=== PATIENT | female | born 1970 | race Caucasian/White ===

== ENCOUNTER 2018-08-04 10:23 | Emergency (ER) | payer SELFPAY ==
[2018-08-04 10:24] VITALS: BP 205/113; PULSE 84; RESP 16; TEMP 36.6; O2SAT 98; BMI 39.1
[2018-08-04 10:48] VITALS: BP 174/100; PULSE 76; RESP 16; O2SAT 98
--- NOTE | 2018-08-04 10:56 | EKG12_ITS ---
Test Reason : HTN Blood Pressure : / mmHG Vent. Rate : 065 BPM Atrial Rate : 065 BPM P-R Int : 204 ms QRS Dur : 164 ms QT Int : 446 ms P-R-T Axes : 066 -03 026 degrees QTc Int : 463 ms Normal sinus rhythm with sinus arrhythmia Right bundle branch block Abnormal ECG Confirmed by JUSTYN RONDON, GERONIMO ([id number]), city editor RHYS ALEJO ([id number]) on 08/06/2018 1:23:47 PM Referred By: OSIEL Confirmed By:GERONIMO ALEJANDRA MD
--- NOTE | 2018-08-04 10:59 | ED.DCSUM_ITS ---
- ER Visit Summary Date of Service: 08/04/18 Chief Complaint: High blood pressure History of Present Illness: The patient is a [address] Chin. She is unsure what her blood pressure typically is. She reports that she reports that she was told her blood pressure was slightly elevated at her last visit with Dr. Chin. She is not on any medications for this. She reports that she went to the dentist to have teeth pulled today and that her blood pressure was elevated so they were sent her here for evaluation. Patient reports that she feels great. She denies any chest pain, shortness of breath, headache, numbness, weakness, blurred or double vision. Review of systems: General: No fever, chills, cold sweats. Cardiovascular: No chest pain, palpitations. Respiratory: No cough, shortness of breath, dyspnea on exertion. Gastrointestinal: No abdominal pain, nausea, vomiting, diarrhea, melena, or hematochezia. Genitourinary: No dysuria, frequency, hematuria. Skin: No rash. Neuro: No headache, numbness, weakness. Physical Examination: Vitals: Stable. Afebrile. General: Well-nourished and well-developed. Head: Normocephalic atraumatic. Neck: Supple, no lymphadenopathy. No JVD. Nontender. Cardiovascular: Regular rate and rhythm. No murmurs. Respiratory: No respiratory distress. Clear to auscultation bilaterally. Abdominal: Soft, nontender, nondistended, normal bowel sounds. No guarding, rebound, or peritoneal signs. Back: Nontender. Extremities: Nontender, no edema. Skin: Normal color, no rash. Neurologic: Alert and oriented ?3. Cranial nerves II through XII are intact. Normal strength and sensation. Psych: Normal affect. Test Results: EKG is sinus at 65 with right bundle branch block. There is no old EKG for comparison. CBC is normal. Chem-7 is remarkable for potassium 3.4 and calcium of 11.0. Albumin is 3.7. Parathyroid hormone is 270.1. TSH is 16.3. Emergency Department Course and Treatment: Patient's blood pressure came down to 155/105 without treatment. Treatment Plan: Patient was discussed with Dr. Chin. She will be placed on atenolol 25 mg p.o. daily. She will have 50 mcg of levothyroxine added. Instructed to follow-up Dr. Chin within 1-2 weeks for further evaluation of her blood pressure and hyperparathyroidism. Return to the emergency department for any worsening symptoms. Disposition: To home in improved and stable condition. Impression: 1. Hypertension. 2. Hyperparathyroidism. 3. Elevated TSH on levothyroxine. This note was generated with [employer] dictation software. It may contain incorrect words, spelling, and punctuation that were not noted in review of the chart prior to signing ED Disposition - Plan for ED Patient: Chief Complaint: Hypertension Instructions: ED Hypertension New Begin Tx, Understanding Hyperparathyroidism Prescriptions: Atenolol [Tenormin] 25 mg PO DAILY #30 tablet Levothyroxine [Synthroid] 50 mcg PO DAILY #30 tablet Referrals: Rosa Elena Chin MD [Primary Care Provider] - 1-2 Weeks
[2018-08-04 11:19] LABS: Absolute Lymphocyte Count 1.08 X10^3/ul (0.83-4.51); Absolute Neutrophil Count 3.4 X10^3/uL (2.0-7.7); Basophil# 0.02 X10^3/uL; Basophil% 0.4 % (0-1); Eosinophil# 0.09 X10^3/uL; Eosinophils% 1.8 % (0-5); Lymphocyte # 1.08 X10^3/ul (4.0); Mean Corp Hgb Conc 34.2 g/gl (32-36); Mean Corpuscular Volume 84.6 fL (81-99); Mean Platelet Vol. 9.4 fl (6.2-12.0); Monocyte% 6.1 % (0-10); Neutrophil # 3.41 X10^3/uL (2.7-7.7); Neutrophil % 69.7 % (47-70); Platelet Count 285 K/mm3 (150-450); RBC Distribution Width CV 15.3 % (11.6-14.6); RBC Distribution Width SD 47.2 fl (35.1-43.9); Red Blood Count 4.49 M/mm3 (4.2-5.4); White Blood Count 4.9 K/mm3 (4.4-11.0)
[2018-08-04 11:20] LABS: POSITIVE COUNT NO; POSITIVE DIFFERENTIAL NO; POSITIVE MORPHOLOGY NO
[2018-08-04 11:41] LABS: Anion Gap 9 (5-15); BUN 16 mg/dL (7-18); BUN/Creat Ratio 25.9 RATIO (10-20); Chloride 106 mmol/L (98-107); Creatinine, Serum 0.62 mg/dL (0.55-1.02); EST Glomerular Filtration Rate 109 mL/min (>60); Est Glom Filt Rate - Afr Amer 132 mL/min (>60); Estimated Creatinine Clearance 107.91 ml/min; Glucose 104 mg/dL (74-106); Potassium 3.4 mmol/L (3.5-5.1); Sodium Level 140 mmol/L (136-145)
[2018-08-04 12:19] LABS: Albumin, Serum 3.7 g/dL (3.2-5.0)
[2018-08-04 12:24] VITALS: BP 161/117; PULSE 65; RESP 16; O2SAT 97
[2018-08-04 12:35] LABS: PTHIN 270.1 pg/mL (18.4-80.1)
[2018-08-04 13:19] VITALS: BP 181/106; PULSE 68; RESP 18; O2SAT 99
--- NOTE | 2018-08-04 13:19 | ED.RN ---
pt needed to leave d/t daughter waiting for her in car. informed pt she didn't have to wait for med from pharm if she didn't want to, that she could go get her script filled and take it today. pt verbalized liking that idea better and left.
== END 2018-08-04 13:21 | disposition home or self-care (01) ==
PROVIDERS: Emergency Provider Emergency Medicine; Family Provider Internal Medicine; PCP Internal Medicine
DX: I10 Essential (primary) hypertension (principal); E21.3 Hyperparathyroidism, unspecified; R79.89 Other specified abnormal findings of blood chemistry; I45.10 Unspecified right bundle-branch block; E03.9 Hypothyroidism, unspecified; Z79.899 Other long term (current) drug therapy
CPT/HCPCS: 80048; 82040; 82310; 83970; 84443; 84484; 85025; 93005; 99284; A4216

== ENCOUNTER → 2019-03-11 | Outpatient (CLI) | payer MEDICAID, SELFPAY ==
--- NOTE | 2019-03-11 | IMM_PTH ---
PATIENT: VANESSA DE LA PAZ LOC: [facility] U#:[id number] AGE/SX: 48/F ROOM: RE03/11/[address]: Dr. Yanely Cedeno MD : 1970 BED: DIS: 03/11/2019 SPEC #: [id number] RECD: 03/15/19 12:19 STATUS: [place] REQ #: [id number] KATHERINE: 03/11/19 00:[address]: Yanely Cedeno DEPT: IMMUNOHISTOCHEMISTRY RECD BY: Courtney Barber ENTERED: 03/15/19 12:21 SP TYPE: IMMUNO OTHR DR: Dr. Rosa Elena Chin MD Tissues: C - Thyroid gland, NOS Procedures: Thyroglobulin (add) BCL-2 (add) BCL-6 (add) CD10 (add) CD138 (add) CD20 (add) CD23 (add) CD3 (add) CD43 (add) CD45 (add) CD5 (add) CD79A (add) CYCLIN (add) MUM1 (add) Pankeratin (initial) PHYSICIAN & [address] [address] SPECIMEN INFORMATION: Tissue Source: C - Right thyroid FNA Clinical Info: Thyroid nodules Specimen Number: [id number] CPT code: 75867, 52180 x14 METHODOLOGY: Deparaffinized sections of prefer/formalin-fixed tissue or PAP/DQ stained slides are incubated with monoclonal/polyclonal antibodies/oligonucleotide probes. Localization is made via biotin free immunoperoxidase method. Appropriate controls are performed and reacted as expected. Results on target cell population are indicated in the following table: RESULTS: ANTIBODY / CLONE RESULT AE1-3 (AE1/AE3/PCK26) negative CD3 (PS1) positive CD5 (SP10) positive CD10 (56C6) positive CD20 (L26) positive CD23 (1B12) positive CD43 (L60) positive CD45 (RP2/18) positive CD79a (11E3) positive CD138 (B-A38) negative BCL-2 (bcl-2/100/D5) positive BCL-6 (YL676C/A8) positive Cyclin D1/BCL-1 (SP4) negative MUM1 (MRQ-43) negative Thyro (2H11+6E1) negative These tests were developed and their performance characteristics determined by [facility]. They may not have been cleared or approved by the U.S. Food and Drug Administration. The FDA has determined that such clearance or approval is not necessary. INTERPRETATION: Right thyroid, fine needle aspiration: Polytypic lymphoid cells present. AM:jovanny 03/16/19 Comment: Clinical correlation is necessary.
--- NOTE | 2019-03-11 14:00 | FLU_PTH ---
PATIENT: VANESSA DE LA PAZ LOC: [facility] U#:[id number] AGE/SX: 48/F ROOM: RE03/11/[address]: Dr. Yanely Cedeno MD : 1970 BED: DIS: 03/11/2019 SPEC #: [id number] RECD: 03/11/19 16:51 STATUS: [place] REKenny #: [id number] KATHERINE: 03/11/19 14:[address]: Yanely Cedeno DEPT: CYTOLOGY RECD BY: Gerardo Sofia ENTERED: 03/14/19 10:16 SP TYPE: Fluid OTHR DR: Dr. Rosa Elena Chin MD Tissues: A - Thyroid gland, NOS B - Thyroid gland, NOS C - Thyroid gland, NOS D - Thyroid gland, NOS Procedures: Special Stain Group II Surgery Specimen Level IV Cytospin Fluid HEADER OPERATION: Ultrasound-guided bilateral thyroid fine needle aspiration PRE-OP DIAGNOSIS: Thyroid nodules TISSUE SUBMITTED: A - Left thyroid FNA for cytology, B - Left thyroid FNA slides x6, C - Right thyroid FNA for cytology, D - Right thyroid FNA slides x6 DIAGNOSIS CYTOLOGY A. Fine needle aspiration, left thyroid nodule (cytospin and cell block): Negative for malignant cells. B. Fine needle aspiration, left thyroid nodule (smears): Chronic inflammation and rare follicular cells. Inadequate for further evaluation. C. Fine needle aspiration, right thyroid nodule (cytospin and cell block): Blood and polymorphous lymphocytes. Negative for malignancy. See comment. D. Fine needle aspiration, right thyroid nodule (smears): Consistent with chronic lymphocytic thyroiditis. AM:jovanny 03/15/19 COMMENT C. Immunohistochemistry ([id number]) supports the above diagnosis and reveals the lymphocytes to be polytypic. Clinical correlation is suggested. Case has been reviewed in consultation with Dr. Mckenna who concurs with the above diagnosis. IDC:SJ CYTOLOGY STUDY Slides are reviewed. CYTOLOGY GROSS A - Received is 27 ml of clear colorless fluid labeled with the patient's name and and designated per the requisition as left thyroid. Submitted for cytology preparation including cell block. B - Received are six smears labeled with the patient's name and designated per the requisition as left thyroid. Submitted for staining. C - Received is 27 ml of cloudy red fluid labeled with the patient's name and and designated per the requisition as right thyroid. Submitted for cytology preparation including cell block. D - Received are six smears labeled with the patient's name and designated per the requisition as right thyroid. Submitted for staining. 03/14/19 TC:3 CPT: 23237 x2, 54476 x2, 19528 x2
== END | disposition home or self-care (01) ==
LOC: LABSPEC 16:53
PROVIDERS: Family Provider Internal Medicine; PCP Internal Medicine; Referring Provider Surgery; Visit Provider Surgery
DX: E04.2 Nontoxic multinodular goiter (principal)
CPT/HCPCS: 88108; 88305; 88313; 88341; 88342

== ENCOUNTER 2019-06-06 02:21 | Inpatient (IN) | payer MEDICAID, SELFPAY ==
[2019-06-06] VITALS (21 sets, daily range): BP systolic 104–161; BP diastolic 60–128; PULSE 60–117; RESP 18–28; TEMP 36.4–36.8; O2SAT 73–98; BMI 41.3; BMI 41.1
--- NOTE | 2019-06-06 02:28 | ED.RN ---
CALLED FOR EKG PER RN REQUEST, PULLED OLD EKGS FOR
--- NOTE | 2019-06-06 02:30 | EKG12_ITS ---
Test Reason : SOB Blood Pressure : / mmHG Vent. Rate : 105 BPM Atrial Rate : 105 BPM P-R Int : 192 ms QRS Dur : 156 ms QT Int : 362 ms P-R-T Axes : 047 034 041 degrees QTc Int : 478 ms Sinus tachycardia Right bundle branch block Septal infarct , age undetermined Abnormal ECG Confirmed by JUSTYN RONDON, GERONIMO ([id number]), image editor CATHLEEN HENRIQUEZ ([id number]) on 06/07/2019 1:54:25 PM Referred By: ERIS Confirmed By:GERONIMO ALEJANDRA MD
--- NOTE | 2019-06-06 02:31 | CT_ITS ---
STUDY: CTA CHEST REASON FOR EXAM: Female, 48 years old. Dyspnea and tachycardia. RADIATION DOSAGE (If Supplied By Facility): CTDIvol = ( 15.04 ) mGy, DLP = ( 527.48 ) mGycm TECHNIQUE: The examination was performed with the intravenous administration of 100 ml of Isovue 370. Post-processing of the angiographic images was performed, with multiplanar reformation and 3D reconstruction. Individualized dose optimization techniques were used for this CT. COMPARISON: Prior comparison studies are not available for review at this time. FINDINGS: Normal enhancement of the main pulmonary artery and right and left pulmonary arteries. Normal enhancement of the bilateral peripheral pulmonary arteries. There is no demonstrated pulmonary embolism. There is atherosclerotic tortuosity of the aortic arch and descending thoracic aorta. Maximum transverse dimension of the ascending thoracic aorta measures approximately 3.5 cm. There is no demonstrated aortic dissection. Normal heart and pericardium. There are prominent subcarinal lymph nodes. There may also be hyperplastic prevascular and precarinal nodes. Normal hilar regions. Normal visualized trachea and bronchi. The lungs are well expanded. There is heterogeneous airspace consolidation within the right lung. There is also heterogeneous airspace consolidation within the lingula. Normal pleura. Normal chest wall structures. There are degenerative changes of thoracic spine. The sternum has a normal appearance. There is a severe enlargement of the right lobe of thyroid which is incompletely imaged on the current study. Estimated size of the thyroid measures approximately 8.9 cm in transverse dimension by 6.9 cm in AP dimension. Normal visualized upper abdomen. CT/CTA Chest W/WO Contrast IMPRESSION: 1. No CTA demonstrated pulmonary embolism or arterial dissection. 2. Extensive right-sided airspace consolidation as well as left upper lobe airspace disease suggesting pneumonia, sequela of aspiration pneumonitis or pulmonary hemorrhage. Electronically Signed: Alayna Mathew MD at 3:53 EDT , Service support ,
--- NOTE | 2019-06-06 02:32 | ED.DCSUM_ITS ---
- ER Visit Summary Date of Service: 06/06/19 Chief Complaint: Shortness of breath History of Present Illness: The patient is a 48 F who presents with shortness of breath that has been getting worse over the past week. Patient states she felt like she had pneumonia. Patient states she had an x-ray which did not show any acute infiltrate. Patient states her breathing became worse today. Patient states nothing seems to make her breathing better or worse. Patient admits to a cough. Patient denies any fevers or chills. Patient admits to some pain in her chest with coughing and deep breathing. Patient denies any leg swelling. Patient denies any recent travel or recent surgery. Physical Examination: Vital signs showed blood pressure 161/128, pulse of 114, respiratory rate of 26, pulse oximeter 73% on room air. Patient is afebrile. Heart was regular and tachycardic. Lungs were diminished bilaterally. There is adequate respiratory effort. There are no retractions noted. Abdomen is soft and nontender. Cranial nerves II through XII are intact. There are no focal m otor or sensory deficits noted. Extremities are intact. There is no pitting edema. There is no calf tenderness noted. Test Results: EKG showed sinus tachycardia with a rate of 105. There is a right bundle branch block pattern noted. There are no acute ST or T wave changes noted. This was unchanged compared to previous EKG dated 08/10/2018. CBC was within normal limits. Comprehensive metabolic profile shows slightly elevated glucose of 208. BUN was slightly elevated at 22. Troponin was normal. BNP was normal. Arterial blood gas showed a pH of 7.31 with a PCO2 of 37.8, PO2 of 96, bicarb of 19.0, and oxygen saturation of 97% on nonrebreather mask. CT scan of the chest was obtained. There is no evidence of pulmonary embolism. There is extensive right-sided airspace disease and left upper lobe airspace disease. Lactate was elevated at 3.3. Blood cultures were obtained. Emergency Department Course and Treatment: Patient was given a DuoNeb aerosol here. Patient was started on Levaquin. Patient was feeling better on reevaluation. Patient was able to tolerate nasal cannula oxygen. Case was discussed with the hospitalist. Disposition: Admit to hospital Impression: 1. Community-acquired pneumonia 2. Hypoxia 3. Severe sepsis This note was generated with Dragon dictation software. It may contain incorrect words, spelling, and punctuation that were not noted in review of the chart prior to signing ED Disposition - Plan for ED Patient: Disposition: Acute Care Hospital [facility] [place] Diagnosis: Community acquired pneumonia, Hypoxia, Severe sepsis Referrals: Rosa Elena Chin MD [Primary Care Provider] -
[2019-06-06 02:42] LABS: Absolute Lymphocyte Count 2.37 X10^3/ul (0.83-4.51); Absolute Neutrophil Count 2.5 X10^3/uL (2.0-7.7); Basophil# 0.06 X10^3/uL; Basophil% 1.1 % (0-1); Eosinophils% 3.7 % (0-5); Hematocrit 42.5 % (37-47); Hemoglobin 14.4 g/dl (12.0-15.0); Lymphocyte # 2.37 X10^3/ul (4.0); Lymphocyte % 43.4 % (19-41); Mean Corp Hgb Conc 33.9 g/gl (32-36); Mean Corpuscular Hgb 29.6 pg (27.0-32.0); Mean Corpuscular Volume 87.3 fL (81-99); Mean Platelet Vol. 9.6 fl (6.2-12.0); Monocyte# 0.33 X10^3/uL; Neutrophil # 2.49 X10^3/uL (2.7-7.7); Neutrophil % 45.6 % (47-70); Platelet Count 298 K/mm3 (150-450); RBC Distribution Width CV 14.9 % (11.6-14.6); RBC Distribution Width SD 47.8 fl (35.1-43.9); Red Blood Count 4.87 M/mm3 (4.2-5.4); White Blood Count 5.5 K/mm3 (4.4-11.0)
[2019-06-06 02:45] LABS: POSITIVE COUNT NO; POSITIVE DIFFERENTIAL NO; POSITIVE MORPHOLOGY NO
[2019-06-06 03:01] LABS: Base Excess -7 mmol/L (-2 to +2); Blood Gas Specimen Type ART; O2 Delivery Device NRB Mask; PO2 96 mmHG (75-100); SITE L Radial; SO2 97 % (95-99); Time Given 255; Total Carbon Dioxide 20 mmol/L; pCO2 37.8 mmHg (35-45); pH 7.31 (7.35-7.45)
[2019-06-06 03:01] LABS: ALB/GLOB Ratio 1.1 RATIO (0.9-2.4); AST(SGOT) 43 U/L (15-37); Alanine Aminotransfer ALT/SGPT 32 U/L (13-56); Albumin, Serum 3.5 g/dL (3.2-5.0); Alkaline Phosphatase 94 U/L (45-117); Anion Gap 9 (5-15); BUN 22 mg/dL (7-18); BUN/Creat Ratio 26.6 RATIO (10-20); Calcium,Total 9.7 mg/dL (8.5-10.1); Chloride 111 mmol/L (98-107); Creatinine, Serum 0.83 mg/dL (0.55-1.02); EST Glomerular Filtration Rate 78 mL/min (>60); Est Glom Filt Rate - Afr Amer 94 mL/min (>60); Estimated Creatinine Clearance 76.75 ml/min; Globulin 3.3 g/dL (2.2-4.2); Glucose 208 mg/dL (74-106); Potassium 4.2 mmol/L (3.5-5.1); Protein, Total 6.8 g/dL (6.4-8.2); Sodium Level 141 mmol/L (136-145)
[2019-06-06] MEDS: Ipratropium/Albuterol Sulfate 3 ML AMPUL.NEB INHALATION ×5 (03:10→18:50)
[2019-06-06 03:22] LABS: BNP,B-Type NATRIURETIC PEPTIDE 53.2 pg/mL (0-100)
[2019-06-06 04:30] LABS: Lactic Acid 3.3 mmol/L (0.4-2.0)
[2019-06-06] MEDS: levoFLOXacin IV 750 MG/150 ML BAG 100 MG IV ×2 (04:31→21:28)
[2019-06-06] MEDS: 0.9% Normal Saline 1,000 ML 1000 ML IV (04:31)
--- NOTE | 2019-06-06 04:39 | HP.PCM_ITS ---
Problem List (1) Hypertension Status: Chronic Qualifiers: Hypertension type: essential hypertension Qualified Code(s): I10 - Essential (primary) hypertension (2) Hypothyroidism Status: Chronic Qualifiers: Hypothyroidism type: unspecified Qualified Code(s): E03.9 - Hypothyroidism, unspecified (3) Community acquired pneumonia Status: Acute Qualifiers: Laterality: right Lung location: unspecified part of lung Qualified Code(s): J18.9 - Pneumonia, unspecified organism (4) Severe sepsis Status: Acute (5) Acute respiratory failure with hypoxia Status: Acute (6) Thyroid mass Status: Chronic History of Present Illness Date of Admission: 06/06/19 Chief Complaint: SOB x 2 weeks The patient is a 48 year old F with past medical history of hypothyroidism, (with thyroid mass, due for surgery next month), hypertension, who comes in with progressive shortness of breath that is not relieved with breathing treatments. She went to the urgent care and x-ray did not show pneumonia. She had been coughing up some phlegm but denied any fever or chills. No sick contacts. Her breathing got progressively worse and she called the EMS. She has been coughing up blood, describes a sputum was pink frothy. Patient SPO2 was 85%, and saturating on 6 L via nasal cannula oxygen, later transitioned to nonrebreather at 15 L/min. On arrival to the emergency department her SPO2 was 73% on room air, blood pressure is 161/128, temperature 98.1 F, heart rate 114, respiratory rate was 26, she later improved nasal cannula oxygen. His CBCD was unremarkable, BMP was remarkable for BUN of 22 creatinine 0.83, glucose 208, lactic acid 3.3, BNpep was 53.2. CTA of the chest showed no PE or arterial dissection. Showed extensive right-sided airspace consolidation as well as left upper lobe airspace disease, suggestive also pulmonary hemorrhage. Past Medical History Past Medical History (Chronic Problems): Chronic Problems Hypertension (Chronic) Hypothyroidism (Chronic) Thyroid mass (Chronic) Allergies codeine Allergy (Verified 06/06/19 02:27) Other Home Medications: Ambulatory Orders Medication Instructions Recorded Levothyroxine Sodium 200 mcg PO DAILY 09/29/13 Atenolol [Tenormin] 25 mg PO DAILY #30 tablet 08/04/18 Levothyroxine [Synthroid] 50 mcg PO DAILY #30 tablet 08/04/18 Surgical History: - - status post bilateral tubal ligation Psychiatric History: No pertinent psych hx GRIEVANCE MANAGER History: No pertinent GRIEVANCE MANAGER history Lives: With Family Smoking Status: Never smoker Tobacco Use: Non-smoker Alcohol: None Drugs: None - *Family History Maternal History Items: Heart Disease - [place] at 38yrs Paternal History Items: Diabetes Review of Systems Constitutional: Reports: Weakness, Fatigue. Denies: Anorexia, Chills, Fever, Night Sweats, Malaise, Weight Change Eyes: Denies: Blurred vision, Cataracts, Conjunctivae Inflammation, Pain, Redness, Vision Change HEENT: Denies: Difficulty Hearing, Difficulty Swallowing, Head Aches, Hearing Changes, Sinus Congestion, Sinus Drainage, Sore Throat Cardiovascular: Reports: Chest Pain. Denies: Light Headedness, Orthopnea, Palpitations, Paroxysmal Noc. Dyspnea, Syncope Respiratory: Reports: Cough, Hemoptysis, Pleuritic Pain, Shortness of Breath, Shortness of breath at rest, Shortness of breath upon exertion, Sputum production, Wheezing Gastrointestinal: Denies: Abdominal Pain, Constipation, Hematemesis, Hematochezia, Nausea, Vomiting Genitourinary: Denies: Dysuria, Frequency Gynecological: Denies: Breast symptoms, Excessively long or heavy periods Musculoskeletal: Denies: Joint Pain, Joint stiffness, Joint swelling, Joint Tenderness, Leg Pain, Muscle pain Skin: Denies: Rash, Wounds Neurological: Denies: Difficulty swallowing, Focal weakness, Numbness, Tingling Psychiatric: Denies: Anxiety, Depression, Homicidal Ideations, Suicidal Ideations Hematologic/ Lymphatic: Denies: Easy Bruising, Easy Bleeding VTE Information - Inpt Only VTE Present on Admission: No VTE Pharm Prophylaxis ordered?: Yes Patient Problems: Active and Suspected Problems Community acquired pneumonia (Acute) Hypoxia (Acute) Severe sepsis (Acute) Acute respiratory failure with hypoxia (Acute) - Physical Exam General: Alert, Oriented x3, Cooperative, - - in mild respiratory distress, coughing up pink frothy sputum, obese HEENT: Atraumatic, PERRLA, EOMI, Normocephalic Oral: Moist Mucosa Neck: Supple, - - Thyroid mass/enlargement, bilaterally, more on the right Lungs: Clear to auscultation, Normal air movement Cardiovascular: Regular rate, Regular Rhythm, Normal S1, Normal S2, No murmurs Abdomen: Bowel Sounds Present, Soft, Non Tender, Non-Distended, No Hepato- splenomegaly Extremities: Edema - Trace bilateral pedal edema Skin: No rashes, No breakdown Musculoskeletal: No Tenderness to Palpation of Joints or Extremities Lymphatic: No Cervical, Supraclavicular, or Inguinal Adenopathy Neurological: Cranial nerves II-XII grossly intact, Neuro grossly intact Psych/Mental Status: Normal Affect, Appropriate Vital Signs Temp Pulse Resp BP Pulse Ox 98.1 F 90 19 H 111/75 94 06/06/19 02:23 06/06/19 04:21 06/06/19 04:21 06/06/19 04:21 06/06/19 04:21 Oxygen Delivery Method Nasal Cannula Weight: 116.1 kg Body Mass Index (BMI) 41.3 Laboratory Tests Past 24 Hrs 06/06/19 06/06/19 06/06/19 02:34 02:34 02:34 WBC 5.5 RBC 4.87 Hgb 14.4 Hct 42.5 MCV 87.3 MCH 29.6 MCHC 33.9 RDW 14.9 H RDW Differential 47.8 H Plt Count 298 MPV 9.6 Immature Gran % (Auto) 0.200 Neut % (Auto) 45.6 L Lymph % (Auto) 43.4 H Franklin % (Auto) 6.0 Eos % (Auto) 3.7 Baso % (Auto) 1.1 H Absolute Neuts (auto) 2.5 Absolute Lymphs (auto) 2.37 Total Counted Not Reportable Specimen Type Sample Site pH Bicarbonate Actual POC Total CO2 Base Excess O2 Saturation ABG pCO2 ABG pO2 Deon Test O2 Delivery Device Liter Flow Blood Gas Notified Whom Blood Gas Notified Time Sodium 141 Potassium 4.2 Chloride 111 H Carbon Dioxide 21.0 Anion Gap 9 BUN 22 H Creatinine 0.83 Estim Creat Clear Calc 76.75 Est GFR (MDRD) Af Amer 94 Est GFR (MDRD) Non-Af 78 BUN/Creatinine Ratio 26.6 H Glucose 208 H Lactic Acid Calcium 9.7 Total Bilirubin 0.40 AST 43 H ALT 32 Alkaline Phosphatase 94 Troponin I < 0.015 B-Natriuretic Peptide 53.2 Total Protein 6.8 Albumin 3.5 Globulin 3.3 Albumin/Globulin Ratio 1.1 06/06/19 06/06/19 02:56 03:46 WBC RBC Hgb Hct MCV MCH MCHC RDW RDW Differential Plt Count MPV Immature Gran % (Auto) Neut % (Auto) Lymph % (Auto) Franklin % (Auto) Eos % (Auto) Baso % (Auto) Absolute Neuts (auto) Absolute Lymphs (auto) Total Counted Specimen Type ART Sample Site L Radial pH 7.31 L Bicarbonate Actual 19.0 L POC Total CO2 20 Base Excess -7 L O2 Saturation 97 ABG pCO2 37.8 ABG pO2 96 Deon Test NA O2 Delivery Device NRB Mask Liter Flow 15.0 Blood Gas Notified Whom ED MD Blood Gas Notified Time 255 Sodium Potassium Chloride Carbon Dioxide Anion Gap BUN Creatinine Estim Creat Clear Calc Est GFR (MDRD) Af Amer Est GFR (MDRD) Non-Af BUN/Creatinine Ratio Glucose Lactic Acid 3.3 H Calcium Total Bilirubin AST ALT Alkaline Phosphatase Troponin I B-Natriuretic Peptide Total Protein Albumin Globulin Albumin/Globulin Ratio Assessment/Plan All Active Problems Community acquired pneumonia (Acute) Hypoxia (Acute) Severe sepsis (Acute) Acute respiratory failure with hypoxia (Acute) 48 year old F with past medical history of hypothyroidism, (with thyroid mass, d ue for surgery next month), hypertension, who comes in with progressive shortness of breath that is not relieved with breathing treatments, and pink frothy sputum production. She was found to have elevated lactic acid of 3.[address] of the chest showed extensive pneumonia. 1. Severe sepsis secondary to community-acquired pneumonia, (tachycardia, tachypnea, elevated lactic acid) Plan: Admit to PCU, continue on IV fluids, IV antibiotics -levaquin, follow-up on blood cultures taken in the ED, urine streptococcal and legionella antigen 2. Hemoptysis likely secondary to extensive community-acquired pneumonia, stable hemoglobin, pulmonary consulted 3. Hypertension, controlled, continue home atenolol with holding parameters 4. Thyroid mass, hypothyroidism, patient is due for surgery next month, continue levothyroxine 5. Morbid obesity, BMI 41.3, lifestyle modification advised 6. DVT PPx- SCDs on account of hemoptysis Code Visit Inpatient E&M: 18983 Init Hosp L3
[2019-06-06] MEDS: 0.9% Normal Saline 1,000 ML 150 ML IV ×3 (06:53→20:14)
--- NOTE | 2019-06-06 07:10 | PCM.CONS.PUL ---
Reason for Consult Date of Consultation: 06/06/19 Reason for Consultation: Hemoptysis, community-acquired pneumonia History of Present Illness: The patient is a 48-year-old female, with a history as outlined below, who presented to the emergency department on June 06 with complaints of shortness of breath. The patient reports that approximately 1 week ago she was evaluated in a local urgent care over concerns for pneumonia. Chest x-ray apparently revealed no evidence concerning for a pulmonary infectious process. The patient was provided with bronchodilators. She states that she continued to experience shortness of breath and generalized malaise over the ensuing week. She is a lifelong non-smoker and denies a history of COPD or asthma. She does not routinely utilize bronchodilators at her baseline. She does report the presence of a productive cough. She denies the presence of hemoptysis. However, she did report pink/frothy sputum for a period of time. Nevertheless, her reports of sputum production have decreased since being admitted to the hospital. She does report feeling better overall since her admission. She denies a personal history of any autoimmune disorders or vasculitides. She is not on any systemic anticoagulants as an outpatient. On presentation to the emergency department, the patient was noted to be afebrile, tachycardic, hypertensive and tachypneic. She was initially documented to be saturating 73% on room air. Initial laboratory evaluation revealed no evidence of a leukocytosis. Arterial blood gas obtained on a nonrebreather revealed a pH of 7.3 with a corresponding PCO2 of 37 and PO2 of 96. Chemistry profile was largely unrevealing. Lactate was mildly elevated at 3.3. CTA chest revealed multifocal airspace disease most pronounced at the right hemithorax. The patient was given aerosol treatments and started on antibiotics. She was subsequently admitted to the progressive care unit for further management. Past Medical History Past Medical History (Chronic Problems): Chronic Problems Hypertension (Chronic) Hypothyroidism (Chronic) Thyroid mass (Chronic) Allergies codeine Allergy (Verified 06/06/19 02:27) Other Home Medications: Ambulatory Orders Medication Instructions Recorded Levothyroxine Sodium 200 mcg PO DAILY 09/29/13 Atenolol [Tenormin] 25 mg PO DAILY #30 tablet 08/04/18 Levothyroxine [Synthroid] 25 mcg PO MOTUWETHFRSA 06/06/19 Surgical History: - - status post bilateral tubal ligation Psychiatric History: No pertinent psych hx SHANK ARCHER History: No pertinent SHANK ARCHER history Lives: With Family Smoking Status: Never smoker Tobacco Use: Non-smoker Alcohol: None Drugs: None - *Family History Maternal History Items: Heart Disease - [place] at 38yrs Paternal History Items: Diabetes Review of Systems Constitutional: Reports: Malaise Eyes: Denies: Blurred vision, Double vision HEENT: Denies: Head Aches, Sinus Congestion, Sinus Drainage Cardiovascular: Denies: Chest Pain, Palpitations Respiratory: Reports: Cough, Shortness of Breath, Sputum production Gastrointestinal: Denies: Abdominal Pain, Nausea, Vomiting Genitourinary: Denies: Dysuria Musculoskeletal: Denies: Joint Pain, Joint Tenderness Skin: Denies: Rash, Wounds Neurological: Denies: Numbness, Tingling, Focal weakness Psychiatric: Denies: Anxiety, Depression, Homicidal Ideations, Suicidal Ideations Hematologic/ Lymphatic: Denies: Hx of blood clot Patient Problems: Active and Suspected Problems Community acquired pneumonia (Acute) Hypoxia (Acute) Severe sepsis (Acute) Acute respiratory failure with hypoxia (Acute) Objective: The patient's most recent lab work, culture data and imaging studies have all been personally reviewed. - Physical Exam General: Alert, Cooperative, No apparent distress HEENT: Atraumatic, PERRLA, Normocephalic Oral: No Gingival or Mucosal Lesions/ Ulcerations Neck: Supple, No Nodes, Trachea Midline Lungs: No rhonchi, No wheeze, Rales Cardiovascular: Regular rate, Regular Rhythm, Normal S1, Normal S2, No murmurs Abdomen: Bowel Sounds Present, Soft, Non Tender, Obese Extremities: No clubbing, No cyanosis Skin: No breakdown Musculoskeletal: No Tenderness to Palpation of Joints or Extremities, No Muscle Wasting Lymphatic: No Cervical, Supraclavicular, or Inguinal Adenopathy Neurological: Cranial nerves II-XII grossly intact, Neuro grossly intact Psych/Mental Status: Alert and oriented to time, place, person, mood and affect Vital Signs Temp Pulse Resp BP Pulse Ox 98.3 F 89 20 H 109/72 94 06/06/19 05:55 06/06/19 07:07 06/06/19 07:07 06/06/19 05:55 06/06/19 07:07 Oxygen Flow Rate (L/min) 5 Oxygen Delivery Method Room Air Weight: 254 lb 10.142 oz Body Mass Index (BMI) 41.1 Intake and Output for Last 24 Hours 06/04/19 06/05/19 06/06/19 23:59 23:59 23:59 Intake Total 166 / 166 Balance 166 / 166 Laboratory Tests Past 24 Hrs 06/06/19 06/06/19 06/06/19 02:34 02:34 02:34 WBC 5.5 RBC 4.87 Hgb 14.4 Hct 42.5 MCV 87.3 MCH 29.6 MCHC 33.9 RDW 14.9 H RDW Differential 47.8 H Plt Count 298 MPV 9.6 Immature Gran % (Auto) 0.200 Neut % (Auto) 45.6 L Lymph % (Auto) 43.4 H [place] % (Auto) 6.0 Eos % (Auto) 3.7 Baso % (Auto) 1.1 H Absolute Neuts (auto) 2.5 Absolute Lymphs (auto) 2.37 Total Counted Not Reportable Specimen Type Sample Site pH Bicarbonate Actual POC Total CO2 Base Excess O2 Saturation ABG pCO2 ABG pO2 Deon Test O2 Delivery Device Liter Flow Blood Gas Notified Whom Blood Gas Notified Time Sodium 141 Potassium 4.2 Chloride 111 H Carbon Dioxide 21.0 Anion Gap 9 BUN 22 H Creatinine 0.83 Estim Creat Clear Calc 76.75 Est GFR (MDRD) Af Amer 94 Est GFR (MDRD) Non-Af 78 BUN/Creatinine Ratio 26.6 H Glucose 208 H Lactic Acid Calcium 9.7 Total Bilirubin 0.40 AST 43 H ALT 32 Alkaline Phosphatase 94 Troponin I < 0.015 B-Natriuretic Peptide 53.2 Total Protein 6.8 Albumin 3.5 Globulin 3.3 Albumin/Globulin Ratio 1.1 06/06/19 06/06/19 02:56 03:46 WBC RBC Hgb Hct MCV MCH MCHC RDW RDW Differential Plt Count MPV Immature Gran % (Auto) Neut % (Auto) Lymph % (Auto) [place] % (Auto) Eos % (Auto) Baso % (Auto) Absolute Neuts (auto) Absolute Lymphs (auto) Total Counted Specimen Type ART Sample Site L Radial pH 7.31 L Bicarbonate Actual 19.0 L POC Total CO2 20 Base Excess -7 L O2 Saturation 97 ABG pCO2 37.8 ABG pO2 96 Deon Test NA O2 Delivery Device NRB Mask Liter Flow 15.0 Blood Gas Notified Whom ED Blood Gas Notified Time 255 Sodium Potassium Chloride Carbon Dioxide Anion Gap BUN Creatinine Estim Creat Clear Calc Est GFR (MDRD) Af Amer Est GFR (MDRD) Non-Af BUN/Creatinine Ratio Glucose Lactic Acid 3.3 H Calcium Total Bilirubin AST ALT Alkaline Phosphatase Troponin I B-Natriuretic Peptide Total Protein Albumin Globulin Albumin/Globulin Ratio Clinical Impression(s) from Imaging Studies Chest CTA 06/06/19 02:31 IMPRESSION: 1. No CTA demonstrated pulmonary embolism or arterial dissection. 2. Extensive right-sided airspace consolidation as well as left upper lobe airspace disease suggesting pneumonia, sequela of aspiration pneumonitis or pulmonary hemorrhage. Electronically Signed: Alayna Mathew MD at 3:53 EDT , Service support , Assessment/Plan All Active Problems Community acquired pneumonia (Acute) Hypoxia (Acute) Severe sepsis (Acute) Acute respiratory failure with hypoxia (Acute) RECOMMENDATIONS: 1. Continue empiric antimicrobials. Recommend a total 7-day treatment course. 2. Obtain and send sputum for culture. Check MRSA screen and respiratory viral panel. 3. Encourage incentive spirometer use and mobilize patient as tolerated. 4. Perform walking oximetry study prior to consideration for discharge from the hospital. 5. Discontinue duo nebs. IMPRESSIONS: 1. Severe sepsis The patient does appear to have required nonrebreather supplemental oxygen upon arrival to the emergency department due to profound hypoxemia. Subsequent chest imaging did reveal the presence of multifocal airspace disease, most pronounced throughout the right hemithorax. While there was some initial report of hemoptysis, upon my discussion with the patient, she only reported the presence of pink/frothy sputum. Overall, the patient feels much clinically improved since her admission. I agree with continuing empiric antibiotics over concerns for community-acquired pneumonia. Infectious work-up is currently underway. The patient has no history of obstructive lung disease. Therefore, DuoNeb's can be discontinued from my perspective. 2. Obesity/hypothyroidism/hypertension Complicates care, management, recovery and prognosis. Continue home medications as indicated. This note was generated with [employer] software. It may contain incorrect words, spelling, and punctuation that were not noted in checking the note before signing. Code Visit Inpatient E&M: 21862 Init Hosp L3
[2019-06-06 07:49] LABS: Reflex Lactate? Y
--- NOTE | 2019-06-06 08:13 | PCM.PROGNOTE ---
Patient Problems: Active and Suspected Problems Community acquired pneumonia (Acute) Hypoxia (Acute) Severe sepsis (Acute) Acute respiratory failure with hypoxia (Acute) Subjective: The patient is a 48-year-old female with a past medical history of hypothyroidism (with thyroid mass, scheduled for surgery next month), hypertension and obesity who presented to the emergency room at [facility] on 06/06/2019 complaining of shortness of breath and cough for the preceding 2 weeks. She had been seen at an urgent care 1 week prior to coming to the emergency department and had a chest x-ray that did not show pneumonia. She denied fever or chills. She had been coughing up pink frothy sputum. Pulse ox on room air in the emergency room was 73%. Pulse ox was 85% on a 6 L nasal cannula. She was transitioned to a nonrebreather and the pulse ox was 98%. Lab in the emergency room showed white blood cell count of 5.5 with an unremarkable differential. Hemoglobin and platelets were within normal limits. An ABG done on a nonrebreather revealed a pH of 7.31, PCO2 of 37.8 and PO2 of 96. CMP showed a BUN of 22 with a creatinine of 0.83. Lactic acid was 3.3 and a random blood sugar was 208. LFTs were unremarkable. Streptococcal and Legionella antigens in the urine were negative. CTA of the chest showed no pulmonary embolism or arterial dissection. There was extensive right-sided airspace consolidation as well as left upper lobe airspace disease suggesting pneumonia. She was admitted to a monitored bed on PCU with a diagnosis of community-acquired pneumonia and started on Levaquin 750 mg every 24 hours, [id number] aerosolized bronchodilators and IV fluids. Consultation was ordered with Dr. Alexandro Carrasco. Sputum culture was ordered Afebrile since admission. Vital signs are stable. Pulse ox on room air is 94 to 96% at rest. Repeat lactic acid was decreasing at 2.6. Respiratory panel is negative Legionella and streptococcal antigens in the urine were negative. Sputum Gram stain shows 3+ white blood cells with 3+ gram-positive cocci in chains and clusters and 2+ gram-positive rods. MRSA nasal swab was negative. She tells me she feels better since admission and is wondering when she will be discharged. She is complaining of some chest tightness but no actual pain. The tightness is predominantly with coughing. The cough is less than it has been. She tells me that she was wheezing at home but since she has been taking the aerosol treatments this is much improved. - Physical Exam General: Alert, Oriented x3, Cooperative, - - Sitting in the recliner at the bedside. No acute distress the present time HEENT: Atraumatic, PERRLA, EOMI Oral: Dry Mucosa Neck: Supple, No Nodes, Trachea Midline Lungs: No rhonchi, No wheeze, Rales - There are Rales throughout the right side both anterior and posterior. She also has rales in the left base posteriorly and in the left upper chest anteriorly., - - She has no conversational dyspnea and no accessory muscle use. Cardiovascular: Regular rate, Regular Rhythm, Normal S1, Normal S2, No murmurs, No Gallop Abdomen: Bowel Sounds Present, Soft, Non Tender, Non-Distended, Obese Extremities: No clubbing, No cyanosis, No edema Skin: No rashes Neurological: Cranial nerves II-XII grossly intact, Neuro grossly intact Psych/Mental Status: Normal Affect, Appropriate Vital Signs Temp Pulse Resp BP Pulse Ox 98.3 F 76 20 H 109/72 94 06/06/19 05:55 06/06/19 07:18 06/06/19 07:07 06/06/19 05:55 06/06/19 07:07 Oxygen Flow Rate (L/min) 5 Oxygen Delivery Method Room Air Weight: 254 lb 10.142 oz Body Mass Index (BMI) 41.1 Intake and Output for Last 24 Hours 06/04/19 06/05/19 06/06/19 23:59 23:59 23:59 Intake Total 166 / 166 Balance 166 / 166 Microbiology Past 72 Hours 06/06/19 06:40 Streptococcus pneumoniae Antigen (M - Final Urine, Clean Catch 06/06/19 06:40 Legionella Antigen - Final Urine, Clean Catch Laboratory Tests Past 24 Hrs 06/06/19 06/06/19 06/06/19 02:34 02:34 02:34 WBC 5.5 RBC 4.87 Hgb 14.4 Hct 42.5 MCV 87.3 MCH 29.6 MCHC 33.9 RDW 14.9 H RDW Differential 47.8 H Plt Count 298 MPV 9.6 Immature Gran % (Auto) 0.200 Neut % (Auto) 45.6 L Lymph % (Auto) 43.4 H [place] % (Auto) 6.0 Eos % (Auto) 3.7 Baso % (Auto) 1.1 H Absolute Neuts (auto) 2.5 Absolute Lymphs (auto) 2.37 Total Counted Not Reportable Specimen Type Sample Site pH Bicarbonate Actual POC Total CO2 Base Excess O2 Saturation ABG pCO2 ABG pO2 Deon Test O2 Delivery Device Liter Flow Blood Gas Notified Whom Blood Gas Notified Time Sodium 141 Potassium 4.2 Chloride 111 H Carbon Dioxide 21.0 Anion Gap 9 BUN 22 H Creatinine 0.83 Estim Creat Clear Calc 76.75 Est GFR (MDRD) Af Amer 94 Est GFR (MDRD) Non-Af 78 BUN/Creatinine Ratio 26.6 H Glucose 208 H Lactic Acid Calcium 9.7 Total Bilirubin 0.40 AST 43 H ALT 32 Alkaline Phosphatase 94 Troponin I < 0.015 B-Natriuretic Peptide 53.2 Total Protein 6.8 Albumin 3.5 Globulin 3.3 Albumin/Globulin Ratio 1.1 06/06/19 06/06/19 06/06/19 02:56 03:46 08:06 WBC RBC Hgb Hct MCV MCH MCHC RDW RDW Differential Plt Count MPV Immature Gran % (Auto) Neut % (Auto) Lymph % (Auto) [place] % (Auto) Eos % (Auto) Baso % (Auto) Absolute Neuts (auto) Absolute Lymphs (auto) Total Counted Specimen Type ART Sample Site L Radial pH 7.31 L Bicarbonate Actual 19.0 L POC Total CO2 20 Base Excess -7 L O2 Saturation 97 ABG pCO2 37.8 ABG pO2 96 Deon Test NA O2 Delivery Device NRB Mask Liter Flow 15.0 Blood Gas Notified Whom ED MD Blood Gas Notified Time 255 Sodium Potassium Chloride Carbon Dioxide Anion Gap BUN Creatinine Estim Creat Clear Calc Est GFR (MDRD) Af Amer Est GFR (MDRD) Non-Af BUN/Creatinine Ratio Glucose Lactic Acid 3.3 H Pending Calcium Total Bilirubin AST ALT Alkaline Phosphatase Troponin I B-Natriuretic Peptide Total Protein Albumin Globulin Albumin/Globulin Ratio Medical Necessity - Tobacco Use Smoking Status: Never smoker Tobacco Use: Non-smoker Assessment/Plan All Active Problems Community acquired pneumonia (Acute) Hypoxia (Acute) Severe sepsis (Acute) Acute respiratory failure with hypoxia (Acute) Impressions 1. Severe sepsis secondary to community-acquired pneumonia with acute hypoxic respiratory failure 2. Community-acquired pneumonia 3. Acute hypoxic respiratory failure 4. Morbid obesity 5. Hypertension 6. Hypothyroidism 7. Thyroid mass-scheduled for surgery in June 2019 Continue Levaquin Continue [id number] aerosol treatments Await the results of the sputum culture Ambulatory pulse ox prior to discharge I reviewed Dr. Carrasco's consultation and appreciate his input.
[2019-06-06 08:40] LABS: Lactic Acid 2.6 mmol/L (0.4-2.0)
[2019-06-06] MEDS: Atenolol 25 MG Tablet PO (08:50)
[2019-06-06] MEDS: Levothyroxine 100 MCG Tablet 200 MCG PO (11:21)
[2019-06-06] MEDS: Levothyroxine 25 MCG TABLET PO (11:21)
[2019-06-06 11:30] LABS: Prothrombin Time (Protime)PT. 13.4 SECONDS (11.7-14.9)
--- NOTE | 2019-06-06 12:15 | CASEMGMT ---
RN CM Assessment Introduced role of RN CM to patient.? Patient is alert, oriented and able?to participate in RN CM Assessment. ?Care providers, pharmacy, and demographics verified. Presentation: SOB that has been getting worse over the past week Admit Dx: CAP Re-Admit: No Barriers/Issues: None PCP: Rosa Elena Chin Specialists: Referred to Surgeon in [place] to remove Thyroid Pref[facility] Insurance: [employer] Adv CAROL Rx Benefit:?Yes LNOK: Adis Chris, Adis Escudero- works for [employer] Dept LW/HPOA: None, Denies offered information Living Arrangements:?Lives in a [place] home with adult Dtr and 4 adopted kids. 1 step to enter home. ADL?s: Independent with ambulation and ADLs, patient works FT Transportation: Patient drives, Adis Escudero will transport on DC DME: [facility] HHC: None SNF: None Goal: Home, does not think will have any needs, denies questions/concerns/issues with DC. Aware CM remains available for any emerging needs. DC PLAN: Home with no anticipated needs identified at this time. Eliza Leal RNCM
[2019-06-06 12:47] LABS: M R Staph aureus DNA By PCR Negative (Negative); Probe Check PASS; Specimen Processing Control PASS
[2019-06-06] MEDS: Acetaminophen 325 MG Tablet 650 MG PO (17:34)
[2019-06-07] VITALS (14 sets, daily range): BP systolic 127–144; BP diastolic 74–90; PULSE 66–86; RESP 16–20; TEMP 36.3–36.4; O2SAT 94–98
[2019-06-07] MEDS: Ipratropium/Albuterol Sulfate 3 ML AMPUL.NEB INHALATION ×4 (02:28→15:45)
[2019-06-07] MEDS: 0.9% Normal Saline 1,000 ML 150 ML IV (04:00)
[2019-06-07] MEDS: Levothyroxine 25 MCG TABLET PO (05:57)
[2019-06-07] MEDS: Levothyroxine 100 MCG Tablet 200 MCG PO (05:57)
--- NOTE | 2019-06-07 07:26 | PCM.PN.PUL ---
Patient Problems: Active and Suspected Problems Lactic acidosis (Acute) Subjective: The patient was seen and examined at the bedside this morning. Events from the last 24 hours have been reviewed. The patient is currently afebrile, hemodynamically stable and maintaining appropriate oxygen saturations on room air. The patient does report feeling quite well this morning. She has been ambulatory without any significant shortness of breath. Objective: The patient's most recent lab work, culture data and imaging studies have all been personally reviewed. Strep and urine Legionella antigens were both negative. Respiratory viral panel was negative. Sputum culture appears to be normal respiratory klaus. Blood cultures have been unrevealing to date. - Physical Exam General: Alert, Oriented x3, Cooperative, No apparent distress HEENT: Atraumatic, PERRLA, Normocephalic Oral: No Gingival or Mucosal Lesions/ Ulcerations Neck: Supple, No Nodes, Trachea Midline Lungs: Normal air movement, Rales Cardiovascular: Regular rate, Regular Rhythm, Normal S1, Normal S2, No murmurs Abdomen: Bowel Sounds Present, Soft, Non Tender, Obese Extremities: No clubbing, No cyanosis, No edema Skin: No breakdown Musculoskeletal: No Tenderness to Palpation of Joints or Extremities, No Muscle Wasting Lymphatic: No Cervical, Supraclavicular, or Inguinal Adenopathy Neurological: Cranial nerves II-XII grossly intact, Neuro grossly intact Psych/Mental Status: Alert and oriented to time, place, person, mood and affect Vital Signs Temp Pulse Resp BP Pulse Ox 97.4 F L 86 16 144/78 H 98 06/07/19 02:10 06/07/19 02:50 06/07/19 02:28 06/07/19 02:10 06/07/19 02:15 Oxygen Flow Rate (L/min) 5 Oxygen Delivery Method Room Air Weight: 257 lb 0.944 oz Body Mass Index (BMI) 41.1 Intake and Output for Last 24 Hours 06/05/19 06/06/19 06/07/19 23:59 23:59 23:59 Intake Total 3577 / 3577 1010 / 1010 Balance 3577 / 3577 1010 / 1010 Microbiology Past 72 Hours 06/06/19 08:50 Gram Stain - Final Sputum, Expectorated/Coughed 06/06/19 09:40 Respiratory Panel (PCR) - Final Mucosa - Nasopharyngeal 07/15/19 06:40 Streptococcus pneumoniae Antigen (M - Final Urine, Clean Catch 06/06/19 06:40 Legionella Antigen - Final Urine, Clean Catch Laboratory Tests Past 24 Hrs 06/06/19 06/06/19 06/06/19 02:34 08:06 09:50 PT Cancelled INR Cancelled Lactic Acid 2.6 H MRSA (PCR) Negative 06/06/19 11:10 PT 13.4 INR 1.0 Lactic Acid MRSA (PCR) Clinical Impression(s) from Imaging Studies Chest CTA 06/06/19 02:31 IMPRESSION: 1. No CTA demonstrated pulmonary embolism or arterial dissection. 2. Extensive right-sided airspace consolidation as well as left upper lobe airspace disease suggesting pneumonia, sequela of aspiration pneumonitis or pulmonary hemorrhage. Electronically Signed: Alayna Mathew MD at 3:53 EDT , Service support , Medical Necessity - Tobacco Use Smoking Status: Never smoker Tobacco Use: Non-smoker Assessment/Plan All Active Problems Lactic acidosis (Acute) Community acquired pneumonia (Acute) Severe sepsis (Acute) Acute respiratory failure with hypoxia (Acute) RECOMMENDATIONS: 1. Continue empiric antimicrobials. Recommend a total 7-day treatment course. Transition from IV to p.o. antibiotic. 2. Encourage incentive spirometer use and mobilize patient as tolerated. 3. Perform walking oximetry study prior to consideration for discharge from the hospital. 4. Stop continuous supplemental IV fluids. 5. Recommend follow-up chest imaging in approximately 6 to 8 weeks, along with outpatient pulmonary follow-up. IMPRESSIONS: 1. Severe sepsis The patient does appear to have required nonrebreather supplemental oxygen upon arrival to the emergency department due to profound hypoxemia. Subsequent chest imaging did reveal the presence of multifocal airspace disease, most pronounced throughout the right hemithorax. While there was some initial report of hemoptysis, upon my discussion with the patient, she only reported the presence of pink/frothy sputum. Overall, the patient feels much clinically improved since her admission. I agree with continuing empiric antibiotics over concerns for community-acquired pneumonia. Infectious work-up, however, has been unrevealing to date. The patient has no history of obstructive lung disease. Once the patient has completed her antibiotic treatment course, I would recommend repeat chest imaging in approximately 6 to 8 weeks to document resolution of the infiltrates. 2. Obesity/hypothyroidism/hypertension Complicates care, management, recovery and prognosis. Continue home medications as indicated. This note was generated with [employer] software. It may contain incorrect words, spelling, and punctuation that were not noted in checking the note before signing. Code Visit Inpatient E&M: 86665 Subs Hosp L2
[2019-06-07] MEDS: Atenolol 25 MG Tablet PO (08:11)
--- NOTE | 2019-06-07 15:28 | PCM.DC ---
- Discharge Diagnoses Current Active Problems: Current Active and Chronic Problems Community acquired pneumonia (Acute) Hypoxia (Acute) Severe sepsis (Acute) Hypertension (Chronic) Hypothyroidism (Chronic) Acute respiratory failure with hypoxia (Acute) Thyroid mass (Chronic) You will use the following diet at home:: No restrictions, Other - It is a good idea to take a probiotic or eat a carton of yogurt daily while on antibiotics Your food should be the consistency of: Regular Your liquids should be the consistency of: Regular/Thin Discharge Activity: - - Gradually increase activity as tolerated.....remember that you have been ill for 2 to 3 weeks and you have pneumonia with a markedly decreased oxygen when you came into the hospital. You are going to need plenty of rest. Be careful not to overdo Call your doctor if you observe: Fever of 101 or Higher, Dizziness, Chest pain, - - Call your PCP if severe diarrhea ( > 5 stools a day), painful sores in the mouth, painful swallowing, rash or itching. Taking a probiotic such as Lactobacillus or Kefir can help with loose stools while taking antibiotics. Additional Instructions: You will need a repeat chest x-ray in 6 to 8 weeks to document complete clearing of the pneumonia. Make sure to finish all of the antibiotic even if you feel better prior to 1 week. Allergies/Adverse Reactions: Allergies codeine Allergy (Verified 06/06/19 02:27) Other Medications to take at Discharge Levothyroxine Sodium 200 mcg PO DAILY 09/29/13 Atenolol [Tenormin] 25 mg PO DAILY #30 tablet 08/04/18 Levothyroxine [Synthroid] 25 mcg PO MOTUWETHFRSA 06/06/19 Levofloxacin [Levaquin] 750 mg PO DAILY #6 tab 06/07/19 The following prescriptions were given: Levofloxacin [Levaquin] 750 mg PO DAILY #6 tab Transmission Status: Pending to [facility]/pharmacy #[id number] Primary Care Physician: Rosa Elena Chin MD [Primary Care Provider] - Please follow up with your Primary Care Physician in: 5-7 days Test Results: Test results from this visit will be discussed in further detail at your follow-up appointment, if applicable. Proposed Discharge Date: 06/07/19
--- NOTE | 2019-06-07 15:35 | DS.PCM_ITS ---
Discharge Date and Diagnosis - Problem List Patient Problems: Active and Suspected Problems Lactic acidosis (Acute) Date of Admission: 06/06/19 Date of Discharge: 06/07/19 - Primary Discharge Diagnosis Active and Suspected Problems Severe sepsis (Acute) Acute respiratory failure with hypoxia (Acute) Community acquired pneumonia (Acute) Lactic acidosis (Acute) - Secondary Discharge Diagnosis Chronic Problems Morbid obesity with BMI of 40.0-44.9, adult (Chronic) Hypertension (Chronic) Hypothyroidism (Chronic) Thyroid mass (Chronic) Hospital Course and Treatment Imaging Results: Clinical Impression(s) from Imaging Studies Chest CTA 06/06/19 02:31 IMPRESSION: 1. No CTA demonstrated pulmonary embolism or arterial dissection. 2. Extensive right-sided airspace consolidation as well as left upper lobe airspace disease suggesting pneumonia, sequela of aspiration pneumonitis or pulmonary hemorrhage. Electronically Signed: Alayna Mathew MD at 3:53 EDT , Service support , Microbiology 06/06/19 08:50 Sputum, Expectorated/Coughed Gram Stain - Final 06/06/19 08:50 Sputum, Expectorated/Coughed Respiratory Culture - Preliminary Appears to be normal respiratory klaus. Further studies to follow. 06/06/19 09:40 Mucosa - Nasopharyngeal Respiratory Panel (PCR) - Final 06/06/19 06:40 Urine, Clean Catch Streptococcus pneumoniae Antigen (M - Final 06/06/19 06:40 Urine, Clean Catch Legionella Antigen - Final Dr. Alexandro Carrasco-pulmonary medicine Operations: None Procedures: None Summary of Care Provided: The patient is a 48-year-old female with a past medical history of hypothyroidism (with thyroid mass, scheduled for surgery next month), hypertension and obesity who presented to the emergency room at [facility] on 06/06/2019 complaining of shortness of breath and cough for the preceding 2 weeks. She had been seen at an urgent care 1 week prior to coming to the emergency department and had a chest x-ray that did not show pneumonia. She denied fever or chills. She had been coughing up pink frothy sputum. Pulse ox on room air in the emergency room was 73%. Pulse ox was 85% on a 6 L nasal cannula. She was transitioned to a nonrebreather and the pulse ox was 98%. Lab in the emergency room showed white blood cell count of 5.5 with an unremarkable differential. Hemoglobin and platelets were within normal limits. An ABG done on a nonrebreather revealed a pH of 7.31, PCO2 of 37.8 and PO2 of 96. CMP showed a BUN of 22 with a creatinine of 0.83. Lactic acid was 3.3 and a random blood sugar was 208. LFTs were unremarkable. Streptococcal and Legionella antigens in the urine were negative. CTA of the chest showed no pulmonary embolism or arterial dissection. There was extensive right-sided airspace consolidation as well as left upper lobe airspace disease suggesting pneumonia. She was admitted to a monitored bed on PCU with a diagnosis of community-acquired pneumonia and started on Levaquin 750 mg every 24 hours, [id number] aerosolized bronchodilators and IV fluids. Consultation was ordered with Dr. Alexandro Carrasco. Legionella and streptococcal antigens in the urine were negative. The respiratory panel was negative. The sputum Gram stain showed 3+ white blood cells with 1+ epithelial cells. Preliminary culture report appears to be normal respiratory klaus. On 06/07/2019 she felt much better and her pulse ox on room air was 97% at rest and 94% with ambulation. She was discharged home with a prescription for Levaquin 750 mg and will complete 7 days of treatment. She will need a follow-up chest x-ray in 6-8 weeks to document clearing of the PNA. She will follow-up with Dr. Ruba Chin in 5 to 7 days. Final on the sputum culture is still pending at the time of DC. PHYSICAL EXAM: GENERAL: alert, oriented X 3, Cooperative, NAD ORAL: moist mucosa, no mucosal lesions NECK: No JVD, supple, trachea midline LUNGS: rales, no wheezing, not tachypneic, no conversational dyspnea.....crackles are significantly less than yesterday. HEART: RRR, Normal S1 and S2, no rub, no gallop ABDOMEN: soft, NT, ND, BS present, no guarding with palpation EXTREMITIES: no edema, no cyanosis, no calf tenderness SKIN: No rashes, no breakdown NEUROLOGIC: no focal neurologic deficits PSYCH: appropriate, normal affect, pleasant This note was generated with [employer] software. It may contain incorrect words, spelling, and punctuation that were not noted in checking the note before signing. Patient Problems: Active and Suspected Problems Lactic acidosis (Acute) - Physical Exam Vital Signs Temp Pulse Resp BP Pulse Ox 97.5 F L 75 18 127/74 H 94 06/07/19 14:00 06/07/19 14:00 06/07/19 14:00 06/07/19 14:00 06/07/19 14:39 Oxygen Flow Rate (L/min) 5 Oxygen Delivery Method Room Air Weight: 257 lb 0.944 oz Body Mass Index (BMI) 41.1 Intake and Output for Last 24 Hours 06/05/19 06/06/19 06/07/19 23:59 23:59 23:59 Intake Total 3577 / 3577 1561 / 1561 Balance 3577 / 3577 1561 / 1561 Microbiology Past 72 Hours 06/06/19 08:50 Gram Stain - Final Sputum, Expectorated/Coughed Respiratory Culture - Preliminary Appears to be normal respiratory klaus. Further studies to follow. 06/06/19 09:40 Respiratory Panel (PCR) - Final Mucosa - Nasopharyngeal 06/06/19 06:40 Streptococcus pneumoniae Antigen (M - Final Urine, Clean Catch 06/06/19 06:40 Legionella Antigen - Final Urine, Clean Catch Discharge Activity: - - Gradually increase activity as tolerated.....remember that you have been ill for 2 to 3 weeks and you have pneumonia with a markedly decreased oxygen when you came into the hospital. You are going to need plenty of rest. Be careful not to overdo Call your doctor if you observe: Fever of 101 or Higher, Dizziness, Chest pain, - - Call your PCP if severe diarrhea ( > 5 stools a day), painful sores in the mouth, painful swallowing, rash or itching. Taking a probiotic such as Lactobacillus or Kefir can help with loose stools while taking antibiotics. Home Medications: Medications to take at Discharge Levothyroxine Sodium 200 mcg PO DAILY 09/29/13 Atenolol [Tenormin] 25 mg PO DAILY #30 tablet 08/04/18 Levothyroxine [Synthroid] 25 mcg PO MOTUWETHFRSA 06/06/19 Levofloxacin [Levaquin] 750 mg PO DAILY #6 tab 06/07/19 Following Prescrptions Were Given to Patient: Levofloxacin [Levaquin] 750 mg PO DAILY #6 tab Transmission Status: Received by [facility]/pharmacy #[id number] Primary Care Physician: Rosa Elena Chin MD [Primary Care Provider] - Please follow up with your Primary Care Physician in: 5-7 days Disposition: Home Minutes spent on discharge:: 30 Patient Condition:: Good Medical Necessity - Tobacco Use Smoking Status: Never smoker Tobacco Use: Non-smoker Meaningful Use Info Meaningful Use Diagnoses (Choose all that apply): None applicable Code Visit Inpatient E&M: 60470 Disch Hosp
== END 2019-06-07 16:40 | disposition home or self-care (01) | DRG 720 ==
LOC: ED 04:40 → PCU 04:57
PROVIDERS: Internal Medicine Critical Care Medicine; Admitting Provider Internal Medicine; Emergency Provider Emergency Medicine; Family Provider Internal Medicine; PCP Internal Medicine; Visit Provider Internal Medicine
DX: A41.9 Sepsis, unspecified organism (principal); J96.01 Acute respiratory failure with hypoxia; E87.2 Acidosis; J18.9 Pneumonia, unspecified organism; R04.2 Hemoptysis; E66.01 Morbid (severe) obesity due to excess calories; R65.20 Severe sepsis without septic shock; Z68.41 Body mass index [BMI] 40.0-44.9, adult; I10 Essential (primary) hypertension; E03.9 Hypothyroidism, unspecified; E07.9 Disorder of thyroid, unspecified
CPT/HCPCS: 36415; 36600; 71275; 80053; 82803; 83605; 83880; 84484; 85025; 85610; 87040; 87070; 87205; 87449; 87633; 87641; 93005; 94640; 94762; 97161; 97166; 97802; 99285; J7030; J7040; Q9967; A4216

== ENCOUNTER 2019-06-14 10:40 | Emergency (ER) | payer MEDICAID, SELFPAY ==
[2019-06-06 06:12] VITALS: BMI 41.1
[2019-06-14 10:41] VITALS: BP 187/105; PULSE 77; RESP 20; TEMP 37; O2SAT 98; BMI 39.5
--- NOTE | 2019-06-14 10:55 | CT_ITS ---
STUDY: CT SOFT TISSUE NECK WITHOUT CONTRAST REASON FOR EXAM: Female, 48 years old. Difficulty breathing, thyroid enlargement RADIATION DOSAGE (If Supplied By Facility): CTDIvol = ( 17.08 ) mGy, DLP = ( 477.08 ) mGycm TECHNIQUE: The patient was scanned in a multi-detector CT scanner. High resolution transaxial imaging was performed without the administration of intravenous contrast material. Sagittal and coronal images were reconstructed. Individualized dose optimization techniques were used for this CT. COMPARISON: None. FINDINGS: There is significant thyroidal enlargement. The right lobe of the thyroid measures approximately 6.2 x 5.5 x 9.6 cm. There is deviation of the trachea to the left by the enlarged right lobe of the thyroid and significant narrowing of the trachea best seen on axial images 14 through 20 and coronal recon image 56. The transverse dimension of the airway is only 5 mm at this level. Normal bilateral parotid glands. Normal bilateral tank tester spaces. Normal bilateral parapharyngeal spaces. Normal bilateral carotid spaces. Normal bilateral sublingual and submandibular glands and spaces. Normal visualized nasopharynx. Normal retropharyngeal space. Normal perivertebral space. Normal visualized bilateral faucial tonsils. The visualized tongue, tongue base and oropharynx are normal. The visualized cervical lymph nodes (levels I-) are within normal size limits, and maintain normal morphology. There is no demonstrated solid or cystic mass lesion. Normal epiglottis, bilateral vallecula and hypopharynx. The pre-epiglottic and paraglottic adipose spaces are normal. Normal visualized bilateral piriform sinuses, aryepiglottic folds, vocal cords, and arytenoid-cricoid articulations. Normal subglottic trachea. Normal visualized pulmonary apices. Normal visualized paranasal sinuses. Normal visualized cervical spine. CT/Soft Tissue Neck without Contr IMPRESSION: Significant abnormal enlargement of the right lobe of the thyroid measuring approximately 6.2 x 5.5 x 9.6 in meters. The thyroid is displacing the airway to the left and narrowing the trachea to approximately 5 mm in transverse dimension. No CT evidence of tracheomalacia No suspicious adenopathy or low-density fluid collection. Electronically Signed: Alexis Houston MD at 12:03 EDT , Service support ,
--- NOTE | 2019-06-14 10:57 | ED.VIS.GEN ---
History of Present Illness Chief Complaint: Shortness of Breath Informant: Patient Onset: Days Context: Sudden Onset Timing: Continuous Quality: Shortness of breath Location: Respiratory Current Severity: Mild Maximum Severity: Moderate Worsened by: Strenuous activity Relieved by: Nothing Associated Symptoms: Recent admission for pneumonia Narrative: Patient is a middle-age woman who was recently admitted for pneumonia with sepsis. She completed her course of antibiotics. She has been using her inhaler. She reports her shortness of breath has not improved. Patient denies fever, chills night sweats. Patient denies leg pain, discoloration and states swelling is improved since discharge to home last Thursday. She denies rhinorrhea, congestion postnasal drainage. She denies sore throat. Patient had difficulty lying flat because of difficulty breathing. She has had difficulty swallowing solids for 6 to 8 weeks. Her voice is a little more harsh over the past 1 to 2 months. Patient has not been tested for obstructive sleep apnea. Prior similar symptoms: Yes Recent Illness/Hospitalization: Yes - Past Medical History (1) Community acquired pneumonia Status: Acute (2) Hypertension Status: Chronic (3) Hypothyroidism Status: Chronic (4) Morbid obesity with BMI of 40.0-44.9, adult Status: Chronic (5) Thyroid mass Status: Chronic Past Medical History - Allergies and Home Meds Allergies/Adverse Reactions: Allergies codeine Allergy (Verified 06/06/19 02:27) Other Primary Care Physician: Rosa Elena Chin MD [Primary Care Provider] - Prior records reviewed: Yes Surgical History: - - status post bilateral tubal ligation Lives: Alone Smoking Status: Never smoker Alcohol: None Drugs: None - Family History Maternal Family History: Reports: Heart Disease - ID at 38yrs Paternal Family History: Reports: Diabetes Review of Systems General: Denies: Chills, Fever, Sweats Eyes: Denies: Visual changes - bilaterally, Blurred Vision - bilaterally, Diplopia ENT: Reports: - - Please read narrative. Denies: Bilateral ear pain, Rhinorrhea, Sore throat Cardiovascular: Denies: Chest pain, Palpitations Respiratory: Reports: Dyspnea, Dyspnea on exertion - With significant exertion, Orthopnea. Denies: Sputum, Paroxysmal nocturnal dyspnea Gastrointestinal: Denies: Abdominal pain, Nausea, Vomiting, Diarrhea, Melena, Hematochezia Genitourinary: Denies: Dysuria, Hematuria, Frequency Musculoskeletal: Denies: Myalgias, Arthralgias, Neck pain, Back pain, Swelling, Extremity Pain, -, - Skin: Denies: Rash Neurological: Denies: Headache, Weakness, Parasthesia, Numbness Allergy: Denies: Uticaria, Swelling of the mouth, Swelling of the tongue Physical Exam Vital Signs/Narrative: Vital Signs Temp Pulse Resp BP Pulse Ox 06/14/19 10:41 98.6 F 77 20 H 187/105 H 98 Inital Vital Signs reviewed: Yes General: Well nourished, Well developed, No Acute Distress Head: Normocephalic, Atraumatic Eyes: Perrl, EOMI ENT: Moist mucous membranes, No rhinorrhea Neck: Supple, Nontender, No lymphadenopathy, No JVD, - - Thyroid is very large and palpable. Uncertain if the trachea is deviated. Patient has inspiratory stridor question of mild expiratory stridor. There is audible stridor noted. Cardiovascular: Regular rate, Regular rhythm, No murmurs, Normal S1, Normal S2 Respiratory: No distress, CTA bilaterally, Chest nontender. Negative for: Rales, Rhonchi, Wheezing Abdomen: Soft, Nontender, Nondistended, Normal bowel sounds Back: Nontender, Normal Inspection Extremities: Nontender, No edema Skin: Normal color, No rash Neurological: Alert, Oriented x3, Cranial nerves II-XII grossly intact, Normal Strength, Normal Sensation Psychological: Normal affect, Normal Mood Diagnostic/Tx/Re-eval Chest X-Ray - ED: - - Of the neck was reviewed by me. The trachea is compressed down to 4.3 mm. This would explain patient's inspiratory stridor. In light of this finding IV was established. Baseline blood work was obtained. Impressions Soft Tissue Neck CT 06/14/19 10:55 IMPRESSION: Significant abnormal enlargement of the right lobe of the thyroid measuring approximately 6.2 x 5.5 x 9.6 in meters. The thyroid is displacing the airway to the left and narrowing the trachea to approximately 5 mm in transverse dimension. No CT evidence of tracheomalacia No suspicious adenopathy or low-density fluid collection. Electronically Signed: Alexis Houston MD at 12:03 EDT , Service support , 06/14/19 10:55 CT Neck [Soft Tissue Neck without Contr] [CT] Stat Laboratory Results 06/14/19 06/14/19 11:59 11:59 WBC 4.0 L RBC 4.06 L Hgb 12.3 Hct 35.2 L MCV 86.7 MCH 30.3 MCHC 34.9 RDW Std Deviation 46.8 H RDW Coeff of Kvng 14.6 Plt Count 274 MPV 9.2 Immature Gran % (Auto) 0.300 Neut % (Auto) 70.6 H Lymph % (Auto) 19.4 Robertson % (Auto) 7.6 Eos % (Auto) 1.3 Baso % (Auto) 0.8 Absolute Neuts (auto) 2.8 Absolute Lymphs (auto) 0.77 L Absolute Nucleated RBC 0.00 Nucleated RBC % 0 Sodium 143 Potassium 2.8 L Chloride 110 H Carbon Dioxide 29.0 Anion Gap 4 L BUN 13 Creatinine 0.60 Estim Creat Clear Calc 106.18 Est GFR (MDRD) Af Amer 138 Est GFR (MDRD) Non-Af 114 BUN/Creatinine Ratio 21.8 H Glucose 88 Calcium 9.9 - Medical Decision Making Confirmed with radiologist that CT of the neck without contrast would delineate anatomy and determine if the thyroid is compromising her airway. With history of difficulty swallowing, difficulty lying flat and change in voice over the past 1 to 2 months suspect her dyspnea is secondary to compression of airway and not a respiratory etiology. In light of CT findings IV was established. Patient was made n.p.o. Baseline blood work was obtained. Contacted [facility] transfer line since she is scheduled to see a surgeon July 12 at [facility]. Spoke with the transfer nurse. She states she will call back after speaking with ICU, general surgery and ENT. I was informed at 1330 by Norah of the transfer nurse for [facility] that they would not be able to accommodate her. I spoke with Salima the transfer for coordinator at [facility] that she will contact the SICU attending and call me back regarding transfer for Mrs. Chris. Critical transport to [facility]. Spoke with Dr. Christianson who accepted patient. Will need to speak with the SICU doctor as well. Plan is to OR for emergent intervention - Critical Care Time Critical care time (excluding procedures): 30-74 minutes, Discussing w/Patient &/or Family/Change Control Analyst, Discussing w/Consultants, Arranging Admission or Transfer - CC time 34 minutes. ED Disposition - Plan for ED Patient: Disposition: [facility] - Main Diagnosis: Biphasic stridor, Compression of trachea, Thyroid mass Referrals: Rosa Elena Chin MD [Primary Care Provider] -
--- NOTE | 2019-06-14 11:49 | NURSING ---
CALLED [facility], TALKED TO BRIONNA. WAIT TIME IS ABOUT [address] CARROLL TALKING TO TRANSFER LINE
[2019-06-14 12:03] LABS: Absolute Lymphocyte Count 0.77 X10^3/uL (0.83-4.51); Absolute Neutrophil Count 2.8 X10^3/uL (2.0-7.7); Basophil# 0.03 X10^3/uL; Basophil% 0.8 % (0-1); Eosinophil# 0.05 X10^3/uL; Eosinophils% 1.3 % (0-5); Hematocrit 35.2 % (37-47); Hemoglobin 12.3 g/dL (12.0-15.0); Lymphocyte # 0.77 X10^3/ul (4.0); Lymphocyte % 19.4 % (19-41); Mean Corp Hgb Conc 34.9 g/dL (32-36); Mean Corpuscular Hgb 30.3 pg (27.0-32.0); Mean Corpuscular Volume 86.7 fL (81-99); Mean Platelet Vol. 9.2 fl (6.2-12.0); Monocyte% 7.6 % (0-10); NRBC Flagged by Analyzer 0 % (0-5); Neutrophil % 70.6 % (47-70); Platelet Count 274 K/mm3 (150-450); RBC Distribution Width CV 14.6 % (11.6-14.6); RBC Distribution Width SD 46.8 fl (35.1-43.9); Red Blood Count 4.06 M/mm3 (4.2-5.4)
[2019-06-14 12:14] LABS: Anion Gap 4 (5-15); BUN 13 mg/dL (7-18); BUN/Creat Ratio 21.8 RATIO (10-20); Calcium,Total 9.9 mg/dL (8.5-10.1); Chloride 110 mmol/L (98-107); EST Glomerular Filtration Rate 114 mL/min (>60); Est Glom Filt Rate - Afr Amer 138 mL/min (>60); Estimated Creatinine Clearance 106.18 ml/min; Glucose 88 mg/dL (74-106); Potassium 2.8 mmol/L (3.5-5.1); Sodium Level 143 mmol/L (136-145)
[2019-06-14 12:41] VITALS: RESP 20
--- NOTE | 2019-06-14 12:55 | NURSING ---
[facility] CALLED. WAITING ON SURGEON TO CALL BACK
--- NOTE | 2019-06-14 13:28 | NURSING ---
[facility] CALLED. PATIENT WILL NEED TRANSFERRED TO [facility] PER HER SURGEON
--- NOTE | 2019-06-14 14:08 | NURSING ---
DR HAINES, [facility], FOR DR CARROLL
[2019-06-14] MEDS: LORazepam 2 MG/ML Syringe 0.5 MG IV (14:31)
--- NOTE | 2019-06-14 14:42 | NURSING ---
1421 [facility] CALLED. PATIENT BEING FLOWN
--- NOTE | 2019-06-14 14:53 | EKG12_ITS ---
Test Reason : PRE OP Blood Pressure : / mmHG Vent. Rate : 071 BPM Atrial Rate : 071 BPM P-R Int : 190 ms QRS Dur : 156 ms QT Int : 462 ms P-R-T Axes : 046 085 023 degrees QTc Int : 502 ms Normal sinus rhythm Right bundle branch block Abnormal ECG Confirmed by NABIL SILVA ([id number]), publication editor RHYS ALEJO ([id number]) on 06/16/2019 10:14:09 AM Referred By: CARLY Confirmed By:NABIL SILVA
--- NOTE | 2019-06-14 14:58 | NURSING ---
G53 BED 10 NURSE TO NURSE [phone] THEY ARE SENDING THEIR CHOPPER. ETA IS 15 MIN FROM 15
[2019-06-14 15:36] VITALS: RESP 18
== END 2019-06-14 15:37 | disposition short-term general hospital (02) ==
PROVIDERS: Emergency Provider Emergency Medicine; Family Provider Internal Medicine; PCP Internal Medicine
DX: R06.1 Stridor (principal); J39.8 Other specified diseases of upper respiratory tract; E07.89 Other specified disorders of thyroid; I45.10 Unspecified right bundle-branch block; I10 Essential (primary) hypertension; E03.9 Hypothyroidism, unspecified; E66.01 Morbid (severe) obesity due to excess calories; Z68.41 Body mass index [BMI] 40.0-44.9, adult; Z87.01 Personal history of pneumonia (recurrent); Z86.19 Personal history of other infectious and parasitic diseases; Z79.899 Other long term (current) drug therapy
CPT/HCPCS: 70490; 80048; 85025; 93005; 96374; 99284; A4216

== ENCOUNTER → 2019-07-12 | Outpatient (CLI) | payer MEDICAID, SELFPAY ==
[2019-07-05 10:36] VITALS: BMI 38.8
[2019-07-07 14:23] VITALS: BMI 38.8
--- NOTE | 2019-07-12 13:50 | ECHODONC_ITS ---
Reason For Study: BASELINE/ PRE-CHEMOTHERAPY Procedure This was a 2D Doppler, Color Flow transthoracic echocardiogram. Myocardial strain analysis was performed in this exam to aid in the assessment of cardiac function. Exam performed in department. Left Ventricle Normal LV size. Left ventricular systolic function is normal. The estimated ejection fraction is 65 %. Stage 1 diastolic dysfunction. No regional wall motion abnormalities noted. Right Ventricle Normal RV size. Normal systolic function. Atria The left atrium is mildly enlarged. Normal right atrium. Mitral Valve Normal mitral valve. Mild (1+) mitral valve insufficiency. Tricuspid Valve Normal tricuspid valve. Mild tricuspid valve insufficiency. Pulmonary artery systolic pressure is 34 mmHg. Aortic Valve Normal aortic valve. Mild (1+) aortic valve insufficiency. Pulmonic Valve Normal pulmonic valve. Great Vessels Normal aortic root. The pulmonary artery is normal size. Normal inferior vena cava. Pericardium/Pleural No pericardial effusion. MMode/2D Measurements & Calculations LVIDd: 5.3 cm IVSd: 0.97 cm Ao root diam: 3.6 cm LVIDs: 3.7 cm LVPWd: 1.0 cm RVDd: 3.2 cm FS: 30.4 % LAV(MOD-bp): 87.9 ml LA A4 area: 23.5 cm2 LA dimension(2D): 4.4 cm LAV(MOD-bp) Indexed: 40.8 ml/m2 LAV(MOD-sp2): 87.6 ml LAV(MOD-sp4): 77.4 ml RA A4 area: 14.7 cm2 Time Measurements MV dec time: 0.29 sec Doppler Measurements & Calculations MV E max jorge: 95.5 cm/sec Lat Peak E' Jorge: 8.9 cm/sec Med Peak E' Jorge: 5.3 cm/sec MV A max jorge: 123.0 cm/sec E/E' lat: 10.7 E/E' med: 18.1 MV E/A: 0.78 Ao V2 max: 178.1 cm/sec AI max jorge: 468.9 cm/sec LV V1 max: 104.9 cm/sec Ao max P.7 mmHg AI max P.0 mmHg LV V1 max P.4 mmHg AI dec slope: 287.0 cm/sec2 AI P1/2t: 478.5 msec TR max jorge: 271.0 cm/sec TR max P.6 mmHg Interpretation Summary Normal LV size. Left ventricular systolic function is normal. The estimated ejection fraction is 65 %. Stage 1 diastolic dysfunction. Mild (1+) aortic valve insufficiency. Mild (1+) mitral valve insufficiency. The global longitudinal strain is normal. The global longitudinal strain = -21.4 % (normal). Ordering Physician: Honorio Waite Referring Physician: ANNIE MARTINEZ Performed By: Regla Sanchez, CODY, RVT
== END | disposition home or self-care (01) ==
LOC: CVS 13:49
PROVIDERS: Family Provider Internal Medicine; PCP Internal Medicine; Referring Provider Internal Medicine Hematology & Oncology; Visit Provider Internal Medicine Hematology & Oncology
DX: C83.30 Diffuse large B-cell lymphoma, unspecified site (principal); Z79.899 Other long term (current) drug therapy
CPT/HCPCS: 0399T; 93306

== ENCOUNTER 2019-07-14 08:27 | Day surgery (SDC) | payer MEDICAID, SELFPAY ==
[2019-07-07 13:44] VITALS: BMI 38.8
[2019-07-07 14:23] VITALS: BMI 38.8
--- NOTE | 2019-07-08 07:45 | HP_ITS ---
Intake Vital Signs 07/07/19 Body Mass Index (BMI) 38.8 07/07/19 Height 5 ft 5.5 in 07/07/19 Weight: 238 lb 07/07/19 Body Mass Index (BMI) 38.9 07/07/19 Blood Pressure 119/77 07/07/19 Blood Pressure Location Rt brachial 07/07/19 Blood Pressure Position Sitting 07/07/19 Respiratory Rate 18 Intake Visit Reasons: Port Placement Chief Complaint: Lymphoma Home Office Claims Examiner Required: No Is patient in pain?: No Allergies codeine Adverse Reaction (Severe, Verified 07/07/19 14:20) Vomiting Medications Levothyroxine Sodium 200 mcg PO DAILY 09/29/13 [History Confirmed 07/07/19] Atenolol [Tenormin] 25 mg PO DAILY #30 tab 08/04/18 [Rx Confirmed 07/07/19] Levothyroxine [Synthroid] 25 mcg PO MOTUWETHFRSA 06/06/19 [History Confirmed 07/07/19] Calcium Carbonate/Vitamin D3 [Os-Horacio 500+D3 Caplet] 1 ea PO TID 07/05/19 [History Confirmed 07/07/19] Ergocalciferol [Vitamin D] 50,000 unit PO Q7D 07/05/19 [History Confirmed 07/07/19] Acyclovir 400 mg PO BID 30 Days #60 tab 07/07/19 [Rx] Allopurinol 300 mg PO DAILY 7 Days #7 tab 07/07/19 [Rx] Lidocaine/Prilocaine [Lidocaine-Prilocaine Cream] 1 applicatio TP DAILY PRN PRN 30 Days #1 tube 07/07/19 [Rx] Ondansetron [Ondansetron Odt] 8 mg PO Q8H PRN PRN 10 Days #30 tab.rapdis 07/07/19 [Rx] Prednisone 100 mg PO DAILY 21 Days #25 tab 07/07/19 [Rx] Prochlorperazine Maleate 10 mg PO Q6H PRN PRN 5 Days #30 tab 07/07/19 [Rx] Smz/Tmp Ds [Bactrim Ds] 1 tab PO DAILY 90 Days #50 tab 07/07/19 [Rx] PFSH Medical History (Updated 07/07/19 @ 16:01 by ANGEL Ramirez) Community acquired pneumonia (Acute) Severe sepsis (Acute) Hypertension (Chronic) Hypothyroidism (Chronic) Acute respiratory failure with hypoxia (Acute) Thyroid mass (Chronic) Morbid obesity with BMI of 40.0-44.9, adult (Chronic) Lactic acidosis (Acute) DLBCL (diffuse large B cell lymphoma) (Acute) Acquired hypothyroidism (Acute) Esophageal reflux (Acute) Hypercalcemia (Acute) Hypokalemia (Acute) Iron deficiency (Acute) Malaise and fatigue (Acute) Thyroid mass (Acute) Vitamin deficiency (Acute) Status post tubal ligation (Acute) Surgical History (Updated 07/07/19 @ 16:01 by Rosalia Torres NP-C) History of parathyroidectomy (Acute) History of thyroidectomy, total (Acute) History of tubal ligation (Acute) History of reversal of tubal ligation (Acute) Family History Grandmother No problems noted. Father Diabetes Mother Heart disease Lupus Social History (Updated 07/08/19 @ 07:45 by Jadiel Mcconnell MD) Smoking Status: Never smoker HPI HPI HPI: VANESSA DE LA PAZ, is a 48 F who presents to the office today for HPI HPI Surgical H&P: Yes HPI: VANESSA DE LA PAZ, is a 48 F who presents to the office today for port consult. Patient had thyroidectomy for enlarged goiter which showed B-cell lymphoma. ROS General General: Yes weight change and fatigue HEENT HEENT: Yes swollen glands Cardio Cardiovascular: No murmur, pacemaker, heart disease, atrial fibrillation, high blood pressure, heart attack, heart stent, palpitations, shortness of breat with exertion or chest pain Psych Psychiatric: No depression or anxiety Resp Respiratory: No shortness of breath, No sleep apnea, No cough, No COPD, No asthma, No emphysema, No wheezing Gastro Gastrointestinal: No abdominal pain, No nausea or vomiting, No diarrhea, No constipation, Yes blood in stool, No acid reflux, Yes hemorrhoids, No ulcers, No gallbladder problem, No black,tarry stools Ismael Hematologic: No blood thinners, Yes anemia Exam Const General: cooperative Orientation: alert, oriented x3 Resp Effort & Inspection: normal respiratory effort Auscultation: clear to auscultation bilaterally Cardio Rate: regular rate Rhythm: regular rhythm Heart Sounds: no murmurs GI Inspection: non-distended Palpation: soft, nontender Assessment & Plan Problems 1. Encounter for insertion of venous access port Z45.2 2. Diffuse large B-cell lymphoma of lymph nodes of neck C83.31 Plan Patient is requiring vascular access for chemotherapy. I discussed port placement with her. I discussed the risks including but not limited to bleeding, infection, pneumothorax, DVT. I will attempt right chest port but if this is unable to be placed due to lymphadenopathy I will place a right arm port. Patient and is in agreement and willing to proceed. Jadiel Mcconnell MD Pager: [facility] [address] [place] [address], [address] [place] [address] Office: Coding Level of Care Code Off vis,new,level 3 Diagnoses Encounter for insertion of venous access port Z45.2 Diffuse large B-cell lymphoma of lymph nodes of neck C83.31 ??Lymphoma site: neck 07/08/19 0746 <Electronically signed by Jadiel olivares MD> Date _ Jadiel Mcconnell MD I have re-examined the patient. There are no clinical changes since date of exam.
[2019-07-14] VITALS (7 sets, daily range): BP systolic 109–125; BP diastolic 73–81; PULSE 49–60; RESP 16–18; TEMP 36.3–36.7; O2SAT 94–100; BMI 38.4
[2019-07-14 09:05] LABS: Internal QC Validated? YES +Cl - CLEAR BKGD; Pregnancy, Urine Negative Negative
[2019-07-14] MEDS: Lactated Ringers 1,000 ML 100 ML IV (09:28)
[2019-07-14] MEDS: Cefazolin 2 GM in 0.9% Normal Saline 100 ML IV (10:48)
[2019-07-14] MEDS: Bupiv/Epi 0.25% 30 ML Vial (11:11)
--- NOTE | 2019-07-14 11:38 | RAD_ITS ---
STUDY: X-RAY CHEST REASON FOR EXAM: Female, 48 years old. Right Mediport placement TECHNIQUE: Single AP portable view of the chest. COMPARISON: None. FINDINGS: Right Mediport in place. Distal tip of the catheter at the level of SVC. No evidence of mediastinal shift or pneumothorax. The lungs are otherwise clear and expanded. There is no demonstrated pleural abnormality. Normal size heart. Normal mediastinum and ezequiel. Normal visualized pulmonary arteries. There is atherosclerotic tortuosity of the aortic arch and descending thoracic aorta. There are diffuse degenerative changes of the visualized thoracic spine. Normal visualized ribs, clavicles, and shoulders. There is no demonstrated abnormality of the visualized soft tissue structures of the upper abdomen. RAD/CXR for Line Placement IMPRESSION: Good position of the right MediPort. No pneumothorax on either side. Electronically Signed: Derrek Gautam MD at 12:55 EDT Tel [phone], Service support ,
--- NOTE | 2019-07-14 11:39 | OP.PCM_ITS ---
Problem List (1) Encounter for adjustment or management of vascular access device Status: Acute (2) DLBCL (diffuse large B cell lymphoma) Status: Acute Qualifiers: Report of Operation Date of Procedure: 07/14/19 Pre-Operative Diagnosis: Lymphoma need for vascular access Post-Operative Diagnosis: Same Surgery/Procedure Performed:: Ultrasound and fluoroscopy guided right chest port placement utilizing right IJ Description of Procedure: After obtaining informed consent patient was brought back to the operating room MAC anesthesia was induced and the right chest and neck were prepped in normal sterile fashion. Ultrasound was used to evaluate both IJs and the right IJ was selected. Next, using a needle, the right IJ was accessed and a guidewire was passed on into the superior vena cava under fluoroscopy guidance. A small incision was made over the puncture site and the dilator introducer was placed over the guidewire. Next this was capped and the pocket was made for the port. 1% lidocaine with epinephrine was injected in the proposed port site. An incision was made with scalpel. Electrocautery was used to make a pocket under the skin and subcutaneous tissue. Hemostasis was obtained. Next, the catheter was tunneled up to the neck incision site and placed through the introducer. The peel-away introducer was removed and the position of the catheter was confirmed on fluoroscopy. Next, the catheter was trimmed and attached to the port with the locking device. Interrupted 2-0 Vicryl sutures were used to anchor the port to the chest wall and then the port was placed inside the pocket. The pocket was then flushed with saline and the port irrigated with saline. There was good blood return and the port flushed easily. Next, heparin was injected into the port. The skin was closed with subcutaneous interrupted 3-0 Vicryl sutures and interrupted skin 3-0 nylon sutures. A single 3-0 Vicryl sutures placed under the skin at the neck incision site. Steri-Strips were placed as well as op sites. Patient tolerated procedure well, was taken to PACU in stable condition. Chest x-ray will be obtained. Grafts/Implants Used: 6 Setswana PowerPort - Admit VTE Documentation VTE Mechan Device Prophylaxis: SCD's
--- NOTE | 2019-07-14 11:40 | DCINST_ITS ---
Discharge Diet: No Restrictions - Pain medication may cause nausea. You should typically eat light foods as you take your pain medication. Discharge Activity: Return to Normal Activity, May Shower - with your bandage in place in 1-2 days after surgery. DO NOT SHOWER WHEN YOUR PORT IS ACCESSED. Call your doctor if your incision/area has: Continuous Slow Oozing, Sudden Increased Bleeding, Increased Pain/ Swelling, Increased Redness Call your doctor if you observe: Fever of 101 or Higher Remove Dressing in (days):: 3 - When you remove the bandage, leave the steri- strips intact until they fall off. Allergies/Adverse Reactions: Allergies codeine Adverse Reaction (Severe, Verified 07/11/19 08:10) Vomiting Medications to take at Discharge Levothyroxine Sodium 200 mcg PO DAILY 09/29/13 Atenolol [Tenormin] 25 mg PO DAILY #30 tab 08/04/18 Levothyroxine [Synthroid] 25 mcg PO MOTUWETHFRSA 06/06/19 Calcium Carbonate/Vitamin D3 [Os-Horacio 500+D3 Caplet] 1 ea PO TID 07/05/19 Ergocalciferol [Vitamin D] 50,000 unit PO HERNANDEZ 07/05/19 Calcium Carbonate [Tums] 500 mg PO DAILY@0800 PRN 07/11/19 Primary Care Physician: Rosa Elena Chin MD [Primary Care Provider] - Test Results: Test results from this visit will be discussed in further detail at your follow- up appointment, if applicable. Please Follow Up With: Jadiel Mcconnell MD When: Please call to schedule 1 week follow up appointment. [phone]
== END 2019-07-14 13:15 | disposition home or self-care (01) ==
LOC: SDC 08:28 → AC 08:29
PROVIDERS: Anesthesiology; Family Provider Internal Medicine; PCP Internal Medicine; Referring Provider Surgery; Visit Provider Surgery
PROC: (CPT 36561; principal; 2019-07-14 10:00)
DX: Z45.2 Encounter for adjustment and management of vascular access device (principal); C83.31 Diffuse large B-cell lymphoma, lymph nodes of head, face, and neck; E03.9 Hypothyroidism, unspecified; E66.01 Morbid (severe) obesity due to excess calories; Z68.38 Body mass index [BMI] 38.0-38.9, adult; K21.9 Gastro-esophageal reflux disease without esophagitis; I10 Essential (primary) hypertension; G25.81 Restless legs syndrome; Z86.2 Personal history of diseases of the blood and blood-forming organs and certain disorders involving the immune mechanism; Z87.01 Personal history of pneumonia (recurrent); Z86.19 Personal history of other infectious and parasitic diseases; Z79.899 Other long term (current) drug therapy
CPT/HCPCS: 36561; 71045; 77001; 81025; J7120

== ENCOUNTER → 2019-11-21 15:00 | Outpatient (CLI) | payer MEDICAID, SELFPAY ==
[2019-10-31 09:18] VITALS: BMI 38.0
[2019-11-10 10:57] VITALS: BMI 38.7
--- NOTE | 2019-11-21 15:01 | BI_ITS ---
MAMMOGRAPHY - BILATERAL SCREENING 3-D TOMOSYNTHESIS REASON FOR EXAM: Female, 49 years old. BASELINE EXAM -- NO FAM HX -- PT HAS LYMPHOMA -JUST FINISHED CHEMO -- PT HAS PORT PERTINENT HISTORY: No significant family history. TECHNIQUE: 2-D mammograms and 3-D Tomosynthesis of the breast (s) were performed. CAD was performed. COMPARISON: This examination is interpreted without benefit of prior mammograms for review and comparison. FINDINGS: The breast composition is composed of scattered fibroglandular density. Scattered benign calcifications are seen. No dense spiculated masses or suspicious microcalcifications are identified. No architectural distortion is identified. There is no skin thickening or retraction. BI/SCREEN MAMM (CAD) W/ABDULLAHI BILAT IMPRESSION: No mammographic signs of malignancy. Routine yearly mammograms recommended. ASSESSMENT CATEGORY: BIRADS Category 1: Negative. A letter regarding these results will be sent to the patient by the facility within 30 days. FOLLOW UP RECOMMENDATION: Yearly follow up mammogram recommended. (A) Approximately 10% of breast cancers are not detected by mammography. A normal mammogram should not delay biopsy of a clinically suspicious abnormality. Electronically Signed: Lane Hassan MD at 6:54 EST , Service support ,
--- NOTE | 2019-11-21 15:35 | CT_ITS ---
STUDY: CT ABDOMEN AND PELVIS WITH CONTRAST REASON FOR EXAM: Female, 49 years old. ASSESS RESPONSE TO CHEMO -- HX-LARGE B-CELL LYMPHOMA -- LAST CHEMO 11/01/19 -- HENRI G-TUBAL and amp; RECONSTRUCTION,THYROIDECTOMY,PORT RADIATION DOSAGE (If Supplied By Facility): CTDIvol = ( 20.64 ) mGy, DLP = ( 2718.15 ) mGycm TECHNIQUE: Transaxial images were obtained from the dome of the diaphragm to the symphysis pubis without oral contrast. IV 100mL Isovue-300 was administered. Sagittal and coronal images were reconstructed. Individualized dose optimization techniques were used for this CT. COMPARISON: None. FINDINGS: The visualized lung bases are unremarkable. The visualized portions of the heart are within normal limits. Normal liver. There are multiple gallstones. Normal spleen. Normal pancreas. Normal bilateral adrenal glands. Normal right kidney. Normal left kidney. Normal visualized stomach. Normal small intestine. Normal colon. The appendix is visualized and appears normal. Appendix best seen on coronal recon images 66 through 68 Normal abdominal aorta. Normal inferior vena cava. Normal retroperitoneum. Normal urinary bladder. Uterus is enlarged and shows heterogeneity and cystic change. Findings suggest underlying fibroids though a neoplastic process cannot be excluded. There is a 3 cm left ovarian cyst. Normal abdominal wall. There are diffuse degenerative changes of the visualized lumbar spine, and pelvis. There is a levoscoliosis CT/Abdomen/Pelvis W IV Cont ONLY IMPRESSION: Enlarged heterogeneous uterus suggests underlying fibroids though a neoplastic process cannot be excluded. A recent PET scan however did not show abnormal activity within the uterus 3 cm left ovarian cyst Cholelithiasis, no CT evidence of acute cholecystitis Electronically Signed: Alexis Houston MD at 17:25 EST , Service support ,
--- NOTE | 2019-11-21 15:35 | CT_ITS ---
STUDY: CT SOFT TISSUE NECK WITH CONTRAST REASON FOR EXAM: Female, 49 years old. ASSESS RESPONSE TO CHEMO -- HX-LARGE B-CELL LYMPHOMA -- LAST CHEMO 11/01/19 -- SURG-TUBAL and amp; RECONSTRUCTION,THYROIDECTOMY,PORT RADIATION DOSAGE (If Supplied By Facility): CTDIvol = ( 20.64 ) mGy, DLP = ( 2718.15 ) mGycm TECHNIQUE: The patient was scanned in a multi-detector CT scanner. High resolution transaxial imaging was performed following intravenous administration of IV 100mL Isovue-300. Sagittal and coronal images were reconstructed. Individualized dose optimization techniques were used for this CT. COMPARISON: 12 September 2019, 14 June 2019 FINDINGS: There is thyroidectomy. Surgical bed is clear. Airway is patent. The vocal cords are normal. There is no cervical lymphadenopathy, mass or inflammatory change. Salivary glands are normal. Carotids and jugulars are patent. Cranial cervical junction and cervical spine are intact and aligned with mild spondylotic thecal sac stenosis at C6-C7. Lung apices are clear. Supraclavicular fossae are clear. There is a right internal jugular central venous catheter. CT/Soft Tissue Neck WITH Contrast IMPRESSION: No cervical lymphadenopathy. Expected appearance after thyroidectomy. Electronically Signed: Pillo Nuno, at 16:35 EST Tel , Service support ,
--- NOTE | 2019-11-21 15:35 | CT_ITS ---
STUDY: CT CHEST WITH CONTRAST REASON FOR EXAM: Female, 49 years old. ASSESS RESPONSE TO CHEMO -- HX-LARGE B-CELL LYMPHOMA -- LAST CHEMO 11/01/19 -- SURG-TUBAL and amp; RECONSTRUCTION,THYROIDECTOMY,PORT RADIATION DOSAGE (If Supplied By Facility): CTDIvol = ( 20.64 ) mGy, DLP = ( 2718.15 ) mGycm TECHNIQUE: Transaxial imaging was performed following intravenous administration of IV 100mL Isovue-300. Multiplanar coronal and sagittal images were reformatted. Individualized dose optimization techniques were used for this CT. COMPARISON: 06/06/2019 chest CTA, 09/12/2019 PET scan FINDINGS: Thyroid gland is surgically absent. Right chest port is stable. No discrete pulmonary nodule or mass identified. There is no demonstrated pleural abnormality. Normal heart and pericardium. Normal mediastinum. Normal hilar regions. Normal enhanced pulmonary arteries. Normal aorta arch and descending thoracic aorta. There are multi-level degenerative changes of the thoracic spine. Upper abdomen described on abdomen/pelvis CT report. CT/Chest WITH Contrast IMPRESSION: 1. No pulmonary nodule or mass. No intrathoracic adenopathy. Electronically Signed: Chet Orta MD ([place]) at 13:36 EST , Service support ,
== END ==
PROVIDERS: Family Provider Internal Medicine; PCP Internal Medicine; Referring Provider Internal Medicine Hematology & Oncology; Visit Provider Internal Medicine Hematology & Oncology
DX: C83.30 Diffuse large B-cell lymphoma, unspecified site (principal); Z12.31 Encounter for screening mammogram for malignant neoplasm of breast
CPT/HCPCS: 70491; 71260; 74177; 77063; 77067; Q9967

== ENCOUNTER → 2019-12-06 13:44 | Outpatient (CLI) | payer MEDICAID, SELFPAY ==
[2019-11-10 10:57] VITALS: BMI 38.7
[2019-12-08 12:08] LABS: Age Gdln ACOG Testing 30-65 (.)
[2019-12-08 14:04] LABS: HPV APTIMA, High Risk Negative (Negative); HPV Reflexed? YES, CHARGE PATIENT
== END ==
PROVIDERS: Visit Provider Advanced Practice Midwife
DX: Z12.4 Encounter for screening for malignant neoplasm of cervix (principal)
CPT/HCPCS: 87624; 88175; G0145

== ENCOUNTER → 2020-01-10 09:06 | Outpatient (CLI) | payer MEDICAID, SELFPAY ==
[2019-12-26 14:41] VITALS: BMI 39.3
[2020-01-10 09:44] LABS: T4 Free Direct 1.21 ng/dL (0.76-1.46); Thyroid Stim Hormone (TSH) 3.45 uIU/mL (0.358-3.74)
== END ==
PROVIDERS: PCP Internal Medicine; Referring Provider Internal Medicine Endocrinology, Diabetes & Metabolism; Visit Provider Internal Medicine Endocrinology, Diabetes & Metabolism
DX: E89.0 Postprocedural hypothyroidism (principal)
CPT/HCPCS: 36415; 84439; 84443

== ENCOUNTER → 2020-06-04 07:56 | Outpatient (CLI) | payer MEDICAID, SELFPAY ==
[2020-03-12 13:19] VITALS: BMI 41.2
[2020-05-08 09:51] VITALS: BMI 41.2
--- NOTE | 2020-06-04 07:57 | CT_ITS ---
STUDY: CT CHEST WITH CONTRAST REASON FOR EXAM: Female, 49 years old. F/U LYMPHOMA, POST CHEMO RADIATION DOSAGE (If Supplied By Facility): CTDIvol = ( 22.34 ) mGy, DLP = ( 693.26 ) mGycm TECHNIQUE: Transaxial imaging was performed following intravenous administration of IV 100mL Isovue-300. Multiplanar coronal and sagittal images were reformatted. Individualized dose optimization techniques were used for this CT. COMPARISON: Comparison is made with prior study dated November 21, 2019. FINDINGS: The lungs are normal. There is no demonstrated pleural abnormality. Normal heart and pericardium. Normal mediastinum. Normal hilar regions. Normal enhanced pulmonary arteries. Normal aorta arch and descending thoracic aorta. There are degenerative changes of the thoracic spine. There is no demonstrated abnormality of the visualized upper abdomen. CT/Chest WITH Contrast IMPRESSION: Stable examination. Electronically Signed: Bryan Kahn, at 12:49 EDT , Service support ,
--- NOTE | 2020-06-04 07:57 | CT_ITS ---
STUDY: CT SOFT TISSUE NECK WITH CONTRAST REASON FOR EXAM: Female, 49 years old. F/U LYMPHOMA, POST CHEMO RADIATION DOSAGE (If Supplied By Facility): CTDIvol = ( 22.34 ) mGy, DLP = ( 266.32 ) mGycm TECHNIQUE: The patient was scanned in a multi-detector CT scanner. High resolution transaxial imaging was performed following intravenous administration of IV 100mL Isovue-300. Sagittal and coronal images were reconstructed. Individualized dose optimization techniques were used for this CT. COMPARISON: Comparison is made with prior examination dated November 21, 2019. FINDINGS: Normal bilateral parotid glands. Normal bilateral balling machine operator spaces. Normal bilateral parapharyngeal spaces. Normal bilateral carotid spaces. Normal bilateral sublingual and submandibular glands and spaces. Normal visualized nasopharynx. Normal retropharyngeal space. Normal perivertebral space. Normal visualized bilateral faucial tonsils. The visualized tongue, tongue base and oropharynx are normal. The visualized cervical lymph nodes (levels I-) are within normal size limits, and maintain normal morphology. There is no demonstrated solid or cystic mass lesion. There is no abnormal contrast enhancement. Normal epiglottis, bilateral vallecula and hypopharynx. The pre-epiglottic and paraglottic adipose spaces are normal. Normal visualized bilateral piriform sinuses, aryepiglottic folds, vocal cords, and arytenoid-cricoid articulations. Normal subglottic trachea. The patient is status post thyroidectomy. Normal visualized pulmonary apices. Normal visualized paranasal sinuses. Straightening of the normal cervical lordosis. CT/Soft Tissue Neck WITH Contrast IMPRESSION: Status post thyroidectomy Electronically Signed: Bryan Kahn, at 12:36 EDT , Service support ,
--- NOTE | 2020-06-04 07:57 | CT_ITS ---
STUDY: CT ABDOMEN AND PELVIS WITH CONTRAST REASON FOR EXAM: Female, 49 years old. F/U LYMPHOMA, POST CHEMO RADIATION DOSAGE (If Supplied By Facility): CTDIvol = ( 22.34 ) mGy, DLP = ( 266.32 ) mGycm TECHNIQUE: Transaxial images were obtained from the dome of the diaphragm to the symphysis pubis without oral contrast. IV 100mL Isovue-300 was administered. Sagittal and coronal images were reconstructed. Individualized dose optimization techniques were used for this CT. COMPARISON: Comparison is made with prior study dated November 21, 2019. FINDINGS: The visualized lung bases are unremarkable. The visualized portions of the heart are within normal limits. Normal liver. There are small gallstones. Normal spleen. Normal pancreas. Normal bilateral adrenal glands. Normal right kidney. Normal left kidney. Normal visualized stomach. Normal small intestine. Normal colon. The appendix is visualized and appears normal. Normal abdominal aorta. Normal inferior vena cava. Normal retroperitoneum. Normal urinary bladder. Stable enlarged heterogeneous appearance of the uterus suggestive of a fibroid uterus. There is a 2.4 cm x 1.6 cm cyst in the left ovary. There is a stable umbilical hernia containing fat. There are mild degenerative changes of the visualized lumbar spine. Stable mild levoscoliosis. CT/Abdomen/Pelvis W IV Cont ONLY IMPRESSION: Enlarged heterogeneous appearance of the uterus suggestive of fibroid uterus. Small left ovarian cyst. Electronically Signed: Bryan Kahn, at 12:54 EDT , Service support ,
== END ==
PROVIDERS: PCP Internal Medicine; Referring Provider Internal Medicine Hematology & Oncology; Visit Provider Internal Medicine Hematology & Oncology
DX: C83.30 Diffuse large B-cell lymphoma, unspecified site (principal); C73 Malignant neoplasm of thyroid gland
CPT/HCPCS: 70491; 71260; 74177; Q9967

== ENCOUNTER → 2020-10-24 12:43 | Outpatient (CLI) | payer MEDICAID, SELFPAY ==
[2020-06-11 13:04] VITALS: BMI 42.9
--- NOTE | 2020-10-24 12:44 | CT_ITS ---
STUDY: CT SOFT TISSUE NECK WITH CONTRAST REASON FOR EXAM: Female, 50 years old. Lymphoma follow up, removed from neck and right armpit 1 year ago, chemotherapy. Hx hypertension, thyroidectomy. RADIATION DOSAGE (If Supplied By Facility): CTDIvol = ( 20.22 ) mGy, DLP = ( 2625.47 ) mGycm TECHNIQUE: The patient was scanned in a multi-detector CT scanner. High resolution transaxial imaging was performed following intravenous administration of IV 100mL Isovue-300. Sagittal and coronal images were reconstructed. Individualized dose optimization techniques were used for this CT. COMPARISON: Comparison is made with prior study dated 06/04/2020. FINDINGS: Normal bilateral parotid glands. Normal bilateral dietary aide spaces. Normal bilateral parapharyngeal spaces. Normal bilateral carotid spaces. Normal bilateral sublingual and submandibular glands and spaces. Normal visualized nasopharynx. Normal retropharyngeal space. Normal perivertebral space. Normal visualized bilateral faucial tonsils. The visualized tongue, tongue base and oropharynx are normal. The visualized cervical lymph nodes (levels I-) are within normal size limits, and maintain normal morphology. There is no demonstrated solid or cystic mass lesion. There is no abnormal contrast enhancement. Normal epiglottis, bilateral vallecula and hypopharynx. The pre-epiglottic and paraglottic adipose spaces are normal. Normal visualized bilateral piriform sinuses, aryepiglottic folds, vocal cords, and arytenoid-cricoid articulations. Normal subglottic trachea. The patient is status post thyroidectomy. Normal visualized pulmonary apices. Normal visualized paranasal sinuses. Normal visualized cervical spine. CT/Soft Tissue Neck WITH Contrast IMPRESSION: Status post thyroidectomy. No acute abnormality is seen. Electronically Signed: Bryan Kahn, at 14:14 EST , Service support ,
--- NOTE | 2020-10-24 12:44 | CT_ITS ---
STUDY: CT ABDOMEN AND PELVIS WITH CONTRAST REASON FOR EXAM: Female, 50 years old. Lymphoma follow up, removed from neck and right armpit 1 year ago, chemotherapy. Hx hypertension, thyroidectomy. RADIATION DOSAGE (If Supplied By Facility): CTDIvol = ( 20.22 ) mGy, DLP = ( 2625.47 ) mGycm TECHNIQUE: Transaxial images were obtained from the dome of the diaphragm to the symphysis pubis without oral contrast. IV 100mL Isovue-300 was administered. Sagittal and coronal images were reconstructed. Individualized dose optimization techniques were used for this CT. COMPARISON: Comparison is made with prior study dated 06/04/2020. FINDINGS: The visualized lung bases are unremarkable. The visualized portions of the heart are within normal limits. Normal liver. There are multiple small gallstones. Normal spleen. Normal pancreas. Normal bilateral adrenal glands. Normal right kidney. Normal left kidney. Normal visualized stomach. Normal small intestine. Normal colon. The appendix is visualized and appears normal. Normal abdominal aorta. Normal inferior vena cava. Normal retroperitoneum. Normal urinary bladder. Heterogeneously enlarged uterus suggestive of multiple uterine fibroids. This is unchanged. Stable 2.4 cm x 1.8 cm cyst in the left ovary. There is a small umbilical hernia containing fat. There are degenerative changes of the visualized lumbar spine. CT/Abdomen/Pelvis W IV Cont ONLY IMPRESSION: Stable examination. Enlarged fibroid uterus. Stable left ovarian cyst. Electronically Signed: Bryan Kahn, at 14:27 EST , Service support ,
--- NOTE | 2020-10-24 12:44 | CT_ITS ---
STUDY: CT CHEST WITH CONTRAST REASON FOR EXAM: Female, 50 years old. Lymphoma follow up, removed from neck and right armpit 1 year ago, chemotherapy. Hx hypertension, thyroidectomy. RADIATION DOSAGE (If Supplied By Facility): CTDIvol = ( 20.22 ) mGy, DLP = ( 2625.47 ) mGycm TECHNIQUE: Transaxial imaging was performed following intravenous administration of IV 100mL Isovue-300. Multiplanar coronal and sagittal images were reformatted. Individualized dose optimization techniques were used for this CT. COMPARISON: Comparison is made with prior study dated 06/04/2020. FINDINGS: The lungs are normal. There is no demonstrated pleural abnormality. Normal heart and pericardium. Normal mediastinum. Normal hilar regions. Normal enhanced pulmonary arteries. Normal aorta arch and descending thoracic aorta. There are multi-level degenerative changes of the thoracic spine. The patient is status post cholecystectomy. CT/Chest WITH Contrast IMPRESSION: Stable examination. No acute abnormalities. Electronically Signed: Bryan Kahn, at 13:55 EST , Service support ,
== END ==
PROVIDERS: PCP Internal Medicine; Referring Provider Internal Medicine Hematology & Oncology; Visit Provider Internal Medicine Hematology & Oncology
DX: C83.30 Diffuse large B-cell lymphoma, unspecified site (principal); C73 Malignant neoplasm of thyroid gland
CPT/HCPCS: 70491; 71260; 74177; Q9967

== ENCOUNTER → 2020-12-04 10:03 | Outpatient (CLI) | payer MEDICAID, SELFPAY ==
[2020-06-11 13:04] VITALS: BMI 42.9
--- NOTE | 2020-12-04 10:05 | BI_ITS ---
MAMMOGRAPHY - BILATERAL SCREENING REASON FOR EXAM: Female, 50 years old. Routine annual screening examination. PERTINENT HISTORY: Non-contributory. TECHNIQUE: Digital bilateral breast abdullahi (3D mammographic acquisition) in the CC and MLO projections. 2-D mediolateral oblique (MLO) and craniocaudad (CC) views of both breasts were obtained. CAD: Full Field Digital Mammography with Computer Added Detection was performed. COMPARISON: Comparison is made with prior examination dated 11/21/2019. FINDINGS: Breast Composition: There are scattered areas of fibroglandular density. There are no dominant masses or suspicious calcifications. Stable small benign appearing bilateral axillary lymph nodes. No other significant abnormalities are identified. There has been no significant change since the prior study. BI/SCREEN MAMM (CAD) W/ABDULLAHI BILAT IMPRESSION: Stable bilateral screening mammogram. Yearly follow-up mammogram recommended. (A) ASSESSMENT CATEGORY: BIRADS Category 2: Benign. A letter regarding these results will be sent to the patient by the facility within 30 days. Approximately 10% of breast cancers are not detected by mammography. A normal mammogram should not delay biopsy of a clinically suspicious abnormality. [id number] Electronically Signed: Bryan Kahn, at 12:12 EST , Service support ,
== END ==
PROVIDERS: PCP Internal Medicine; Referring Provider Internal Medicine Hematology & Oncology; Visit Provider Internal Medicine Hematology & Oncology
DX: Z12.31 Encounter for screening mammogram for malignant neoplasm of breast (principal)
CPT/HCPCS: 77063; 77067

== ENCOUNTER → 2021-05-28 07:03 | Outpatient (CLI) | payer MEDICAID, SELFPAY ==
[2021-03-06 13:37] VITALS: BMI 44.9
[2021-05-07 08:14] VITALS: BMI 44.9
--- NOTE | 2021-05-28 07:07 | CT_ITS ---
STUDY: CT SOFT TISSUE NECK WITH CONTRAST REASON FOR EXAM: Female, 50 years old. DLCBL MONITOR. History of lymphoma. Prior chemotherapy. Prior thyroidectomy. RADIATION DOSAGE (If Supplied By Facility): CTDIvol = ( 21.76 ) mGy, DLP = ( 2454.69 ) mGycm TECHNIQUE: The patient was scanned in a multi-detector CT scanner. High resolution transaxial imaging was performed following intravenous administration of IV 100mL Isovue-300. Sagittal and coronal images were reconstructed. Individualized dose optimization techniques were used for this CT. COMPARISON: Comparison is made with prior examination dated 10/24/2020. FINDINGS: Normal bilateral parotid glands. Normal bilateral phone specialist spaces. Normal bilateral parapharyngeal spaces. Normal bilateral carotid spaces. Normal bilateral sublingual and submandibular glands and spaces. Normal visualized nasopharynx. Normal retropharyngeal space. Normal perivertebral space. Normal visualized bilateral faucial tonsils. The visualized tongue, tongue base and oropharynx are normal. The visualized cervical lymph nodes (levels I-) are within normal size limits, and maintain normal morphology. There is no demonstrated solid or cystic mass lesion. There is no abnormal contrast enhancement. Normal epiglottis, bilateral vallecula and hypopharynx. The pre-epiglottic and paraglottic adipose spaces are normal. Asymmetrical thickening of the right aryepiglottic fold. Vocal cords, and arytenoid-cricoid articulations. Normal subglottic trachea. The patient is status post thyroidectomy. Normal visualized pulmonary apices. Normal visualized paranasal sinuses. Normal visualized cervical spine. CT/Soft Tissue Neck WITH Contrast IMPRESSION: Status post thyroidectomy. Asymmetrical thickening of the right aryepiglottic fold. Clinical correlation is recommended. Electronically Signed: Bryan Kahn MD at 10:27 EDT , Service support ,
--- NOTE | 2021-05-28 07:07 | CT_ITS ---
STUDY: CT CHEST, ABDOMEN T PELVIS WITH CONTRAST REASON FOR EXAM: Female, 50 years old. DLBCL MONITOR. Follow-up examination. History of lymphoma and chemotherapy. RADIATION DOSAGE (If Supplied By Facility): CTDIvol = ( 21.76 ) mGy, DLP = ( 2454.69 ) mGycm TECHNIQUE: Transaxial imaging was performed following intravenous administration of IV 100mL Isovue-300. Individualized dose optimization techniques were used for this CT. COMPARISON: Comparison is made with a prior examination dated 10/24/2020. FINDINGS: CHEST Stable small bilateral benign-appearing axillary The lungs are normal. There is no demonstrated pleural abnormality. Normal heart and pericardium. Normal mediastinum. Normal hilar regions. Normal unenhanced pulmonary arteries. Normal aorta arch and descending thoracic aorta. There are multi-level degenerative changes of the thoracic spine. Small gallstones. ABDOMEN The visualized lung bases are unremarkable. The visualized portions of the heart are within normal limits. Normal liver. Small layering gallstones are seen along the dependent wall of the gallbladder lumen. Normal spleen. Normal pancreas. Normal bilateral adrenal glands. Normal right kidney. Normal left kidney. Normal visualized stomach. Normal small intestine. Normal colon. The appendix is visualized and appears normal. Normal abdominal aorta. Normal inferior vena cava. Normal retroperitoneum. There is a small umbilical hernia containing fat. There are diffuse degenerative changes of the visualized lumbar spine. PELVIS Normal urinary bladder. Enlarged heterogeneous appearance of the uterus. This is unchanged. This most likely represents a fibroid uterus. Stable 2 cm cyst in the left ovary. Normal visualized small intestine. Normal visualized colon. There is no pelvic fluid. There is no pelvic lymphadenopathy or mass lesion. There is diffuse atherosclerotic calcification of the pelvic arteries. CT/CT Chest, Abd, Pel w/Contrast IMPRESSION: Enlarged fibroid uterus. Stable left ovarian cyst. Electronically Signed: Bryan Kahn MD at 10:57 EDT , Service support ,
[2021-05-28 07:31] LABS: EGFR FINGERSTICK > 60.0000 mL/min (>60)
[2021-05-28 12:23] LABS: Vitamin D,25 Hydroxy 46.5 ng/mL
[2021-05-28 12:40] LABS: ALB/GLOB Ratio 1.2 RATIO (0.9-2.4); AST(SGOT) 20 U/L (15-37); Alanine Aminotransfer ALT/SGPT 26 U/L (13-56); Albumin, Serum 3.9 g/dL (3.2-5.0); Alkaline Phosphatase 80 U/L (45-117); Anion Gap 5 (5-15); BUN 17 mg/dL (7-18); BUN/Creat Ratio 20.9 RATIO (10-20); Calcium,Total 9.1 mg/dL (8.5-10.1); Chloride 102 mmol/L (98-107); Creatinine, Serum 0.81 mg/dL (0.55-1.02); EST Glomerular Filtration Rate 79 mL/min (>60); Est Glom Filt Rate - Afr Amer 95 mL/min (>60); Globulin 3.2 g/dL (2.2-4.2); Glucose 85 mg/dL (74-106); Potassium 3.7 mmol/L (3.5-5.1); Protein, Total 7.1 g/dL (6.4-8.2); Sodium Level 135 mmol/L (136-145); T4 Free Direct 1.49 ng/dL (0.76-1.46); Thyroid Stim Hormone (TSH) 0.63 uIU/mL (0.358-3.74)
== END ==
PROVIDERS: PCP Internal Medicine Endocrinology, Diabetes & Metabolism; Referring Provider Internal Medicine Hematology & Oncology; Visit Provider Internal Medicine Hematology & Oncology
DX: C73 Malignant neoplasm of thyroid gland (principal); C83.30 Diffuse large B-cell lymphoma, unspecified site; E55.9 Vitamin D deficiency, unspecified; E89.0 Postprocedural hypothyroidism
CPT/HCPCS: 36415; 70491; 71260; 74177; 80053; 82306; 84439; 84443; Q9967

== ENCOUNTER 2021-12-05 09:11 | Outpatient (CLI) | payer MEDICAID, SELFPAY ==
--- NOTE | 2021-12-05 09:12 | BI_ITS ---
MAMMOGRAPHY - BILATERAL SCREENING REASON FOR EXAM: Female, 51 years old. Routine annual screening examination. PERTINENT HISTORY: Non-contributory. History of lymphoma. TECHNIQUE: Digital bilateral breast abdullahi (3D mammographic acquisition) in the CC and MLO projections. 2-D mediolateral oblique (MLO) and craniocaudad (CC) views of both breasts were obtained. CAD: Full Field Digital Mammography with Computer Added Detection was performed. COMPARISON: Comparison is made with prior study dated 12/04/2020 and 11/21/2019. FINDINGS: Breast Composition: There are scattered areas of fibroglandular density. There are no dominant masses or suspicious calcifications. Stable benign-appearing small axillary lymph nodes. No other significant abnormalities are identified. There has been no significant change since the prior study. BI/SCRN MAMM (CAD)W/ABDULLAHI BILAT IMPRESSION: Stable bilateral screening mammogram. Yearly follow-up mammogram recommended. (A) ASSESSMENT CATEGORY: BIRADS Category 2: Benign. A letter regarding these results will be sent to the patient by the facility within 30 days. Approximately 10% of breast cancers are not detected by mammography. A normal mammogram should not delay biopsy of a clinically suspicious abnormality. [id number] Electronically Signed: Bryan Kahn MD at 10:24 EST , Service support ,
== END 2021-12-05 23:59 | disposition short-term general hospital (02) ==
LOC: OPBI 09:11
PROVIDERS: PCP Internal Medicine Endocrinology, Diabetes & Metabolism; Referring Provider Internal Medicine Hematology & Oncology; Visit Provider Internal Medicine Hematology & Oncology
DX: Z12.31 Encounter for screening mammogram for malignant neoplasm of breast (principal)
CPT/HCPCS: 77063; 77067

== ENCOUNTER 2022-01-28 12:37 | Outpatient (CLI) | payer MEDICAID, SELFPAY ==
--- NOTE | 2022-01-28 12:40 | CT_ITS ---
STUDY: CT CHEST, ABDOMEN T PELVIS WITH CONTRAST REASON FOR EXAM: Female, 51 years old. F/U LYMPHOMA RADIATION DOSAGE (If Supplied By Facility): CTDIvol = ( 21.81 ) mGy, DLP = ( 2618.04 ) mGycm TECHNIQUE: Transaxial imaging was performed following intravenous administration of IV 100mL Isovue-300. Individualized dose optimization techniques were used for this CT. COMPARISON: Comparison is made with prior examination dated 05/28/2021. FINDINGS: CHEST Stable small benign-appearing bilateral axillary lymph nodes. Minimal increased linear markings in the anterior aspect of the right upper lobe suggestive of a atelectasis and/or scarring. There is no demonstrated pleural abnormality. Normal heart and pericardium. Normal mediastinum. Normal hilar regions. Normal unenhanced pulmonary arteries. Normal aorta arch and descending thoracic aorta. There are multi-level degenerative changes of the thoracic spine. ABDOMEN There is decreased attenuation of the liver consistent with steatosis. Small gallstones are seen within the dependent lumen of the gallbladder. Normal spleen. Normal pancreas. Normal bilateral adrenal glands. Normal right kidney. Normal left kidney. Normal visualized stomach. Normal small intestine. Normal colon. The appendix is visualized and appears normal. Normal abdominal aorta. Normal inferior vena cava. Normal retroperitoneum. 2.7 cm x 3.1 cm cyst in the left ovary. This has increased slightly in size as compared to prior study. There is a small umbilical hernia containing fat. There are diffuse degenerative changes of the visualized lumbar spine. PELVIS Normal urinary bladder. Enlarged heterogeneous uterus in keeping with a fibroid uterus. Normal visualized small intestine. Normal visualized colon. There is no pelvic fluid. There is no pelvic lymphadenopathy or mass lesion. There is diffuse atherosclerotic calcification of the pelvic arteries. CT/CT Chest, Abd, Pel w/Contrast IMPRESSION: Essentially stable examination except for slight enlargement of the left ovarian cyst. Electronically Signed: Bryan Kahn MD at 14:18 EST ,
--- NOTE | 2022-01-28 12:40 | CT_ITS ---
EXAM: CT NECK WITH INTRAVENOUS CONTRAST CLINICAL INDICATION: Follow-up lymphoma. TECHNIQUE: Helically acquired images were obtained of the neck with intravenous contrast. This CT exam was performed using one or more of the following dose reduction techniques: automated exposure control, adjustment of the mA and/or kV according to patient size, and/or use of iterative reconstruction technique. This report was created using [employer] report generation technology. CONTRAST: IV 100mL Isovue-300 COMPARISON: CT neck with contrast 05/28/2021. FINDINGS: NASOPHARYNX: Unremarkable. SUPRAHYOID NECK: Unremarkable. Oropharynx, oral cavity, parapharyngeal space and retropharyngeal space are unremarkable. INFRAHYOID NECK: Unremarkable. The larynx, hypopharynx and supraglottis are unremarkable. SUBMANDIBULAR/PAROTID GLANDS: Unremarkable. Glands are normal in size. THYROID: Unremarkable. No enlarged or calcified nodules. BONES/JOINTS: No acute fracture. SOFT TISSUES: Unremarkable. VASCULATURE: No acute findings. LYMPH NODES: Minimal peripherally enhancing solid lymph node in left level IIb has mild central measures 1.5 x 1.1 cm, previously 1.1 x 0.8 cm. Homogeneously enhancing left level 1A and left level 2A lymph node are not enlarged and unchanged. Smaller homogeneously mildly enhancing right level 2A lymph node is unchanged. Smaller lymph nodes in left levels 4, 5A, 5B and 6 are unchanged. LUNG APICES: Unremarkable as visualized. CT/Soft Tissue Neck WITH Contrast IMPRESSION: 1. Mild increase in size in minimal peripherally enhancing solid lymph node with slight central hypodensity (series 605, image 51) measures 1.5 x 1.1 cm, previously 1.1 x 0.8 cm. This is suspicious for pathologic lymph node. This is feasible for CT guided FNA. 2. Homogeneous enhancing left level a in left level 2A lymph nodes are not enlarged and are unchanged. 3. Smaller homogeneously and mildly enhancing right level 2A lymph node is unchanged. 4. Multiple small solid lymph nodes in the left infrahyoid neck (left levels 4, 5A, 5B and 6) without central necrosis are unchanged. Electronically Signed: Luis Tsai MD at 14:50 EST ,
[2022-01-28 12:55] LABS: CREATININE FINGERSTICK 0.8 mg/dL (0.55-1.02); EGFR FINGERSTICK > 60.0000 mL/min (>60)
== END 2022-01-28 23:59 | disposition home or self-care (01) ==
LOC: CT 12:39
PROVIDERS: PCP Internal Medicine Endocrinology, Diabetes & Metabolism; Referring Provider Internal Medicine Hematology & Oncology; Visit Provider Internal Medicine Hematology & Oncology
DX: C83.38 Diffuse large B-cell lymphoma, lymph nodes of multiple sites (principal)
CPT/HCPCS: 70491; 71260; 74177; Q9967

== ENCOUNTER → 2022-05-12 | Outpatient (CLI) | payer MEDICAID, SELFPAY ==
--- NOTE | 2022-05-12 08:20 | CT_ITS ---
STUDY: CT SOFT TISSUE NECK WITH CONTRAST REASON FOR EXAM: Female, 51 years old. F/U LYMPHOMA WITH ENLARGEMENT OF LEFT CERVICAL LN RADIATION DOSAGE (If Supplied By Facility): CTDIvol = ( 19.94 ) mGy, DLP = ( 582.73 ) mGycm TECHNIQUE: The patient was scanned in a multi-detector CT scanner. High resolution transaxial imaging was performed following intravenous administration of IV 75mL Isovue-370. Sagittal and coronal images were reconstructed. Individualized dose optimization techniques were used for this CT. COMPARISON: 01/28/2022 FINDINGS: Normal bilateral parotid glands. Normal bilateral facility maintenance mechanic spaces. Normal bilateral parapharyngeal spaces. Normal bilateral carotid spaces. Normal bilateral sublingual and submandibular glands and spaces. Normal visualized nasopharynx. Normal retropharyngeal space. Normal perivertebral space. Normal visualized bilateral faucial tonsils. The visualized tongue, tongue base and oropharynx are normal. Interval decrease in the size of the previously described left level IIb jugular lymph node from 1.5 x 1.1 cm to a normal 0.8 x 1.0 cm. Another jugular and posterior triangle lymph nodes are unchanged and normal in size. No new lymphadenopathy. There is no demonstrated solid or cystic mass lesion. There is no abnormal contrast enhancement. Normal epiglottis, bilateral vallecula and hypopharynx. The pre-epiglottic and paraglottic adipose spaces are normal. Normal visualized bilateral piriform sinuses, aryepiglottic folds, vocal cords, and arytenoid-cricoid articulations. Normal subglottic trachea. Normal bilateral lobes of the thyroid gland. Normal visualized pulmonary apices. Normal visualized paranasal sinuses. Normal visualized cervical spine. CT/Soft Tissue Neck WITH Contrast IMPRESSION: Normal enhanced CT examination of the soft tissues of the neck. Interval decrease in size of the singular left jugular lymph node with other smaller lymph nodes. Electronically Signed: Dale Price MD at 9:54 EDT ,
[2022-05-12 08:25] LABS: CREATININE FINGERSTICK < 0.9 mg/dL (0.55-1.02); EGFR FINGERSTICK > 60.0000 mL/min (>60)
== END | disposition home or self-care (01) ==
LOC: CT 08:06
PROVIDERS: PCP Internal Medicine Endocrinology, Diabetes & Metabolism; Referring Provider Internal Medicine Hematology & Oncology; Visit Provider Internal Medicine Hematology & Oncology
DX: C85.91 Non-Hodgkin lymphoma, unspecified, lymph nodes of head, face, and neck (principal); R59.9 Enlarged lymph nodes, unspecified
CPT/HCPCS: 70491; Q9967

== ENCOUNTER → 2022-12-09 | Outpatient (CLI) | payer MEDICAID, SELFPAY ==
--- NOTE | 2022-12-09 09:32 | BI_ITS ---
MAMMOGRAPHY - BILATERAL SCREENING REASON FOR EXAM: Female, 52 years old. Routine annual screening examination. PERTINENT HISTORY: Non-contributory. TECHNIQUE: Digital bilateral breast abdullahi (3D mammographic acquisition) in the CC and MLO projections. 2-D mediolateral oblique (MLO) and craniocaudad (CC) views of both breasts were obtained. CAD: Full Field Digital Mammography with Computer Added Detection was performed. COMPARISON: Comparison is made with prior study dated 12/05/2021 and 12/04/2020. FINDINGS: Breast Composition: There are scattered areas of fibroglandular density. There are no dominant masses or suspicious calcifications. Stable small benign-appearing bilateral axillary lymph nodes. No other significant abnormalities are identified. There has been no significant change since the prior study. BI/SCRN MAMM (CAD)W/ABDULLAHI BILAT IMPRESSION: Stable bilateral screening mammogram. Yearly follow-up mammogram recommended. (A) ASSESSMENT CATEGORY: BIRADS Category 2: Benign. A letter regarding these results will be sent to the patient by the facility within 30 days. Approximately 10% of breast cancers are not detected by mammography. A normal mammogram should not delay biopsy of a clinically suspicious abnormality. [id number] Electronically Signed: Bryan Kahn MD at 10:40 EST ,
== END | disposition home or self-care (01) ==
LOC: OPBI 09:30
PROVIDERS: PCP Internal Medicine Endocrinology, Diabetes & Metabolism; Visit Provider Internal Medicine Hematology & Oncology
DX: Z12.31 Encounter for screening mammogram for malignant neoplasm of breast (principal)
CPT/HCPCS: 77063; 77067

== ENCOUNTER → 2023-09-04 | Outpatient (CLI) | payer MEDICAID, SELFPAY ==
[2023-09-04 12:49] LABS: T4 Free Direct 1.52 ng/dL (0.76-1.46); Thyroid Stim Hormone (TSH) 0.28 uIU/mL (0.358-3.74)
== END | disposition home or self-care (01) ==
LOC: BIMLAB 09:29
PROVIDERS: PCP Internal Medicine Endocrinology, Diabetes & Metabolism; Referring Provider Internal Medicine Endocrinology, Diabetes & Metabolism; Visit Provider Internal Medicine Endocrinology, Diabetes & Metabolism
DX: E03.9 Hypothyroidism, unspecified (principal)
CPT/HCPCS: 36415; 84439; 84443

== ENCOUNTER → 2024-06-28 | Outpatient (CLI) | payer MEDICAID, SELFPAY ==
[2024-06-28 12:06] LABS: Absolute Lymphocyte Count 1.21 X10^3/uL (0.83-4.51); Absolute Neutrophil Count 2.2 X10^3/uL (2.0-7.7); Basophil# 0.05 X10^3/uL; Basophil% 1.2 % (0-1); Eosinophil# 0.23 X10^3/uL; Eosinophils% 5.7 % (0-5); Hematocrit 40.1 % (37-47); Hemoglobin 12.9 g/dL (12.0-15.0); Lymphocyte # 1.21 X10^3/ul (0.83-4.51); Lymphocyte % 29.9 % (19-41); Mean Corp Hgb Conc 32.2 g/dL (32-36); Mean Corpuscular Hgb 28.1 pg (27.0-32.0); Mean Corpuscular Volume 87.4 fL (81-99); Mean Platelet Vol. 9.4 fl (6.2-12.0); Monocyte# 0.35 X10^3/uL; Monocyte% 8.6 % (0-10); NRBC Flagged by Analyzer 0 % (0-5); Neutrophil # 2.19 X10^3/uL (2.7-7.7); Neutrophil % 54.1 % (47-70); Platelet Count 295 K/mm3 (150-450); RBC Distribution Width CV 14.5 % (11.6-14.6); Red Blood Count 4.59 M/mm3 (4.2-5.4); White Blood Count 4.1 K/mm3 (4.4-11.0)
[2024-06-28 12:18] LABS: Vitamin D,25 Hydroxy 48.8 ng/mL
[2024-06-28 12:26] LABS: ALB/GLOB Ratio 1.1 RATIO (0.9-2.4); AST(SGOT) 19 U/L (15-37); Alanine Aminotransfer ALT/SGPT 27 U/L (13-56); Albumin, Serum 3.6 g/dL (3.2-5.0); Alkaline Phosphatase 65 U/L (45-117); Anion Gap 7 (5-15); BUN 18 mg/dL (7-18); BUN/Creat Ratio 24.2 RATIO (10-20); Chloride 107 mmol/L (98-107); Cholesterol 180 mg/dL (200); Creatinine, Serum 0.74 mg/dL (0.55-1.02); EST Glomerular Filtration Rate 86 mL/min (>60); Est Glom Filt Rate - Afr Amer 104 mL/min (>60); Globulin 3.3 g/dL (2.2-4.2); Glucose 95 mg/dL (74-106); High Density Lipoprotein 42 mg/dL; Potassium 3.5 mmol/L (3.5-5.1); Protein, Total 6.9 g/dL (6.4-8.2); Sodium Level 143 mmol/L (136-145); T4 Free Direct 1.55 ng/dL (0.76-1.46); Thyroid Stim Hormone (TSH) 0.32 uIU/mL (0.358-3.74); Triglycerides 176 mg/dL; Very Low Density Lipoprotein 35 mg/dL (5-40)
== END | disposition home or self-care (01) ==
LOC: BIMLAB 08:54
PROVIDERS: PCP Internal Medicine Endocrinology, Diabetes & Metabolism; Referring Provider Internal Medicine Endocrinology, Diabetes & Metabolism; Visit Provider Internal Medicine Endocrinology, Diabetes & Metabolism
DX: E89.0 Postprocedural hypothyroidism (principal); R53.83 Other fatigue; E55.9 Vitamin D deficiency, unspecified
CPT/HCPCS: 36415; 80053; 80061; 82306; 84439; 84443; 85025

== ENCOUNTER → 2025-06-13 | Outpatient (CLI) | payer MEDICAID, SELFPAY | END | disposition home or self-care (01) | LOC: BIMLAB 09:05 | PROVIDERS: PCP Internal Medicine; Referring Provider Internal Medicine Endocrinology, Diabetes & Metabolism; Visit Provider Internal Medicine Endocrinology, Diabetes & Metabolism | DX: E89.0 Postprocedural hypothyroidism (principal) | CPT/HCPCS: 36415; 84439; 84443 ==

== ENCOUNTER 2025-11-15 06:20 | Emergency (ER) | payer MEDICAID, SELFPAY ==
[2025-11-15 06:22] VITALS: BP 177/111; PULSE 110; RESP 18; TEMP 37.7; O2SAT 95; BMI 43.4
--- OUTSIDE RECORDS SUMMARY | 2025-11-15 07:01 | XMS RPT_ITS | CCD ---
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 Anthony Armstrong Primary Care Provider Dr. Anthony Armstrong Referring Provider [phone] Honorio Waite Attending Provider Dr. Anthony Armstrong Primary Care Provider [phone] Dr. Anthony Armstrong Attending Provider Dr. Anthony Armstrong Referring Provider [phone] Anthony Armstrong MD Attending Provider [phone] Karissa RONDON, Dr. Helms Primary Care Provider [facility] Doctor, Out of Referring Provider Unavailab Paola RONDON, Dr. Cruz Referring Provider Analia Hancock Primary Care Unavailable Nathaniel, Anthony Attending Unavailable Town Doctor, Out of Referring Unavailable Nathaniel, Anthony Attending Unavailable Nathaniel, Anthony Referring Unavailable Nathaniel, Anthony Primary Care Unavailable Dante, Analia Referring Unavailable Chetna KNOTTER HAND, Lisa Attending Unavailable Nathaniel, Anthony Primary Care Unavailable Nathaniel, Anthony Primary Care Unavailable Nathaniel, Anthony Attending Unavailable Nathaniel, Anthony Referring Unavailable Karissa, Analia Primary Care Unavailable Nathaniel, Anthony Attending Unavailable Nathaniel, Anthony Referring Unavailable Nathaniel, Anthony Primary Care Unavailable Nathaniel, Anthony Attending Unavailable Nathaniel, Anthony Referring Unavailable Karissa, Analia Attending Unavailable Nathaniel, Anthony Referring Unavailable Nathaniel, Anthony Primary Care Unavailable Allergies Allergy Classification Reported Allergen(s) Allergy Type Date of Onset Reaction(s) Facility (5 sources) Codeine Drug Allergy 02-17-2022 Vomiting [facility] (1 source) Codeine Drug Allergy 06-06-2025 [facility] Repository Medications Current Medications Medication Drug Class(es) Dates Sig (Normalized) Sig (Original) calcium carbonate 500 mg chewable tablet (5 sources) Start: 07-11-2019 take 1 tablet by mouth once daily as needed for thyroid dysfunction Calcium Carbonate 500 MG tablet Active 500 mg PO DAILY@0800 as needed for THYROID July 11, 2019 12:00am ergocalciferol 1.25 mg oral capsule (20 sources) Provitamin D2 Compound Start: 07-01-2022 End: 01-23-2023 Ergocalciferol (Vitamin D2) 1,250 mcg (50,000 unit) capsule Active 43877 U PO .twice a month 6 January 23, 2023 9:44am Start: 07-01-2022 End: 01-23-2023 Ergocalciferol (Vitamin D2) Active 85832 UNIT PO .twice a month January 23, 2023 9:44am Start: 05-08-2020 End: 07-01-2022 Ergocalciferol (Vitamin D2) 1,250 mcg (50,000 unit) capsule Discontinued 31358 U PO HERNANDEZ 10 25April 05, 2021 1:34pm January 02, 2022 9:23am Start: 07-05-2019 End: 07-01-2022 Ergocalciferol (Vitamin D2) 50,000 UNIT capsule Discontinued 46425 U PO HERNANDEZ July 05, 2019 12:00am May 08, 2020 9:32am levothyroxine sodium 0.15 mg oral tablet (20 sources) l-Thyroxine Start: 11-07-2019 End: 06-15-2025 take 1 tablet by mouth once daily Levothyroxine 150 mcg tablet Active 150 ug PO DAILY June 15, 2025 9:43am Start: 09-29-2013 End: 11-07-2019 Levothyroxine 200 MCG tablet Discontinued 175 ug PO DAILY September 29, 2013 1:00am November 07, 2019 10:42am THYROID Start: 09-29-2013 End: 11-07-2019 take 175 ug by mouth once daily Levothyroxine Discontinued 175 MCG PO DAILY September 29, 2013 1:00am November 07, 2019 10:42am Completed/Discontinued Medications Medication Drug Class(es) Dates Sig (Normalized) Sig (Original) atenolol 25 mg oral tablet (5 sources) beta-Adrenergic Brad Start: 08-04-2018 End: 11-07-2019 take 1 tablet by mouth once daily Atenolol 25 MG tablet Discontinued 25 mg PO DAILY 30 0 August 04, 2018 12:00am November 07, 2019 10:42am calcium carbonate 1250 mg / cholecalciferol 600 unt oral tablet (5 sources) Vitamin D Start: 07-05-2019 End: 05-08-2020 Calcium Carbonate-Vitamin D3 1 EACH tablet Discontinued 1 NMA PO THREE TIMES A DAY July 05, 2019 12:00am May 08, 2020 9:11am Start: 07-05-2019 End: 05-08-2020 Calcium Carbonate-Vitamin D3 Discontinued 1 EACH PO THREE TIMES A DAY July 05, 2019 12:00am May 08, 2020 9:11am fluconazole 100 mg oral tablet (5 sources) Azole Antifungal Start: 12-26-2019 End: 12-27-2019 take 1 tablet by mouth once Fluconazole 100 MG tablet Discontinued 100 mg PO ONE TIME 1 1 December 26, 2019 1:00am December 26, 2019 1:00am December 27, 2019 1:08am Candidiasis of mouth Candidal stomatitis hydroCHLOROthiazide 25 mg oral tablet (20 sources) Thiazide Diuretic Start: 05-07-2021 End: 04-05-2025 take 1 tablet by mouth once daily Hydrochlorothiazide 25 mg tablet Discontinued 25 mg PO DAILY 90 October 12, 2024 4:13pm April 05, 2025 3:34pm 24 hr metoprolol succinate 25 mg extended release oral tablet (20 sources) beta-Adrenergi c Brad Start: 11-07-2019 End: 04-05-2025 take 1 tablet by mouth once daily Metoprolol Succinate 25 mg tablet extended release 24 hr Discontinued 25 mg PO DAILY 90 October 12, 2024 4:13pm April 05, 2025 3:34pm nystatin 172204 unt/ml oral suspension (5 sources) Polyene Antifungal Start: 08-18-2019 End: 11-07-2019 take 1 mL by mouth every six hours as needed Nystatin 100,000 UNIT/ML suspension Discontinued 5 mL PO EVERY 6 HOURS NEEDED 300 30 August 18, 2019 10:45am November 07, 2019 10:20am Candidiasis of mouth Candidal stomatitis Start: 08-18-2019 End: 11-07-2019 take 1 mL by mouth every six hours as needed Nystatin Discontinued 5 ML PO EVERY 6 HOURS NEEDED 300 30 August 18, 2019 10:45am November 07, 2019 10:20am Problems Active Problems Problem Classification Problem Date Documented Da te Episodic/Chronic Complications of surgical procedures or medical care (1 source) Postprocedural hypothyroidism; Translations: [Postprocedural hypothyroidism] Onset: 06-19-2025 Chronic Deficiency and other anemia (5 sources) Anemia; Translations: [Anemia, unspecified] 09-10-2020 Episodic Deficiency and other anemia (2 sources) Anemia, unspecified; Translations: [Anemia, unspecified] Episodic Essential hypertension (8 sources) Hypertensive disorder; Translations: [Essential (primary) hypertension] Onset: 06-06-2025 07-07-2019 Chronic Fluid and electrolyte disorders (10 sources) Hypokalemia; Translations: [Hypokalemia] 01-02-2022 Episodic Mycoses (7 sources) Candidiasis of mouth; Translations: [Candidal stomatitis] Episodic Non-Hodgkin`s lymphoma (10 sources) Diffuse non-Hodgkin's lymphoma, large cell (clinical); Translations: [Diffuse large B-cell lymphoma, unspecified site] Chronic Nutritional deficiencies (5 sources) Vitamin D deficiency; Translations: [Vitamin D deficiency, unspecified] 05-07-2021 Chronic Other gastrointestinal disorders (5 sources) Constipation; Translations: [Constipation, unspecified] 09-29-2019 Episodic Other gastrointestinal disorders (2 sources) Constipation, unspecified; Translations: [Constipation, unspecified] Episodic Other nutritional; endocrine; and metabolic disorders (5 sources) Body mass index 40+ - severely obese; Translations: [Morbid (severe) obesity due to excess calories] 07-07-2019 Chronic Other nutritional; endocrine; and metabolic disorders (1 source) Morbid (severe) obesity due to excess calories; Translations: [Morbid (severe) obesity due to excess calories] Onset: 06-28-2024 Chronic Other nutritional; endocrine; and metabolic disorders (1 source) Body mass index (BMI) 40.0-44.9, adult; Translations: [Body mass index [BMI] 40.0-44.9, adult] Onset: 06-28-2024 Chronic Other upper respiratory disease (5 sources) Disorder of trachea; Translations: [Other specified diseases of upper respiratory tract] 06-15-2019 Episodic Other upper respiratory disease (5 sources) Biphasic stridor; Translations: [Stridor] 06-15-2019 Episodic Pneumonia (except that caused by tuberculosis or sexually transmitted disease) (5 sources) Community acquired pneumonia; Translations: [Pneumonia, unspecified organism] 12-12-2019 Episodic Respiratory failure; insufficiency; arrest (adult) (5 sources) Acute respiratory failure; Translations: [Acute respiratory failure with hypoxia] 12-12-2019 Episodic Septicemia (except in labor) (5 sources) Sepsis; Translations: [Sepsis, unspecified organism] 12-12-2019 Episodic Thyroid disorders (8 sources) Hypothyroidism; Translations: [Hypothyroidism, unspecified] 05-08-2020 Chronic Thyroid disorders (3 sources) Mass of thyroid gland; Translations: [Disorder of thyroid, unspecified] 12-12-2019 Episodic Past or Other Problems Problem Classification Problem Date Documented Da te Episodic/Chronic Malaise and fatigue (8 sources) Fatigue; Translations: [Other fatigue] Onset: 06-28-2024 Episodic Unclassified (4 sources) PORT REMOVAL 06-12-2022 Comment on above: NOV 2019 Results Test Name Value Interpretation Reference Range Facility T4 Free Directon 06-13-2025 T4 FREE DIRECT 1.70 ng/dL High 0.76-1.46 [facility] Comment on above: Performed By: #### L [id number], L506.0400 ####[facility] [address] [place], [place], [id number] T4 freeOrdered By: Anthony Armstrong on 06-13-2025 Free T4 [Mass/Vol] 1.70 ng/dL High 0.76-1.46 [facility] TSH DL <= 0.005 mIU/L QnOrde red By: Anthony Armstrong on 06-13-2025 TSH Qn 1.080 uIU/mL 0.300-4.200 [facility] Thyroid Stim Hormone (TSH)on 06-13-2025 TSH 1.080 uIU/mL Normal 0.300-4.200 [facility] Comment on above: Performed By: #### L [id number], L506.0400 #### [facility] Laboratory [address] [place], [place], [address] Endocrinology Visit Reporton 06-06-2025 Endocrinology Visit Report [facility] [address] [place] [address] OFFICE VISIT Date of Service: 06/06/25 MR#: [id number] Acct: [id number] Name: VANESSA DE LA PAZ Rep #: [id number] : 1970 Provider: Cameron Vergara Age/Sex: 54/F Location: [facility] Status: Signed Intake Vital Signs 09/15/24 09:19 06/06/25 09:26 Height 5 ft 6 in 5 ft 6 in Weight: 270 lb 273 lb 6 oz BMI 43.5 44.1 BP 138/84 H 154/93 H Blood Pressure Location Lt brachial Rt brachial Position Sitting Sitting Respiration 16 Pulse 69 62 Pulse Source Monitor Monitor Temp 97.3 F L Temp Source Temporal Pulse Oximetry (%) 99 96 Oxygen Delivery Method room air room air Intake Visit Reasons: 9 M FU Chief Complaint: Post surgical hypothyroidism Is patient in pain?: No Allergies codeine Adverse Reaction (Severe, Verified 06/06/25 09:27) Vomiting Medications ???Medication ???Instructions ???Recorded ???Confirmed ???Type calcium carbonate 500 mg PO DAILY@0800 PRN THYROID 0 07/11/19 06/06/25 History ergocalciferol (vitamin D2) 1,250 50,000 unit PO .twice a month #6 01/23/23 06/06/25 Rx mcg (50,000 unit) capsule caps levothyroxine 150 mcg tablet 150 mcg PO DAILY #90 tabs 06/28/24 06/06/25 Rx hydrochlorothiazide 25 mg tablet 25 mg PO DAILY #90 tabs 04/05/25 0 06/06/25 Rx metoprolol succinate 25 mg 25 mg PO DAILY #90 tabs 04/05/25 0 06/06/25 Rx tablet,extended release 24 hr PFS Medical History (Updated 06/06/25 @ 09:[address] Anthony Armstrong MD) Knee pain Hypokalemia Vitamin D deficiency Thyroid cancer Oral candidiasis DLBCL (diffuse large B cell lymphoma) Thyroid mass Acquired hypothyroidism Hypokalemia Vitamin deficiency Malaise and fatigue Iron deficiency Hypercalcemia Esophageal reflux Lactic acidosis Morbid obesity with BMI of 40.0-44.9, adult Acute respiratory failure with hypoxia Hypothyroidism Hypertension Severe sepsis Community acquired pneumonia Surgical History PORT REMOVAL History of reversal of tubal ligation History of tubal ligation History of parathyroidectomy History of thyroidectomy, total Family History Grandmother Heart disease Father Diabetes Mother Heart disease Lupus Sister Thyroid disorder Aunt Thyroid disorder Social History household members: children current occupational status: employed current occupation: works at [employer] Smoking Status: Never smoker alcohol intake: never substance use type: does not use what type of physical activity do you participate in: walking frequency: 1-2 times per week do you feel safe at home: Yes HPI HPI Chief Complaint: Post surgical hypothyroidism Details: VANESSA DE LA PAZ, is a 54 F who presents to the office today for follow up. She presented with thyroid mass in 2019. She was diagnosed with lymphoma. She was treated by Dr. Kidd. She is doing well. Family life is calmer. She is taking levothyroxine 150 mcg daily. She is due for labs. She has HTN and BP is high today. Son is a engineering model maker. ROS Const Constitutional: No fatigue, weight change or change in appetite Eyes Eyes: No change in vision ENT ENT: No dizziness/vertigo or difficulty swallowing Cardio Cardiology: No chest pain at rest, chest pain with exertion, shortness of breath or palpitations Musc Musculoskeletal: No abnormal gait, joint pain, numbness or tingling Neuro Neurology: No abnormal gait, memory loss, numbness or tingling Psych Psychiatric: No change in appetite, No memory loss and No Thoughts of harming yourself/Others Resp Respiratory: No cough, chest congestion or shortness of breath Gastro GI: No abdominal pain, constipation, diarrhea or difficulty swallowing Genitourinary-Female: No burning urination Skin Skin: No itchy eyes or wounds Endo Endocrine: No fatigue or weight change Aller/Imm Allergy/Immunologic: No itchy eyes Exam Const General: cooperative, healthy appearing, comfortable, no acute distress, well developed and not cushingoid Nutritional Appearance: well nourished and obese Orientation: alert, awake and oriented x3 HENMT Head: normal to inspection Ears: hearing grossly normal bilaterally Nose: external nose normal Mouth: oral mucosae normal Eyes General: appearance normal, both eyes and all related structures Alignment and Position: alignment normal Periorbital: periorbital findings normal Eyelids: eyelids normal Conjunctivae: conjunctivae normal Neck Neck: normal visual inspection Neck mass: No Thyroid: other (no palpable tissue) Lymphatic: no lymphadenopathy noted Chest Chest p (more content not included)... Normal [facility] Internal Medicine Office Vis itomaxine 09-14-2024 Internal Medicine Office Visit [facility] [address] [place] [address] [place] [address] OFFICE VISIT Date of Service: 09/15/24 MR#: [id number] Acct: [id number] Name: VANESSA DE LA PAZ Rep #: [id number] : 1970 Provider: Dr. 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 Accompanied by: Self Is patient in pain?: No Allergies codeine Adverse Reaction (Severe, Verified 09/15/24 09:16) Vomiting Medications ???Medication ???Instructions ???Recorded ???Confirmed ???Type calcium carbonate 500 mg PO DAILY@0800 PRN THYROID 07/11/19 09/15/24 History ergocalciferol (vitamin D2) 1,250 50,000 unit PO .twice a month #6 01/23/23 09/15/24 Rx mcg (50,000 unit) capsule caps hydrochlorothiazide 25 mg tablet 25 mg PO DAILY #90 tabs 06/28/24 09/15/24 Rx levothyroxine 150 mcg tablet 150 mcg PO DAILY #90 tabs 06/28/24 09/15/24 Rx metoprolol succinate 25 mg 25 mg PO DAILY #90 tabs 06/28/24 09/15/24 Rx tablet,extended release 24 hr PFSH Medical History (Updated 09/15/24 @ 09:[address] Analia Hancock MD) Knee pain Hypokalemia Vitamin D deficiency Thyroid cancer Oral candidiasis DLBCL (diffuse large B cell lymphoma) Thyroid mass Acquired hypothyroidism Hypokalemia Vitamin deficiency Malaise and fatigue Iron deficiency Hypercalcemia Esophageal reflux Lactic acidosis Morbid obesity with BMI of 40.0-44.9, adult Thyroid mass Acute respiratory failure with hypoxia Hypothyroidism Hypertension Severe sepsis Community acquired pneumonia Surgical History (Updated 09/15/24 @ 09:[address] Analia Hancock MD) PORT REMOVAL History of reversal of tubal ligation History of tubal ligation History of parathyroidectomy History of thyroidectomy, total Family History Grandmother Heart disease Father Diabetes Mother Heart disease Lupus Sister Thyroid disorder Aunt Thyroid disorder Social History household members: children current occupational status: employed current occupation: works at [employer] Smoking Status: Never smoker alcohol intake: never substance use type: does not use what type of physical activity do you participate in: walking frequency: 1-2 times per week do you feel safe at home: Yes HPI HPI Chief Complaint: est care Details: VANESSA DE LA PAZ, is a 54 F who presents to the office today to establish care. She was seeing Dr. Chin and last saw them about 5 years ago. She is not due for any routine blood work. She is due for some screening. She doesn't want any immunizations. She doesn't smoke and doesn't need any refills. She reports she is eating healthy and staying active through work. The patient has a history of lymphoma involving the thyroid and parathyroid levels. She is s/p surgery. She has been on synthroid since then. She reports she is taking it as prescribed without problems. She takes it first thing in the morning before anything else. She follows with endocrinology for management. The patient has been on blood pressure medications for about 5 years. She doesn't check her blood pressure at home. She is taking her medication as prescribed without problems. She does try to monitor her salt intake. The patient is following with [facility] for her knees. She reports she was told it was bone on bone. She recently had an injection into her right knee which did help. She has an upcoming follow up with them to have the same for her left knee. She has no questions or concerns at this time. ROS Const Constitutional: No body ache, chills, excessive sweating, fatigue, fever(s), frequent falls, headache(s), snoring, weakness, weight change or change in appetite Eyes Eyes: No blurry vision, change in vision, eye pain or Light sensitivity ENT ENT: No abnormal hearing, ear or mastoid pain, tinnitus, nasal congestion, headache(s), neck pain or sore throat Resp Respiratory: No cough, shortness of breath, snoring or wheezing Cardio Cardiology: No chest pain at rest, chest pain with exertion, excessive sweating, dyspnea on exertion, lightheadedness, orthopnea, palpitations or other (no leg swelling) Gastro GI: No abdominal pain, change in bowel habits, constipation, cramping, diarrhea, nausea/dyspepsia or vomiting Genitourina (more content not included)... Normal [facility] CBC W/Diff, Automatedon 08-0 6-2023 Absolute Lymph 1.21 X10 3/uL Normal 0.83-4.51 [facility] Comment on above: Performed By: #### L 500.4100, L500.4050, L501.9520, L100.0100, L506.0400, L506.1000 #### [facility] Laboratory [address] [place], [address] Absolute Neut 2.2 X10 3/uL Normal 2.0-7.7 [facility] Comment on above: Performed By: #### L 500.4100, L500.4050, L501.9520, L100.0100, L506.0400, L506.1000 #### [facility] [address] [place], [address] Basophils/100 WBC (Bld) 1.2 % High 0-1 [facility] Comment on above: Performed By: #### L 500.4100, L500.4050, L501.9520, L100.0100, L506.0400, L506.1000 #### [facility] [address] [place], [address] Eosinophils/100 WBC (Bld) 5.7 % High 0-5 [facility] Comment on above: Performed By: #### L 500.4100, L500.4050, L501.9520, L100.0100, L506.0400, L506.1000 #### [facility] [address] [place], [address] Erythrocyte distribution width (RBC) [Ratio] 14.5 % Normal 11.6-14.6 [facility] Comment on above: Performed By: #### L 500.4100, L500.4050, L501.9520, L100.0100, L506.0400, L506.1000 #### [facility] [address] [place], [address] Hematocrit (Bld) [Volume fraction] 40.1 % Normal 37-47 [facility] Comment on above: Performed By: #### L 500.4100, L500.4050, L501.9520, L100.0100, L506.0400, L506.1000 #### [facility] [address] [place], [address] Hemoglobin (Bld) [Mass/Vol] 12.9 g/dL Normal 12.0-15.0 [facility] Comment on above: Performed By: #### L 500.4100, L500.4050, L501.9520, L100.0100, L506.0400, L506.1000 #### [facility] [address] [place], [address] IG% 0.500 Normal 0.0-0.9 [facility] Comment on above: Result Comment: IG% - Immature Granulocytes (promyelocytes, myelocytes and metamyelocytes) > 1% indicates that a LEFT SHIFT is Present. Performed By: #### L 500.4100, L500.4050, L501.9520, L100.0100, L506.0400, L506.1000 #### [facility] [address] [place], [address] Lymphocytes/100 WBC (Bld) 29.9 % Normal 19-41 [facility] Comment on above: Performed By: #### L 500.4100, L500.4050, L501.9520, L100.0100, L506.0400, L506.1000 #### [facility] [address] [place], [address] MCH (RBC) [Entitic mass] 28.1 pg Normal 27.0-32.0 [facility] Comment on above: Performed By: #### L 500.4100, L500.4050, L501.9520, L100.0100, L506.0400, L506.1000 #### [facility] [address] [place], [address] MCHC (RBC) [Mass/Vol] 32.2 g/dL Normal 32-36 [facility] Comment on above: Performed By: #### L 500.4100, L500.4050, L501.9520, L100.0100, L506.0400, L506.1000 #### [facility] [address] [place], [address] MCV (RBC) [Entitic vol] 87.4 fL Normal 81-99 [facility] Comment on above: Performed By: #### L 500.4100, L500.4050, L501.9520, L100.0100, L506.0400, L506.1000 #### [facility] [address] [place], [address] Monocytes/100 WBC (Bld) 8.6 % Normal 0-10 [facility] Comment on above: Performed By: #### L 500.4100, L500.4050, L501.9520, L100.0100, L506.0400, L506.1000 #### [facility] [address] [place], [address] Neutrophils/100 WBC (Bld) 54.1 % Normal 47-70 [facility] Comment on above: Performed By: #### L 500.4100, L500.4050, L501.9520, L100.0100, L506.0400, L506.1000 #### [facility] [address] [place], [address] Nucleated RBC (Bld) [#/Vol] 0 10*3/uL Normal 0-5 [facility] Comment on above: Performed By: #### L 500.4100, L500.4050, L501.9520, L100.0100, L506.0400, L506.1000 #### [facility] [address] [place], [address] Platelet mean volume (Bld) [Entitic vol] 9.4 fL Normal 6.2-12.0 [facility] Comment on above: Performed By: #### L 500.4100, L500.4050, L501.9520, L100.0100, L506.0400, L506.1000 #### [facility] [address] [place], [address] Platelets (Bld) [#/Vol] 295 10*3/uL Normal 150-450 [facility] Comment on above: Performed By: #### L 500.4100, L500.4050, L501.9520, L100.0100, L506.0400, L506.1000 #### [facility] [address] [place], [address] RBC (Bld) [#/Vol] 4.59 10*6/uL Normal 4.2-5.4 [facility] [facility] [place] Comment on above: Performed By: #### L 500.4100, L500.4050, L501.9520, L100.0100, L506.0400, L506.1000 #### [facility] [address] [place], [address] RDW SD 46.0 fl High 35.1-43.9 [facility] Comment on above: Performed By: #### L 500.4100, L500.4050, L501.9520, L100.0100, L506.0400, L506.1000 #### [facility] [address] [place], [address] WBC (Bld) [#/Vol] 4.1 10*3/uL Low 4.4-11.0 [facility] Comment on above: Performed By: #### L 500.4100, L500.4050, L501.9520, L100.0100, L506.0400, L506.1000 #### [facility] [address] [place], [address] Comprehensive Metabolic Prof [facility] 06-28-2024 Albumin [Mass/Vol] 3.6 g/dL Normal 3.2-5.0 [facility] Comment on above: Performed By: #### L 500.4100, L500.4050, L501.9520, L100.0100, L506.0400, L506.1000 #### [facility] [address] [place], [address] Albumin/Globulin [Mass ratio] 1.1 {ratio} Normal 0.9-2.4 [facility] Comment on above: Performed By: #### L 500.4100, L500.4050, L501.9520, L100.0100, L506.0400, L506.1000 #### [facility] [address] [place], [address] ALK P 65 U/L Normal 45-117 [facility] Comment on above: Performed By: #### L 500.4100, L500.4050, L501.9520, L100.0100, L506.0400, L506.1000 #### [facility] [address] [place], [address] ALT [Catalytic activity/Vol] 27 U/L Normal 13-56 [facility] Comment on above: Performed By: #### L 500.4100, L500.4050, L501.9520, L100.0100, L506.0400, L506.1000 #### [facility] [address] [place], [address] AST [Catalytic activity/Vol] 19 U/L Normal 15-37 [facility] Comment on above: Performed By: #### L 500.4100, L500.4050, L501.9520, L100.0100, L506.0400, L506.1000 #### [facility] [address] [place], [address] Bilirubin [Mass/Vol] 0.60 mg/dL Normal 0.20-1.00 [facility] Comment on above: Result Comment: For patients on eltrombopag therapy, use of Dimension [place] TBIL is not recommended. Performed By: #### L 500.4100, L500.4050, L501.9520, L100.0100, L506.0400, L506.1000 #### [facility] [address] [place], [address] BUN/CRE 24.2 RATIO High 10-20 [facility] Comment on above: Performed By: #### L 500.4100, L500.4050, L501.9520, L100.0100, L506.0400, L506.1000 #### [facility] [address] [place], [address] CA,Total 9.0 mg/dL Normal 8.5-10.1 [facility] Comment on above: Performed By: #### L 500.4100, L500.4050, L501.9520, L100.0100, L506.0400, L506.1000 #### [facility] [address] [place], [address] Chloride [Moles/Vol] 107 mmol/L Normal 98-107 [facility] Comment on above: Performed By: #### L 500.4100, L500.4050, L501.9520, L100.0100, L506.0400, L506.1000 #### [facility] [address] [place], [address] CO2 [Moles/Vol] 29.0 mmol/L Normal 21.0-32.0 [facility] Comment on above: Performed By: #### L 500.4100, L500.4050, L501.9520, L100.0100, L506.0400, L506.1000 #### [facility] [address] [place], [address] Creatinine [Mass/Vol] 0.74 mg/dL Normal 0.55-1.02 [facility] Comment on above: Result Comment: The validity of the calculated GFR GFRAA in patients over 70 years has not been determined. Clinical correlation is essential. Performed By: #### L 500.4100, L500.4050, L501.9520, L100.0100, L506.0400, L506.1000 #### [facility] [address] [place], [address] EST GFR - AA 104 mL/min Normal >60 [facility] Comment on above: Result Comment: Afri can Mongolian GFR Calc Performed By: #### L 500.4100, L500.4050, L501.9520, L100.0100, L506.0400, L506.1000 #### [facility] [address] [place], [address] GAP 7 Normal 5-15 [facility] Comment on above: Performed By: #### L 500.4100, L500.4050, L501.9520, L100.0100, L506.0400, L506.1000 #### [facility] [address] [place], [address] GFR/1.73 sq M.predicted among non-blacks MDRD (S/P/Bld) [Vol rate/Area] 86 mL/min/{1.73_m2} Normal >60 [facility] Comment on above: Result Comment: Non- GFR Calc Performed By: #### L 500.4100, L500.4050, L501.9520, L100.0100, L506.0400, L506.1000 #### [facility] [address] [place], [address] Globulin (S) [Mass/Vol] 3.3 g/dL Normal 2.2-4.2 [facility] Comment on above: Performed By: #### L 500.4100, L500.4050, L501.9520, L100.0100, L506.0400, L506.1000 #### [facility] [address] [place], [address] Glucose [Mass/Vol] 95 mg/dL Normal 74-106 [facility] Comment on above: Performed By: #### L 500.4100, L500.4050, L501.9520, L100.0100, L506.0400, L506.1000 #### [facility] [address] [place], [address] Potassium [Moles/Vol] 3.5 mmol/L Normal 3.5-5.1 [facility] Comment on above: Performed By: #### L 500.4100, L500.4050, L501.9520, L100.0100, L506.0400, L506.1000 #### [facility] [address] [place], [address] Sodium [Moles/Vol] 143 mmol/L Normal 136-145 [facility] Comment on above: Performed By: #### L 500.4100, L500.4050, L501.9520, L100.0100, L506.0400, L506.1000 #### [facility] [address] [place], [address] T PROT 6.9 g/dL Normal 6.4-8.2 [facility] Comment on above: Performed By: #### L 500.4100, L500.4050, L501.9520, L100.0100, L506.0400, L506.1000 #### [facility] [address] [place], [address] Urea nitrogen [Mass/Vol] 18 mg/dL Normal 7-18 [facility] Comment on above: Performed By: #### L 500.4100, L500.4050, L501.9520, L100.0100, L506.0400, L506.1000 #### [facility] [address] [place], [address] Endocrinology Visit Reporton 06-28-2024 Endocrinology Visit Report [facility] [address] [place], [place] [address] OFFICE VISIT Date of Service: 06/28/24 MR#: [id number] Acct: [id number] Name: VANESSA DE LA PAZ Edilberto Rep #: [id number] : 1970 Provider: Cameron Vergara Age/Sex: 53/F Location: [facility] Status: Signed Intake Vital Signs 06/30/23 09:16 06/28/24 08:06 Height 5 ft 6 in 5 ft 6 in Weight: 272 lb 4 oz 276 lb BMI 43.9 44.5 BP 136/86 H 120/82 H Blood Pressure Location Rt brachial Lt brachial Position Sitting Sitting Respiration 18 Pulse 72 54 L Pulse Source Monitor Monitor Temp 98.2 F Temp Source Temporal Pulse Oximetry (%) 97 95 Oxygen Delivery Method room air room air Intake Visit Reasons: 1 Y FU Chief Complaint: Hypothyroidism [employer] Shingle Inspector Required: No Accompanied by: Self Is patient in pain?: Yes (Rt Knee) Pain scale (1-10): 3 Allergies codeine Adverse Reaction (Severe, Verified 06/28/24 08:08) Vomiting Medications ???Medication ???Instructions ???Recorded ???Confirmed ???Type calcium carbonate 500 mg PO DAILY@0800 PRN THYROID 07/11/19 06/28/24 History ergocalciferol (vitamin D2) 1,250 50,000 unit PO .twice a month #6 01/23/23 06/28/24 Rx mcg (50,000 unit) capsule caps levothyroxine 150 mcg tablet 150 mcg PO DAILY #90 tabs 04/13/24 06/28/24 Rx hydrochlorothiazide 25 mg tablet 25 mg PO DAILY #90 tabs 06/28/24 06/28/24 Rx metoprolol succinate 25 mg 25 mg PO DAILY #90 tabs 06/28/24 06/28/24 Rx tablet,extended release 24 hr PFSH Medical History Hypokalemia Vitamin D deficiency PORT REMOVAL Thyroid cancer Oral candidiasis DLBCL (diffuse large B cell lymphoma) Thyroid mass Acquired hypothyroidism Hypokalemia Vitamin deficiency Malaise and fatigue Iron deficiency Hypercalcemia Esophageal reflux Lactic acidosis Morbid obesity with BMI of 40.0-44.9, adult Thyroid mass Acute respiratory failure with hypoxia Hypothyroidism Hypertension Severe sepsis Community acquired pneumonia Surgical History History of reversal of tubal ligation Status post tubal ligation History of tubal ligation History of parathyroidectomy History of thyroidectomy, total Family History Grandmother No problems noted. Father Diabetes Mother Heart disease Lupus Social History Smoking Status: Never smoker alcohol intake: never substance use type: does not use what type of physical activity do you participate in: walking frequency: 1-2 times per week HPI HPI Chief Complaint: Hypothyroidism Details: VANESSA DE LA PAZ, is a 53 F who presents to the office today for follow up. She had thyroidectomy due to lymphoma. She is taking levothyroxine. She states she has been under a lot of stress. She has 2 adopted daughters. One of them has been in [facility] and an inpatient psychiatric facility. She has hypertension. She does not see a PCP. She declines bone density and mammograms. ROS Const Constitutional: Positive for fatigue; No anorexia, excessive sweating, malaise, night sweats, weight change or change in appetite Eyes Eyes: No change in vision ENT ENT: No hearing loss, nasal congestion or difficulty swallowing Cardio Cardiology: No chest pain at rest, excessive sweating, shortness of breath, dyspnea on exertion, irregular heart rhythm or palpitations Musc Musculoskeletal: No abnormal gait, joint pain, numbness or tingling Neuro Neurology: No abnormal gait, memory loss, numbness or tingling Psych Psychiatric: No change in appetite, No memory loss, No Thoughts of harming yourself/Others and Positive for other (stress) Resp Respiratory: No cough, chest congestion or shortness of breath Gastro GI: No abdominal pain, constipation, diarrhea or difficulty swallowing Genitourinary-Female: No burning urination Skin Skin: No hair loss in leg, itchy eyes, rash or skin ulcer Endo Endocrine: Positive for fatigue; No excessive sweating or weight change Aller/Imm Allergy/Immunologic: No itchy eyes Exam Const General: cooperative, healthy appearing, comfortable, no acute distress, well developed and not cushingoid Nutritional Appearance: well nourished and obese Orientation: alert, awake and oriented x3 HENMT Head: normal to inspection Ears: hearing grossly normal bilaterally Nose: external nose normal Mouth: oral mucosae normal Eyes General: appearance normal, both eyes and all related structures Alignment and Position: alignment normal Periorbital: periorbital findings normal Eyelids: eyelids normal Conjunctivae: conjunctivae normal Neck Neck: n (more content not included)... Normal [facility] Lipid Profileon 06-28-2024 Cholesterol [Mass/Vol] 180 mg/dL Normal 200 [facility] Comment on above: Result Comment: <200 mg/dL Desirable 200-240 mg/dL Borderline >240 mg/dL High Risk Performed By: #### L 500.4100, L500.4050, L501.9520, L100.0100, L506.0400, L506.1000 #### [facility] [address] [place], [address] Cholesterol in HDL [Mass/Vol] 42 mg/dL Normal [facility] Comment on above: Result Comment: The drugs N-Acetylcysteine and Metamizole may falsely depress this assay. Reference Range HDL <40 mg/dL Low HDL Cholesterol HDL >or= 60 mg/dL High HDL Cholesterol Performed By: #### L 500.4100, L500.4050, L501.9520, L100.0100, L506.0400, L506.1000 #### [facility] [address] [place], [address] Cholesterol in LDL [Mass/Vol] 103 mg/dL Normal 0-130 [facility] Comment on above: Performed By: #### L 500.4100, L500.4050, L501.9520, L100.0100, L506.0400, L506.1000 #### [facility] [address] [place], [address] Cholesterol in VLDL [Mass/Vol] 35 mg/dL Normal 5-40 [facility] Comment on above: Performed By: #### L 500.4100, L500.4050, L501.9520, L100.0100, L506.0400, L506.1000 #### [facility] [address] [place], [address] Triglyceride [Mass/Vol] 176 mg/dL Normal [facility] Comment on above: Result Comment: The drugs N-Acetylcysteine and Metamizole may falsely depress this assay. Serum Triglycerides Reference Interval Normal <150 mg/dL Borderline high 150 - 199 mg/dL High 200 - 499 mg/dL Very High > or = 500 mg/dL Performed By: #### L 500.4100, L500.4050, L501.9520, L100.0100, L506.0400, L506.1000 #### [facility] [address] [place], [address] T4 Free Directon 06-28-2024 T4 FREE DIRECT 1.55 ng/dL High 0.76-1.46 [facility] Comment on above: Performed By: #### L 500.4100, L500.4050, L501.9520, L100.0100, L506.0400, L506.1000 #### [facility] [address] [place], [address] Thyroid Stim Hormone (TSH)on 06-28-2024 TSH 0.32 uIU/mL Low 0.358-3.74 [facility] Comment on above: Performed By: #### L 500.4100, L500.4050, L501.9520, L100.0100, L506.0400, L506.1000 #### [facility] [address] [place], [address] Vitamin D,25 Hydroxyon 06-28 Vitamin D 25-OH 48.8 ng/mL Normal [facility] Comment on above: Result Comment: Sima min D 25(OH) Status Range Deficiency <20 ng/mL (50nmol/L) Insufficiency 20 - 30 ng/mL (50 - 75 nmol/L) Sufficiency 30 - 100 ng/mL (75 - 250 nmol/L) Toxicity >100 ng/mL (>250 nmol/L) Performed By: #### L 500.4100, L500.4050, L501.9520, L100.0100, L506.0400, L506.1000 #### [facility] [address] [place], [address] Laboratory - Chemistry and C hemistry - challengeOrdered By: Anthony Armstrong on 09-04-2023 Free T4 [Mass/Vol] 1.52 ng/dL 0.76-1.46 [facility] No Panel InformationOrdered By: Anthony Armstrong on 09-04-2023 Thyroid Stimulating Hormone (TSH) 0.28 uIU/mL 0.358-3.74 [facility] Absolute lymphocyte countOrd ered By: Dr. Waite on 09-15-2022 Lymphocytes Auto (Unsp spec) [#/Vol] 1.82 10*3/uL 0.83-4.51 [facility] Basophil percentageOrdered B y: Dr. Waite on 09-15-2022 Basophils/100 WBC (Bld) 1.0 % 0-1 [facility] Bilirubin [Mass/Vol] 0.40 mg/dL 0.20-1.00 [facility] Comment on above: For patients on eltr ombopag therapy, use of Dimension [place] TBIL is not recommended. Chloride [Moles/Vol] 105 mmol/L 98-107 [facility] Eosinophils/100 WBC (Bld) 5.1 % 0-5 [facility] Glucose [Mass/Vol] 97 mg/dL 74-106 [facility] Neutrophils (Bld) [#/Vol] 3.3 10*3/uL 2.0-7.7 [facility] Neutrophils/100 WBC (Bld) 56.0 % 47-70 [facility] Potassium [Moles/Vol] 3.1 mmol/L 3.5-5.1 [facility] Protein [Mass/Vol] 7.1 g/dL 6.4-8.2 [facility] Sodium [Moles/Vol] 141 mmol/L 136-145 [facility] WBC (Bld) [#/Vol] 5.9 10*3/uL 4.4-11.0 [facility] Blood erythrocytes count (nu mber/volume)Ordered By: Dr. Waite on 09-15-2022 RBC (Bld) [#/Vol] 4.64 10*6/uL 4.2-5.4 [facility] Blood hemoglobin measurement (mass/volume)Ordered By: Dr. Waite on 09-15-2022 Hemoglobin (Bld) [Mass/Vol] 12.9 g/dL 12.0-15.0 [facility] Blood lymphocytes/100 leukoc ytesOrdered By: Dr. Waite on 09-15-2022 Lymphocytes/100 WBC (Bld) 31.0 % 19-41 [facility] Blood monocytes/100 leukocyt esOrdered By: Dr. Waite on 09-15-2022 Monocytes/100 WBC (Bld) 6.6 % 0-10 [facility] Blood platelet mean volumeOr dered By: Dr. Waite on 09-15-2022 Platelet mean volume (Bld) [Entitic vol] 8.7 fL 6.2-12.0 [facility] Determination of erythrocyte mean corpuscular volume (MCV)Ordered By: Dr. Waite on 09-15-2022 MCV (RBC) [Entitic vol] 85.1 fL 81-99 [facility] Hematocrit Auto (Bld) [Volum e fraction]Ordered By: Dr. Waite on 09-15-2022 Hematocrit (Bld) [Volume fraction] 39.5 % 37-47 [facility] Laboratory - Chemistry and C hemistry - challengeOrdered By: Dr. Waite on 09-15-2022 ALP [Catalytic activity/Vol] 70 U/L 45-117 [facility] ALT [Catalytic activity/Vol] 26 U/L 13-56 [facility] CO2 [Moles/Vol] 30.0 mmol/L 21.0-32.0 [facility] Globulin (S) [Mass/Vol] 3.5 g/dL 2.2-4.2 [facility] Urea nitrogen/Creatinine [Mass ratio] 19.3 mg/mg 10-20 [facility] Laboratory - Chemistry and C hemistry - challengeOrdered By: Dr. Armstrong on 09-15-2022 Free T4 [Mass/Vol] 1.59 ng/dL 0.76-1.46 [facility] Laboratory - Hematology and Cell countsOrdered By: Dr. Waite on 09-15-2022 Erythrocyte distribution width (RBC) [Entitic vol] 43.2 fL 35.1-43.9 [facility] Erythrocyte distribution width (RBC) [Ratio] 14.0 % 11.6-14.6 [facility] Immature granulocytes/100 WBC (Bld) 0.300 % 0.0-0.9 [facility] Comment on above: IG% - Immature Granu locytes (promyelocytes, myelocytes and metamyelocytes) > 1% indicates that a LEFT SHIFT is Present. MCH (RBC) [Entitic mass] 27.8 pg 27.0-32.0 [facility] Nucleated RBC/100 WBC (Bld) [Ratio] 0 % 0-5 [facility] MCHC Auto (RBC) [Mass/Vol]Or dered By: Dr. Waite on 09-15-2022 MCHC (RBC) [Mass/Vol] 32.7 g/dL 32-36 [facility] No Panel InformationOrdered By: Dr. Waite on 09-15-2022 Estimated Creatinine Clearance Calc 80.20 ml/min [facility] Estimated GFR (MDRD) Amer 108 mL/min >60 [facility] Comment on above: GFR Calc Estimated GFR (MDRD) Non-Af Amer 89 mL/min >60 [facility] Comment on above: Non- GFR Calc No Panel InformationOrdered By: Dr. Armstrong on 09-15-2022 Thyroid Stimulating Hormone (TSH) 0.68 uIU/mL 0.358-3.74 [facility] Vitamin D 25-Hydroxy 56.1 ng/mL [facility] Comment on above: Vitamin D 25(OH) Sta tus Range Deficiency <20 ng/mL (50nmol/L) Insufficiency 20 - 30 ng/mL (50 - 75 nmol/L) Sufficiency 30 - 100 ng/mL (75 - 250 nmol/L) Toxicity >100 ng/mL (>250 nmol/L) Platelets bldOrdered By: Dr. Waite on 09-15-2022 Platelets (Bld) [#/Vol] 323 10*3/uL 150-450 [facility] Serum or plasma albumin arthur urement (mass/volume)Ordered By: Dr. Waite on 09-15-2022 Albumin [Mass/Vol] 3.6 g/dL 3.2-5.0 [facility] Serum or plasma albumin/glob ulin mass ratioOrdered By: Dr. Waite on 09-15-2022 Albumin/Globulin [Mass ratio] 1.0 {ratio} 0.9-2.4 [facility] Serum or plasma calcium arthur urement (mass/volume)Ordered By: Dr. Waite on 09-15-2022 Calcium [Mass/Vol] 9.0 mg/dL 8.5-10.1 [facility] Serum or plasma creatinine m easurement (mass/volume)Ordered By: Dr. Waite on 09-15-2022 Creatinine [Mass/Vol] 0.73 mg/dL 0.55-1.02 [facility] Comment on above: The validity of the calculated GFR & GFRAA in patients over 70 years has not been determined. Clinical correlation is essential. Serum or plasma urea nitroge n measurement (mass/volume)Ordered By: Dr. Waite on 09-15-2022 Urea nitrogen [Mass/Vol] 14 mg/dL 7-18 [facility] Thin prep Papanicolaou smear with manual screeningOrdered By: Dr. Waite on 09-15-2022 Thin prep Papanicolaou smear with manual screening 16 U/L 15-37 [facility] Thin prep Papanicolaou smear with manual screening 6 5-15 [facility] Thin prep Papanicolaou smear with manual screening 215 U/L 84-246 [facility] Absolute lymphocyte counton 05-12-2022 Lymphocytes Auto (Unsp spec) [#/Vol] 1.15 10*3/uL 0.83-4.51 [facility] Work Phone: Basophil percentageon 2021 Basophils/100 WBC (Bld) 0.5 % 0-1 [facility] Work Phone: Bilirubin [Mass/Vol] 0.50 mg/dL 0.20-1.00 [facility] Work Phone: Comment on above: For patients on eltr ombopag therapy, use of Dimension [place] TBIL is not recommended. Chloride [Moles/Vol] 107 mmol/L 98-107 [facility] Work Phone: [phone] Eosinophils/100 WBC (Bld) 8.4 % 0-5 [facility] Work Phone: [phone] Glucose [Mass/Vol] 90 mg/dL 74-106 [facility] Work Phone: [phone] Neutrophils (Bld) [#/Vol] 2.3 10*3/uL 2.0-7.7 [facility] Work Phone: Neutrophils/100 WBC (Bld) 56.4 % 47-70 [facility] Work Phone: Potassium [Moles/Vol] 3.6 mmol/L 3.5-5.1 [facility] Work Phone: Protein [Mass/Vol] 6.5 g/dL 6.4-8.2 [facility] Work Phone: Sodium [Moles/Vol] 140 mmol/L 136-145 [facility] Work Phone: WBC (Bld) [#/Vol] 4.0 10*3/uL 4.4-11.0 [facility] Work Phone: Basophil percentage < 0.9 mg/dL 0.55-1.02 [facility] Work Phone: Blood erythrocytes count (nu mber/volume)on 05-12-2022 RBC (Bld) [#/Vol] 4.48 10*6/uL 4.2-5.4 [facility] Work Phone: Blood hemoglobin measurement (mass/volume)on 05-12-2022 Hemoglobin (Bld) [Mass/Vol] 12.6 g/dL 12.0-15.0 [facility] Work Phone: Blood lymphocytes/100 leukoc yteson 05-12-2022 Lymphocytes/100 WBC (Bld) 28.5 % 19-41 [facility] Work Phone: Blood monocytes/100 leukocyt eson 05-12-2022 Monocytes/100 WBC (Bld) 6.0 % 0-10 [facility] Work Phone: Blood platelet mean volumeon 05-12-2022 Platelet mean volume (Bld) [Entitic vol] 8.8 fL 6.2-12.0 [facility] Work Phone: Determination of erythrocyte mean corpuscular volume (MCV)on 05-12-2022 MCV (RBC) [Entitic vol] 85.9 fL 81-99 [facility] Work Phone: Hematocrit Auto (Bld) [Volum e fraction]on 05-12-2022 Hematocrit (Bld) [Volume fraction] 38.5 % 37-47 [facility] Work Phone: Laboratory - Chemistry and C hemistry - challengeon 05-12-2022 ALP [Catalytic activity/Vol] 59 U/L 45-117 [facility] Work Phone: [phone] ALT [Catalytic activity/Vol] 32 U/L 13-56 [facility] Work Phone: [phone] CO2 [Moles/Vol] 29.0 mmol/L 21.0-32.0 [facility] Work Phone: [phone] Globulin (S) [Mass/Vol] 2.9 g/dL 2.2-4.2 [facility] Work Phone: Urea nitrogen/Creatinine [Mass ratio] 26.1 mg/mg 09-11 [facility] Work Phone: [phone] Laboratory - Hematology and Cell countson 05-12-2022 Erythrocyte distribution width (RBC) [Entitic vol] 46.0 fL 35.1-43.9 [facility] Work Phone: [phone] Erythrocyte distribution width (RBC) [Ratio] 14.6 % 11.6-14.6 [facility] Work Phone: Immature granulocytes/100 WBC (Bld) 0.200 % 0.0-0.9 [facility] Work Phone: [phone] Comment on above: IG% - Immature Granu locytes (promyelocytes, myelocytes and metamyelocytes) > 1% indicates that a LEFT SHIFT is Present. MCH (RBC) [Entitic mass] 28.1 pg 27.0-32.0 [facility] Work Phone: [phone] Nucleated RBC/100 WBC (Bld) [Ratio] 0 % 0-5 [facility] Work Phone: [phone] MCHC Auto (RBC) [Mass/Vol]on 05-12-2022 MCHC (RBC) [Mass/Vol] 32.7 g/dL 32-36 [facility] Work Phone: No Panel Informationon 05-12 Estimated Creatinine Clearance Calc 81.12 ml/min [facility] Work Phone: Estimated GFR (MDRD) Amer 108 mL/min >60 [facility] Work Phone: Comment on above: GFR Calc Estimated GFR (MDRD) Non-Af Amer 89 mL/min >60 [facility] Work Phone: Comment on above: Non- GFR Calc Bedside Estimated GFR (eGFR) > 60.0000 mL/min >60 [facility] Work Phone: Platelets bldon 05-12-2022 Platelets (Bld) [#/Vol] 260 10*3/uL 150-450 [facility] Work Phone: Serum or plasma albumin arthur urement (mass/volume)on 05-12-2022 Albumin [Mass/Vol] 3.6 g/dL 3.2-5.0 [facility] Work Phone: Serum or plasma albumin/glob ulin mass ratioon 05-12-2022 Albumin/Globulin [Mass ratio] 1.2 {ratio} 0.9-2.4 [facility] Work Phone: Serum or plasma calcium arthur urement (mass/volume)on 05-12-2022 Calcium [Mass/Vol] 8.8 mg/dL 8.5-10.1 [facility] Work Phone: Serum or plasma creatinine m easurement (mass/volume)on 05-12-2022 Creatinine [Mass/Vol] 0.73 mg/dL 0.55-1.02 [facility] Work Phone: Comment on above: The validity of the calculated GFR & GFRAA in patients over 70 years has not been determined. Clinical correlation is essential. Serum or plasma urea nitroge n measurement (mass/volume)on 05-12-2022 Urea nitrogen [Mass/Vol] 19 mg/dL 7-18 [facility] Work Phone: Thin prep Papanicolaou smear with manual screeningon 05-12-2022 Thin prep Papanicolaou smear with manual screening 18 U/L 15-37 [facility] Work Phone: Thin prep Papanicolaou smear with manual screening 4 5-15 [facility] Work Phone: Thin prep Papanicolaou smear with manual screening 214 U/L 84-246 [facility] Work Phone: Laboratory - Chemistry and C hemistry - challengeon 02-05-2022 Free T4 [Mass/Vol] 1.40 ng/dL 0.76-1.46 [facility] Work Phone: No Panel Informationon 02-05 Thyroid Stimulating Hormone (TSH) 0.83 uIU/mL 0.358-3.74 [facility] Work Phone: Vitamin D 25-Hydroxy 61.6 ng/mL [facility] Work Phone: Comment on above: Vitamin D 25(OH) Sta tus Range Deficiency <20 ng/mL (50nmol/L) Insufficiency 20 - 30 ng/mL (50 - 75 nmol/L) Sufficiency 30 - 100 ng/mL (75 - 250 nmol/L) Toxicity >100 ng/mL (>250 nmol/L) Basophil percentageon 2021 Creatinine [Mass/Vol] 0.8 mg/dL 0.55-1.02 [facility] Work Phone: No Panel Informationon 01-28 Bedside Estimated GFR (eGFR) > 60.0000 mL/min >60 [facility] Work Phone: Blood platelet adequacy dete ction by light microscopyon 09-10-2020 Platelets LM Ql (Bld) ADEQUATE ADEQ [facility] No Panel Informationon 09-10 Differential Comment See comment [facility] Comment on above: LYMPHOPENIA NOTED RBC morphologyon 09-10-2020 RBC morphology finding Nom (Bld) NORM C+C NORMAL NORM C&C [facility] Review by pathologiston 08-23 Pathologist review Candido (Unsp spec) [Interp] Reviewed [facility] Comment on above: Previous reported re sult: Andria mcgowan Edited by: MARY on 09/11/20:1303Leukopenia.Clinical correlation necessary.Rush Mckenna M.D. 09/11/20 AMENDED REPORT 09/11/20 1303 PATH REV previously reported as: March roslyn Basophil percentageon 2018 Eosinophils/100 WBC (Bld) 3 % 0-5 [facility] Laboratory - Hematology and Cell countson 11-10-2019 Lymphocytes/100 WBC (Bld) 11 % 19-41 [facility] Metamyelocytes/100 WBC (Bld) 4 % 0-1 [facility] Monocytes/100 WBC (Bld) 14 % 0-10 [facility] Myelocytes/100 WBC (Bld) 3 % 0-0 [facility] Neutrophils/100 WBC (Bld) 65 % 47-70 [facility] Total cell counton 9 Cells counted Molgen (Bld/Tiss) [#] 100 MANUAL DIFF [facility] No Panel Informationon 10-24 Promyelocytes % 2 0-0 [facility] No Panel Informationon 09-29 Blast Cells % 1 % 0-0 [facility] Iron measurement (mass/mass) on 08-29-2019 Iron (Unsp spec) [Mass/Mass] 56 ug/dL 50-170 [facility] Laboratory - Chemistry and C hemistry - challengeon 08-29-2019 Cobalamin (Vitamin B12) [Mass/Vol] 1093 pg/mL 211-911 [facility] No Panel Informationon 08-29 Total Iron Binding Capacity 298 ug/dL 250-450 [facility] Serum or plasma ferritin rosalva surement (mass/volume)on 08-29-2019 Ferritin [Mass/Vol] 42 ng/mL 8-252 [facility] Serum or plasma iron saturat ion measurement (mass fraction)on 08-29-2019 Iron saturation [Mass fraction] 18.8 % 15.0-55.0 [facility] Blood polychromasia detectio n by light microscopyon 08-18-2019 Polychromasia LM Ql (Bld) RARE [facility] Hypochromatic red blood cell detectionon 08-18-2019 Hypochromia Ql (Bld) RARE [facility] Laboratory - Hematology and Cell countson 08-18-2019 Band form neutrophils/100 WBC (Bld) 5 % 0-5 [facility] Erythrocyte basophilic stipp ling detectionon 07-28-2019 Basophilic stippling LM Ql (Bld) RARE [facility] Laboratory - Chemistry and C hemistry - challengeon 07-05-2019 HCG ( test) Ql (U) Negative [facility] Comment on above: Very dilute urine sp ecimens, as indicated by a low specificgravity, may not contain herbicide service sales representative levels of hCG. If is still suspected, a first morning urinespecimen should be collected 48 hours later and tested. No Panel Informationon 07-05 Hepatitis B Core IgM Antibody Negative Negative [facility] Hepatitis B Surface Antibody Non-Reactive . [facility] Comment on above: Non Reactive: Incons istent with immunity, less than 10 mIU/mL Reactive: Consistent with immunity, greater than 9.9 mIU/mL Hepatitis B Surface Antigen Negative Negative [facility] Hepatitis Be Antibody Negative Negative [facility] Hepatitis Be Antigen Negative Negative [facility] Hepatitis C Antibody Confirmation <0.1 s/co ratio 0.0-0.9 [facility] Hepatitis C Confirmation Comment 1 Comment . [facility] Comment on above: Non reactive HCV ant ibody screen is consistent with no HCVinfection, unless recent infection is suspected or otherevidence exists to indicate HCV infection.Performed at: [email or web address] [id number] Director: Angus Nobles PhD, Phone: [phone] Serum hepatitis B virus core antibody detectionon 07-05-2019 HBV core Ab Ql (S) Negative Negative [facility] Vital Signs Date Time Vital Sign Value Performing Clinician Anne ludwig 06-06-2025 09:26-0400 Body height 167.[address] Analia Hancock MD Work Phone: [facility] 06-06-2025 09:26-0400 Body mass index (BMI) [Ratio] 44.1 kg/m2 Dr. Analia Hancock MD Work Phone: [facility] 06-06-2025 09:26-0400 Body weight [address] Analia Hancock MD Work Phone: [facility] 06-06-2025 09:26-0400 Diastolic blood pressure 93 mm[Hg] Dr. Analia Hancock MD Work Phone: [facility] 06-06-2025 09:26-0400 Heart rate 62 /min Dr. Analia Hancock MD Work Phone: [facility] 06-06-2025 09:26-0400 SaO2% (BldA) [Mass fraction] 96 % Dr. Analia Hancock MD Work Phone: [facility] 06-06-2025 09:26-0400 Systolic blood pressure 154 mm[Hg] Dr. Analia Hancock MD Work Phone: [facility] 06-30-2023 09:16-0400 Body height 167.[address] Anthony Armstrong Work Phone: [facility] 06-30-2023 09:16-0400 Body mass index (BMI) [Ratio] 43.9 kg/m2 Dr. Anthony Armstrong Work Phone: [facility] 06-30-2023 09:16-0400 Body temperature 98.2 [degF] Dr. Anthony Armstrong Work Phone: [facility] 06-30-2023 09:16-0400 Body weight 123.[address] Anthony Armstrong Work Phone: [facility] 06-30-2023 09:16-0400 Diastolic blood pressure 86 mm[Hg] Dr. Anthony Armstrong Work Phone: [facility] 06-30-2023 09:16-0400 Heart rate 72 /min Dr. Anthony Armstrong Work Phone: [facility] 06-30-2023 09:16-0400 Respiratory rate 18 /min Dr. Anthony Armstrong Work Phone: [facility] 06-30-2023 09:16-0400 SaO2% (BldA) [Mass fraction] 97 % Dr. Anthony Armstrong Work Phone: [facility] 06-30-2023 09:16-0400 Systolic blood pressure 136 mm[Hg] Dr. Anthony Armstrong Work Phone: [facility] 09-15-2022 11:21-0400 Body height 167.[address] Anthony Armstrong Work Phone: [facility] 09-15-2022 11:21-0400 Body mass index (BMI) [Ratio] 42.5 kg/m2 Dr. Anthony Armstrong Work Phone: [facility] 09-15-2022 11:21-0400 Body temperature 98 [degF] Dr. Anthony Armstrong Work Phone: [facility] 09-15-2022 11:21-0400 Body weight 119.[address] Anthony Armstrong Work Phone: [facility] 09-15-2022 11:21-0400 Diastolic blood pressure 77 mm[Hg] Dr. Anthony Armstrong Work Phone: [facility] 09-15-2022 11:21-0400 Heart rate 59 /min Dr. Anthony Armstrong Work Phone: [facility] 09-15-2022 11:21-0400 Respiratory rate 18 /min Dr. Anthony Armstrong Work Phone: [facility] 09-15-2022 11:21-0400 SaO2% (BldA) [Mass fraction] 96 % Dr. Anthony Armstrong Work Phone: [facility] 09-15-2022 11:21-0400 Systolic blood pressure 114 mm[Hg] Dr. Anthony Armstrong Work Phone: [facility] 02-17-2022 10:02-0400 Body height 167.[address] Anthony Armstrong Work Phone: [facility] Work Phone: 02-17-2022 10:02-0400 Body mass index (BMI) [Ratio] 45.1 kg/m2 Dr. Anthony Armstrong Work Phone: [facility] Work Phone: 02-17-2022 10:02-0400 Body temperature 98 [degF] Dr. Anthony Armstrong Work Phone: [facility] Work Phone: 02-17-2022 10:02-0400 Body weight 126.[address] Anthony Armstrong Work Phone: [facility] Work Phone: 02-17-2022 10:02-0400 Diastolic blood pressure 85 mm[Hg] Dr. Anthony Armstrong Work Phone: [facility] Work Phone: 02-17-2022 10:02-0400 Heart rate 73 /min Dr. Anthony Armstrong Work Phone: [facility] Work Phone: 02-17-2022 10:02-0400 Respiratory rate 16 /min Dr. Anthony Armstrong Work Phone: [facility] Work Phone: 02-17-2022 10:02-0400 SaO2% (BldA) [Mass fraction] 99 % Dr. Anthoyn Armstrong Work Phone: [facility] Work Phone: 02-17-2022 10:02-0400 Systolic blood pressure 118 mm[Hg] Dr. Anthony Armstrong Work Phone: [facility] Work Phone: 02-05-2022 10:54-0400 Body mass index (BMI) [Ratio] 45.6 kg/m2 Dr. Anthony Armstrong Work Phone: [facility] Work Phone: 02-05-2022 10:54-0400 Body temperature 98.3 [degF] Dr. Anthony Armstrong Work Phone: [facility] Work Phone: 02-05-2022 10:54-0400 Body weight 128.[address] Anthony Armstrong Work Phone: [facility] Work Phone: 02-05-2022 10:54-0400 Diastolic blood pressure 89 mm[Hg] Dr. Anthony Armstrong Work Phone: [facility] Work Phone: 02-05-2022 10:54-0400 Heart rate 63 /min Dr. Anthony Armstrong Work Phone: [facility] Work Phone: 02-05-2022 10:54-0400 Respiratory rate 16 /min Dr. Anthony Armstrong Work Phone: [facility] Work Phone: 02-05-2022 10:54-0400 SaO2% (BldA) [Mass fraction] 96 % Dr. Anthony Armstrong Work Phone: [facility] Work Phone: 02-05-2022 10:54-0400 Systolic blood pressure 143 mm[Hg] Dr. Anthony Armstrong Work Phone: [facility] Work Phone: 03-06-2021 13:37-0400 Body mass index (BMI) [Ratio] 44.9 kg/m2 Dr. Anthony Armstrong Work Phone: [facility] 03-06-2021 13:37-0400 Body temperature 98.1 [degF] Dr. Anthony Armstrong Work Phone: [facility] 03-06-2021 13:37-0400 Body weight 124.[address] Anthony Armstrong Work Phone: [facility] 03-06-2021 13:37-0400 Diastolic blood pressure 74 mm[Hg] Dr. Anthony Armstrong Work Phone: [facility] 03-06-2021 13:37-0400 Heart rate 68 /min Dr. Anthony Armstrong Work Phone: [facility] 03-06-2021 13:37-0400 Respiratory rate 16 /min Dr. Anthony Armstrong Work Phone: [facility] 03-06-2021 13:37-0400 SaO2% (BldA) [Mass fraction] 98 % Dr. Anthony Armstrong Work Phone: [facility] 03-06-2021 13:37-0400 Systolic blood pressure 136 mm[Hg] Dr. Anthony Armstrong Work Phone: [facility] Encounters Encounter Date Encounter Type Care Provider Facility Start: 06-13-2025 End: 06-13-[address] Analia Hancock MD Work Phone: -[facility] Start: 06-13-2025 End: 06-13-[address] Anthony Armstrong MD -[facility] Start: 06-13-2025 End: 06-13-2025 ambulatory Analia Hancock Facility:[facility] Start: 06-06-2025 End: 06-06-[address] Anthony Armstrong MD -[facility] Work Phone: Start: 06-06-2025 End: 06-06-[address] Analia Hancock MD Work Phone: -[facility] Start: 01-12-[facility] Start: 11-29-2024 ambulatory Analia Hancock Facility :[facility] Start: 09-15-2024 End: 09-15-2024 ambulatory Analia Hancock Facility:[facility] Start: 06-28-2024 End: 06-28-2024 ambulatory Anthony Armstrong Facility:[facility] Start: 06-28-2024 End: 06-28-2024 ambulatory Anthony Bennet Facility:[facility] Start: 09-04-2023 End: 09-04-[address] Anthony Armstrong Work Phone: [facility] Work Phone: Start: 09-04-2023 End: 09-04-[address] Anthony Armstrong Work Phone: [facility]-Laboratory, [facility] Start: 06-30-2023 End: 06-30-[address] Anthony Armstrong Work Phone: [facility] Work Phone: Start: 12-09-2022 End: 12-09-[address] Anthony Armstrong Work Phone: [facility] Work Phone: Start: 12-09-2022 End: 12-09-[address] Anthony Armstrong Work Phone: [facility]-Outpatient Breast Imaging Start: 09-15-[address] Anthony Armstrong Work Phone: [facility] Start: 09-15-2022 End: 09-15-[address] Anthony Armstrong Work Phone: [facility] Start: 05-12-[address] Anthony Armstrong Work Phone: [facility] Start: 05-12-2022 End: 05-12-[address] Anthony Armstrong Work Phone: [facility]-Cat Scan, [facility] Start: 02-17-2022 End: 02-17-[address] Anthony Armstrong Work Phone: [facility] Start: 02-05-2022 End: 02-05-[address] Anthony Armstrong Work Phone: [facility] Start: 01-28-2022 End: 01-28-[address] Anthony Armstrong Work Phone: [facility], [facility] Procedures Date Procedure Procedure Detail Performing Clinician Start: 12-09-2022 Screening mammography D bob Armstrong Work Phone: Start: 05-12-2022 CT of soft tissues o f neck with contrast Dr. Anthony Armstrong Work Phone: Start: 02-12-2022 PET study for locali zation of tumor Dr. Anthony Armstrong Work Phone: Start: 01-28-2022 CT of chest and abdomen Dr. Anthony Armstrong Work Phone: Start: 01-28-2022 CT of soft tissues o f neck with contrast Dr. Anthony Armstrong Work Phone: Start: 12-05-2019 PET/CT Tumor Base -T high Subs Dr. Anthony Armstrong Work Phone: Start: 09-12-2019 PET/CT Tumor Base -T high Subs Dr. Anthony Armstrong Work Phone: Start: 07-11-2019 PET/CT Tumor Base -T high Init Dr. Anthony Armstrong Work Phone: Plan of Treatment Date Care Activity Detail Author CBC W Auto Differential panel - Blood [facility] Lactate dehydrogenase measurement [facility] PT Unspecified body region [facility] Work Phone: T4 free measurement [facility] Thyroid stimulating hormone measurement [facility] Payers Date Payer Category Payer Self-pay [id number] 2023 Medicaid [id number] Unknown [id number] Unknown [id number] Unknown [id number] [id number] [id number] Unknown [id number] [id number] [id number] Unknown [id number] [id number] [id number] Unknown [id number] 2.16.8 [id number] Unknown [id number] 2.16.8 [id number] Unknown [id number] 2.16.8 [id number] Unknown [id number] 2.16.8 [id number] Social History Date Type Detail Facility Start: 01-02-2022 End: 06-30-2023 Tobacco smoking status KSIS Unknown if ever smoked [facility] Start: 06-14-2019 None [facility] Start: 06-14-2019 Alone [facility] Start: 07-11-2019 Non-smoker [facility] Start: 1970 Sex Assigned At Female [facility] Start: 09-15-2024 Tobacco smoking stat us KSIS Never smoked tobacco (finding) [facility] Medical Equipment Procedure Code Equipment Code Equipment Origin al Text Equipment Identifier Dates Insertion, vascular access port PORT,6FR POWER PORT FDA Start: 07-14-2019 Insertion, vascular access port PORT,6FR POWER PORT FDA Start: 07-14-2019 Insertion, vascular access port PORT,6FR POWER PORT FDA Start: 07-14-2019 Insertion, vascular access port PORT,6FR POWER PORT FDA Start: 07-14-2019 Insertion, vascular access port PORT,6FR POWER PORT FDA Start: 07-14-2019 PORT,6FR POWER PORT FDA Start: 07-14-2019 PORT,6FR POWER PORT FDA Start: 07-14-2019 PORT,6FR POWER PORT FDA Start: 07-14-2019 PORT,6FR POWER PORT FDA Start: 07-14-2019 PORT,6FR POWER PORT FDA Start: 07-14-2019 Mental Status Date Assessment Result Facility 10-31-2019 Cognitive function Mood Description Appro priate [facility] Work Phone: Clinical Notes 07-24-2021 to 06-06-2025 Note Date & Type Note Facility 06-06-2025 Evaluation note Diagnosis Onset Date Resolution Hypertension chronic June 06, 025 9:26am Hypothyroidism chronic June 06, 2025 9:26am [facility] Work Phone: [phone]) 785-694407-15-2025 [facility] [address] [place] [address] OFFICE VISIT Date of Service: 06/06/25 MR#: [id number] Acct: [id number] Name: VANESSA DE LA PAZ Rep #: [id number] : 1970 Provider: Dr. Anthony Armstrong MD Age/Sex: 54/F [facility] Status: Signed Intake Vital Signs 09/15/24 09:19 06/06/25 09:26 Height 5 ft 6 in 5 ft 6 in Weight: 270 lb 273 lb 6 oz BMI 43.5 44.1 BP 138/84 H 154/93 H Blood Pressure Location Lt brachial Rt brachial Position Sitting Sitting Respiration 16 Pulse 69 62 Pulse Source Monitor Monitor Temp 97.3 F L Temp Source Temporal Pulse Oximetry (%) 99 96 Oxygen Delivery Method room air room air Intake Visit Reasons: 9 M FU Chief Complaint: Post surgical hypothyroidism Is patient in pain?: No Allergies codeine Adverse Reaction (Severe, Verified 06/06/25 09:27) Vomiting Medications ?Medication ?Instructions ?Recorded ?Confirmed ?Type calcium carbonate 500 mg PO DAILY@0800 PRN THY ROID 07/11/19 06/06/25 History ergocalciferol (vitamin D2) 1,250 50,000 unit PO .twic e a month #6 01/23/23 06/06/25 Rx mcg (50,000 unit) capsule caps levothyroxine 150 mcg tablet 150 mcg PO DAILY #90 tabs 06/28/24 06/06/25 Rx hydrochlorothiazide 25 mg tablet 25 mg PO DAILY #90 ta bs 04/05/25 06/06/25 Rx metoprolol succinate 25 mg 25 mg PO DAILY #90 tabs 06/06/25 Rx tablet,extended release 24 hr PFSH Medical History (Updated 06/06/25 @ 09:[address] Anthony Armstrong MD) Knee pain Hypokalemia Vitamin D deficiency Thyroid cancer Oral candidiasis DLBCL (diffuse large B cell lymphoma) Thyroid mass Acquired hypothyroidism Hypokalemia Vitamin deficiency Malaise and fatigue Iron deficiency Hypercalcemia Esophageal reflux Lactic acidosis Morbid obesity with BMI of 40.0-44.9, adult Acute respiratory failure with hypoxia Hypothyroidism Hypertension Severe sepsis Community acquired pneumonia Surgical History PORT REMOVAL History of reversal of tubal ligation History of tubal ligation History of parathyroidectomy History of thyroidectomy, total Family History Grandmother Heart disease Father Diabetes Mother Heart disease Lupus Sister Thyroid disorder Aunt Thyroid disorder Social History household members: children current occupational status: employed current occupation: works at [employer] Smoking Status: Never smoker alcohol intake: never substance use type: does not use what type of physical activity do you participate in: walking frequency: 1-2 times per week do you feel safe at home: Yes HPI HPI Chief Complaint: Post surgical hypothyroidism Details: VANESSA DE LA PAZ, is a 54 F who presents to the office today for follow up. She presented with thyroid mass in 2019. She was diagnosed with lymphoma. She was treated by Dr. Kidd. She is doing well. Family life is calmer. She is taking levothyroxine 150 mcg daily. She is due for labs. She has HTN and BP is high today. Son is a engineering model maker. ROS Const Constitutional: No fatigue, weight change or change in appetite Eyes Eyes: No change in vision ENT ENT: No dizziness/vertigo or difficulty swallowing Cardio Cardiology: No chest pain at rest, chest pain with exertion, shortness of breathor palpitations Musc Musculoskeletal: No abnormal gait, joint pain, numbness or tingling Neuro Neurology: No abnormal gait, memory loss, numbness or tingling Psych Psychiatric: No change in appetite, No memory loss and No Thoughts of harming yourself/Others Resp Respiratory: No cough, chest congestion or shortness of breath Gastro GI: No abdominal pain, constipation, diarrhea or difficulty swallowing Genitourinary-Female: No burning urination Skin Skin: No itchy eyes or wounds Endo Endocrine: No fatigue or weight change Aller/Imm Allergy/Immunologic: No itchy eyes Exam Const General: cooperative, healthy appearing, comfortable, no acute distress, well developed and not cushingoid Nutritional Appearance: well nourished and obese Orientation: alert, awake and oriented x3 HENMT Head: normal to inspection Ears: hearing grossly normal bilaterally Nose: external nose normal Mouth: oral mucosae normal Eyes General: appearance normal, both eyes and all related structures Alignment and Position: alignment normal Periorbital: periorbital findings normal Eyelids: eyelids normal Conjunctivae: conjunctivae normal Neck Neck: normal visual inspection Neck mass: No Thyroid: other (no palpable tissue) Lymphatic: no lymphadenopathy noted Chest Chest palpation & inspection: normal inspection of the chest Resp Effort & Inspection: normal respiratory effort, able to speak in complete sentences, symmetric chest movement, no audible wheezes and no cough Auscultation: Bilateral: Clear to Auscultation Cardio Rate: regular rate Rhythm: regular rhythm Skin General: no rashes or lesions noted Neuro General: patient alert, patient awake and patient oriented x3 Cranial Nerves: CN's II-XI intact bilaterally Cognition: normal cognition Speech: speech normal Gait: antalgic Motor: muscle tone normal throughout Psych Appearance: grossly normal Mental Status: mental status grossly normal Mood: congruent mood Affect: normal affect Speech and Movement: speech and movement normal Attitude: cooperative Thought Process: normal Thought Content: normal Judgment: judgment good Assessment and Plan Assessment and Plan (1) Hypothyroidism: Status: Chronic Qualifiers: Hypothyroidism type: postoperative Qualified Code(s): E89.0 - Postprocedural hypothyroidism Plan: Take levothyroxine on an empty stomach with water at least four hours after eating. Then wait 30-60minutes before consuming any other food or beverage, especially coffee. Separate levothyroxine fromvitamins by at least 4 hours. Stop taking any biotin supplement 4 days prior to having labs drawn. No mass in neck. Check labs. I have spent [24] minutes today reviewing labs, records and history. Time includes coordinating care, interpretation of tests, discussion with patient's other health care providers via telephone. This also includes time I spent with the patient for exam, treatment plan and education as well as documenting clinical information. (2) Hypertension: Status: Chronic Qualifiers: Hypertension type: essential hypertension Qualified Code(s): I10 - Essential (primary) hypertension Plan: Uncontrolled. She refuses dosage change today, states will check BP thru her son. Orders: Orders Thyroid Stim Hormone (TSH) Today E89.0 - Postprocedural hypothyroidism Free T4 Today E89.0 - Postprocedural hypothyroidism Coding Level of Care Code Off vis,est,level 3 Diagnoses Postoperative hypothyroidism E89.0 Hypothyroidism type: postoperative Essential hypertension I10 Hypertension type: essential hypertension 06/06/25 0951 Date _ Anthony Armstrong MD Cosigner Signature: Date (if applicable) CC: ~ [facility]07-15-2025 Progress note Author Anthony Armstrong [facility] Note Date/Time June 06, 2025 9:51 am [facility] [address] [place] [address] OFFICE VISIT Date of Service: 06/06/25 MR#: [id number] Acct: [id number] Name: VANESSA DE LA PAZ Rep #: [id number] : 1970 Provider: Dr. Anthony Armstrong MD Age/Sex: 54/F Location: [facility] Status: Signed Intake Vital Signs 09/15/24 09:19 06/06/25 09:26 Height 5 ft 6 in 5 ft 6 in Weight: 270 lb 273 lb 6 oz BMI 43.5 44.1 BP 138/84 H 154/93 H Blood Pressure Location Lt brachial Rt brachial Position Sitting Sitting Respiration 16 Pulse 69 62 Pulse Source Monitor Monitor Temp 97.3 F L Temp Source Temporal Pulse Oximetry (%) 99 96 Oxygen Delivery Method room air room air Intake Visit Reasons: 9 M FU Chief Complaint: Post surgical hypothyroidism Is patient in pain?: No Allergies codeine Adverse Reaction (Severe, Verified 06/06/25 09:27) Vomiting Medications ?Medication ?Instructions ?Recorded ?Confirmed ?Type calcium carbonate 500 mg PO DAILY@0800 PRN THY ROID 07/11/19 06/06/25 History ergocalciferol (vitamin D2) 1,250 50,000 unit PO .twic e a month #6 01/23/23 06/06/25 Rx mcg (50,000 unit) capsule caps levothyroxine 150 mcg tablet 150 mcg PO DAILY #90 tabs 06/28/24 06/06/25 Rx hydrochlorothiazide 25 mg tablet 25 mg PO DAILY #90 ta bs 04/05/25 06/06/25 Rx metoprolol succinate 25 mg 25 mg PO DAILY #90 tabs 06/06/25 Rx tablet,extended release 24 hr [facility] Medical History (Updated 06/06/25 @ 09:[address] Anthony Armstrong MD) Knee pain Hypokalemia Vitamin D deficiency Thyroid cancer Oral candidiasis DLBCL (diffuse large B cell lymphoma) Thyroid mass Acquired hypothyroidism Hypokalemia Vitamin deficiency Malaise and fatigue Iron deficiency Hypercalcemia Esophageal reflux Lactic acidosis Morbid obesity with BMI of 40.0-44.9, adult Acute respiratory failure with hypoxia Hypothyroidism Hypertension Severe sepsis Community acquired pneumonia Surgical History PORT REMOVAL History of reversal of tubal ligation History of tubal ligation History of parathyroidectomy History of thyroidectomy, total Family History Grandmother Heart disease Father Diabetes Mother Heart disease Lupus Sister Thyroid disorder Aunt Thyroid disorder Social History household members: children current occupational status: employed current occupation: works at grocery store Smoking Status: Never smoker alcohol intake: never substance use type: does not use what type of physical activity do you participate in: walking frequency: 1-2 times per week do you feel safe at home: Yes HPI HPI Chief Complaint: Post surgical hypothyroidism Details: VANESSA DE LA PAZ, is a 54 F who presents to the office today for follow up. She presented with thyroid mass in 2019. She was diagnosed with lymphoma. She was treated by Dr. Kidd. She is doing well. Family life is calmer. She is taking levothyroxine 150 mcg daily. She is due for labs. She has HTN and BP is high today. Son is a engineering model maker. ROS Const Constitutional: No fatigue, weight change or change in appetite Eyes Eyes: No change in vision ENT ENT: No dizziness/vertigo or difficulty swallowing Cardio Cardiology: No chest pain at rest, chest pain with exertion, shortness of breathor palpitations Musc Musculoskeletal: No abnormal gait, joint pain, numbness or tingling Neuro Neurology: No abnormal gait, memory loss, numbness or tingling Psych Psychiatric: No change in appetite, No memory loss and No Thoughts of harming yourself/Others Resp Respiratory: No cough, chest congestion or shortness of breath Gastro GI: No abdominal pain, constipation, diarrhea or difficulty swallowing Genitourinary-Female: No burning urination Skin Skin: No itchy eyes or wounds Endo Endocrine: No fatigue or weight change Aller/Imm Allergy/Immunologic: No itchy eyes Exam Const General: cooperative, healthy appearing, comfortable, no acute distress, well developed and not cushingoid Nutritional Appearance: well nourished and obese Orientation: alert, awake and oriented x3 HENMT Head: normal to inspection Ears: hearing grossly normal bilaterally Nose: external nose normal Mouth: oral mucosae normal Eyes General: appearance normal, both eyes and all related structures Alignment and Position: alignment normal Periorbital: periorbital findings normal Eyelids: eyelids normal Conjunctivae: conjunctivae normal Neck Neck: normal visual inspection Neck mass: No Thyroid: other (no palpable tissue) Lymphatic: no lymphadenopathy noted Chest Chest palpation & inspection: normal inspection of the chest Resp Effort & Inspection: normal respiratory effort, able to speak in complete sentences, symmetric chest movement, no audible wheezes and no cough Auscultation: Bilateral: Clear to Auscultation Cardio Rate: regular rate Rhythm: regular rhythm Skin General: no rashes or lesions noted Neuro General: patient alert, patient awake and patient oriented x3 Cranial Nerves: CN's II-XI intact bilaterally Cognition: normal cognition Speech: speech normal Gait: antalgic Motor: muscle tone normal throughout Psych Appearance: grossly normal Mental Status: mental status grossly normal Mood: congruent mood Affect: normal affect Speech and Movement: speech and movement normal Attitude: cooperative Thought Process: normal Thought Content: normal Judgment: judgment good Assessment and Plan Assessment and Plan (1) Hypothyroidism: Status: Chronic Qualifiers: Hypothyroidism type: postoperative Qualified Code(s): E89.0 - Postprocedural hypothyroidism Plan: Take levothyroxine on an empty stomach with water at least four hours after eating. Then wait 30-60 minutes before consuming any other food or beverage, especially coffee. Separate levothyroxine from vitamins by at least 4 hours. Stop taking any biotin supplement 4 days prior to having labs drawn. No mass in neck. Check labs. I have spent [24] minutes today reviewing labs, records and history. Time includes coordinating care, interpretation of tests, discussion with patient's other health care providers via telephone. This also includes time I spent with the patient for exam, treatment plan and education as well as documenting clinical information. (2) Hypertension: Status: Chronic Qualifiers: Hypertension type: essential hypertension Qualified Code(s): I10 - Essential (primary) hypertension Plan: Uncontrolled. She refuses dosage change today, states will check BP thru her son. Orders: Orders Thyroid Stim Hormone (TSH) Today E89.0 - Postprocedural hypothyroidism Free T4 Today E89.0 - Postprocedural hypothyroidism Coding Level of Care Code Off vis,est,level 3 Diagnoses Postoperative hypothyroidism E89.0 Hypothyroidism type: postoperative Essential hypertension I10 Hypertension type: essential hypertension 06/06/25 0951 <Electronically signed by Anthony Armstrong MD> Date _ Anthony Armstrong MD Cosigner Signature: Date (if applicable) CC: ~ [facility] Work Phone: [phone] NotePatient Outreach (INTMMN) VANESSA DE LA PAZ ([id number]) 1970 F Date Time Provider Department 01/15/22 ANNIE CHIN During your visit today, we recorded the following information about you: Allergies As of Date: 01/15/2022 Noted Allergy Reaction MORPHINE 10/01/2005 11 - Vomiting CODEINE 10/01/2005 8 - GI Upset Date Reviewed: 07/29/2019 Reviewed by: Suzan Freeman LPN - Fully Assessed Visit Diagnosis:Encounter for screening mammogram for breast cancer [Z12.31] Order(s):[facility] SCREENING [[id number]] Order #: [id number] FUTURE Prescriptions as of 01/20/2022 - traZODone (DESYREL) 50 mg tablet Take 1 tablet by mouth daily at bedtime. - cholecalciferol, Vitamin D3, (VITAMIN D3) 1,250 mcg (50,000 unit) cap capsule Take 1 capsule by mouth one time a week. - levothyroxine (SYNTHROID) 175 mcg tablet Take 1 tablet by mouth once daily. - atenolol (TENORMIN) 25 mg tablet Take 1 tablet by mouth once daily. - acyclovir (ZOVIRAX) 400 mg tablet Take 400 mg by mouth twice daily. - predniSONE (DELTASONE) 20 mg tablet Take 100 mg by mouth. Take 100mg every 3 weeks for 5 days - allopurinol (ZYLOPRIM) 300 mg tablet Take 300 mg by mouth once daily. - sulfamethoxazole-trimethoprim (BACTRIM DS,SEPTRA DS) 800-160 mg per tablet Take by mouth. Take one tablet Thursday, Thursday, Thursday - mvkkksobp-xbwwbo-ywocyxtvu HCl 2.5-2.5-3.88 % crea Apply to affected area. Use as directed when accessing port - ondansetron (ZOFRAN) 8 mg tablet Take 8 mg by mouth every 8 hours as needed. - prochlorperazine (COMPAZINE) 10 mg tablet Take 10 mg by mouth every 6 hours as needed. - xbywhfg-dvgkyzdgz-bknlmyn D3 500 mg(1,250mg) -200 unit per tablet Take 1 tablet by mouth four times daily. - calcium carbonate (TUMS) 500 mg chew Take 1 tablet by mouth every hour as needed (mouth or hand numbness or tingling). - albuterol (PROVENTIL) 2.5 mg /3 mL (0.083 %) nebulizer solution Use 3 mL via nebulizer every 4 hours as needed. Use over 5-15minutes. - albuterol HFA (PROAIR HFA) 90 mcg/actuation inhaler Inhale 2 Puffs as instructed every 4 hours as needed. Problem List As Of Date 01/15/2022 Noted Resolved CALCANEAL SPUR [M77.30] 08/04/2007 CHR LYMPHOCYT THYROIDIT [E06.3] ESOPHAGEAL REFLUX [K21.9] ACQUIRED HYPOTHYROID NEC [E03.8] 08/28/2015 Hypercalcemia [E83.52] 03/30/2015 Primary hyperparathyroidism (HCC) [E21.0] 08/28/2015 Iron deficiency anemia due to chronic blood los*08/28/2015 Acquired hypothyroidism [E03.9] 08/28/2015 Malaise and fatigue [R53.81, R53.83] 08/28/2015 Morbid obesity with BMI of 40.0-44.9, adult (HC*03/13/2018 Obesity, Class III, BMI 40-49.9 (morbid obesity*04/21/2018 Vitamin deficiency [E56.9] 03/22/2019 Thyroid mass [E07.9] 06/14/2019 Essential hypertension [I10] 06/14/2019 Acute pulmonary insufficiency following non-tho*06/14/2019 Postoperative pain [G89.18] 06/14/2019 Hypokalemia [E87.6] 06/14/2019 Diffuse large B-cell lymphoma of lymph nodes of*07/29/2019 S/P parathyroidectomy [E89.2] 07/29/2019 S/P subtotal thyroidectomy [E89.0] 07/29/2019 Encounter Status:Closed by AMBROSIO FREITAS on 01/20/22[facility] 07-24-2021 NotePatient Outreach (MIQ) VANESSA DE LA PAZ ([id number]) 1970 F Date Time Provider Department 07/24/21 ARI AVILA (GEOVANNI) MIQ During your visit today, we recorded the following information about you: Ari Avila Pss 07/24/2021 9:39 AM Signed POPULATION HEALTH NAVIGATION OUTREACH Action/FYI Spoke to pt in regards to Colonoscopy/ Colorectal Cancer Screening and pt declined scheduling at this time Contact made with patient or family member? YES Pt identified by name and : YES Outreach Outcome/Action Spoke to patient or caregiver: Patient declined Reason for Outreach Care Gap or Scheduling/Wellness visits Payer: Payor: [employer] MEDICAID / Plan: [employer] MEDICAID / Product Type: Medicaid / Care Gap Reviewed:: Colorectal Cancer Screening Reminder: Reminder note to check Health Maintenance for items below Health Maintenance items due: COVID-19 VACCINE(1) Never done HEPATITIS C SCREENING Never done HIV SCREENING Never done BP CONTROLLED (<130/80) Never done TWO PNEUMOVAX 5 YEARS APART PRIOR TO AGE 65(1) Never done ADULT PREVNAR-13 Never done DTAP,TDAP,TD(1 - Tdap) due on 10/02/2005 PAP TESTING due on 01/11/2015 HPV TESTING due on 01/11/2015 COLORECTAL CANCER SCREENING Never done SHINGRIX VACCINE(1 of 2) Never done DEPRESSION SCREENING due on 03/22/2020 ANNUAL PCP TEAM CHRONIC DISEASE VISIT due on 07/29/2020 INFLUENZA(1) due on 07/24/2021 Ari Avila Pss July 24, 2021 9:39 AM Allergies As of Date: 07/24/2021 Noted Allergy Reaction MORPHINE 10/01/2005 11 - Vomiting CODEINE 10/01/2005 8 - GI Upset Date Reviewed: 07/29/2019 Reviewed by: Suzan Freeman LPN - Fully Assessed Reason for Visit: Population Health Navigation Outreach [3910] Cmt: Colonoscopy/ Colorectal Cancer Screening Prescriptions as of 07/24/2021 - traZODone (DESYREL) 50 mg tablet Take 1 tablet by mouth daily at bedtime. - cholecalciferol, Vitamin D3, (VITAMIN D3) 1,250 mcg (50,000 unit) cap capsule Take 1 capsule by mouth one time a week. - levothyroxine (SYNTHROID) 175 mcg tablet Take 1 tablet by mouth once daily. - atenolol (TENORMIN) 25 mg tablet Take 1 tablet by mouth once daily. - acyclovir (ZOVIRAX) 400 mg tablet Take 400 mg by mouth twice daily. - predniSONE (DELTASONE) 20 mg tablet Take 100 mg by mouth. Take 100mg every 3 weeks for 5 days - allopurinol (ZYLOPRIM) 300 mg tablet Take 300 mg by mouth once daily. - sulfamethoxazole-trimethoprim (BACTRIM DS,SEPTRA DS) 800-160 mg per tablet Take by mouth. Take one tablet Thursday, Thursday, Thursday - sksapqotf-ulrhui-rmkzpovuf HCl 2.5-2.5-3.88 % crea Apply to affected area. Use as directed when accessing port - ondansetron (ZOFRAN) 8 mg tablet Take 8 mg by mouth every 8 hours as needed. - prochlorperazine (COMPAZINE) 10 mg tablet Take 10 mg by mouth every 6 hours as needed. - uwsroiy-lbatgdjsw-znmqcyo D3 500 mg(1,250mg) -200 unit per tablet Take 1 tablet by mouth four times daily. - calcium carbonate (TUMS) 500 mg chew Take 1 tablet by mouth every hour as needed (mouth or hand numbness or tingling). - albuterol (PROVENTIL) 2.5 mg /3 mL (0.083 %) nebulizer solution Use 3 mL via nebulizer every 4 hours as needed. Use over 5-15minutes. - albuterol HFA (PROAIR HFA) 90 mcg/actuation inhaler Inhale 2 Puffs as instructed every 4 hours as needed. Problem List As Of Date 07/24/2021 Noted Resolved CALCANEAL SPUR [M77.30] 08/04/2007 CHR LYMPHOCYT THYROIDIT [E06.3] ESOPHAGEAL REFLUX [K21.9] ACQUIRED HYPOTHYROID NEC [E03.8] 08/28/2015 Hypercalcemia [E83.52] 03/30/2015 Primary hyperparathyroidism (HCC) [E21.0] 08/28/2015 Iron deficiency anemia due to chronic blood los*08/28/2015 Acquired hypothyroidism [E03.9] 08/28/2015 Malaise and fatigue [R53.81, R53.83] 08/28/2015 Morbid obesity with BMI of 40.0-44.9, adult (HC*03/13/2018 Obesity, Class III, BMI 40-49.9 (morbid obesity*04/21/2018 Vitamin deficiency [E56.9] 03/22/2019 Thyroid mass [E07.9] 06/14/2019 Essential hypertension [I10] 06/14/2019 Acute pulmonary insufficiency following non-tho*06/14/2019 Postoperative pain [G89.18] 06/14/2019 Hypokalemia [E87.6] 06/14/2019 Diffuse large B-cell lymphoma of lymph nodes of*07/29/2019 S/P parathyroidectomy [E89.2] 07/29/2019 S/P subtotal thyroidectomy [E89.0] 07/29/2019 Encounter Status:Closed by ARI AGUIAR on 07/24/21[facility] 07-24-2021 NoteHNO ID: [id number] Author: Ari Jay Service: ? Author Type: ? Type: Progress Notes Filed: 07/24/2021 9:39 AM Note Text: POPULATION HEALTH NAVIGATION OUTREACH Action/FYI Spoke to pt in regards to Colonoscopy/ Colorectal Cancer Screening and pt declined scheduling at this time Contact made with patient or family member? YES Pt identified by name and : YES Outreach Outcome/Action Spoke to patient or caregiver: Patient declined Reason for Outreach Care Gap or Scheduling/Wellness visits Payer: Payor: [employer] MEDICAID / Plan: [employer] MEDICAID / Product Type: Medicaid / Care Gap Reviewed:: Colorectal Cancer Screening Reminder: Reminder note to check Health Maintenance for items below Health Maintenance items due: COVID-19 VACCINE(1) Never done HEPATITIS C SCREENING Never done HIV SCREENING Never done BP CONTROLLED (<130/80) Never done TWO PNEUMOVAX 5 YEARS APART PRIOR TO AGE 65(1) Never done ADULT PREVNAR-13 Never done DTAP,TDAP,TD(1 - Tdap) due on 10/02/2005 PAP TESTING due on 01/11/2015 HPV TESTING due on 01/11/2015 COLORECTAL CANCER SCREENING Never done SHINGRIX VACCINE(1 of 2) Never done DEPRESSION SCREENING due on 03/22/2020 ANNUAL PCP TEAM CHRONIC DISEASE VISIT due on 07/29/2020 INFLUENZA(1) due on 07/24/2021 [facility] Date Resolution Status DLBCL (diffuse large B cell lymphoma) chronic DLBCL (diffuse large B cell lymphoma) chronic Anemia chronic DLBCL (diffuse large B cell lymphoma) chronic Constipation resolved Fatigue resolved Oral candidiasis resolved [facility] Work Phone: Evaluation note* Diagnosis Onset Date Resolution Status DLBCL (diffuse large B cell lymphoma) chronic Anemia chronic DLBCL (diffuse large B cell lymphoma) chronic Constipation resolved Fatigue resolved Oral candidiasis resolved [facility] Work Phone: Evaluation note* Diagnosis Onset Date Resolution Status Hypothyroidism chronic [facility] Work Phone: Evaluation note* Diagnosis Onset Date Resolution Status Admit Date Hypertension chronic June 06, 025 9:26am Hypothyroidism chronic June 06, 2025 9:26am [facility] Work Phone: Reason for referral (narrative)No reason for referral information availableGarfield [facility] Center Work Phone: Summary Purpose Family History No Family History Records Found Relationship Condition Age at Onset Recorded Date/T tommy father Diabetes mellitus Unknown mother Heart disease Unknown Lupus Unknown Relationship Condition Age at Onset Recorded Date/T tommy grandmother Heart disease Unknown father Diabetes mellitus Unknown mother Heart disease Unknown Lupus Unknown sister Disorder of thyroid Unknown aunt Disorder of thyroid Unknown Advance Directives No Advanced Directives Records Found Advance Directive Response Recorded Date/ Time Advance Directives No October 31, 2019 11:54am Living Will No October 31 11:54am Power of Regional Sales Coordinator No October 31, 2019 11:54am Advance Directive Response Recorded Date/ Time Advance Directives No October 31, 2019 10:54am Living Will No October 31 10:54am Power of Regional Sales Coordinator No October 31, 2019 10:54am Advance Directive Response Recorded Date/ Time Advance Directives No October 31, 2019 11:54am Chief Complaint and Reason for Visit Chief Complaint F/U LYMPHOMA 4 MO - LABS - REVIEW SCANS REVIEW PET SCAN RESULTS lyphoma, enlarged cervical lymphnode ONC/HEM Reason for Visit DLBCL (diffuse large B cell lymphoma) DLBCL (diffuse large B cell lymphoma) Anemia DLBCL (diffuse large B cell lymphoma) Constipation Fatigue Oral candidiasis Chief Complaint 4 MO - LABS ONC/HEM SCREENING Reason for Visit DLBCL (diffuse large B cell lymphoma) Anemia DLBCL (diffuse large B cell lymphoma) Constipation Fatigue Oral candidiasis Chief Complaint 1 Y FU Reason for Visit Hypothyroidism Chief Complaint Admit Date 9 M FU June 06, 2025 9:26 am Reason for Visit Admit Date Hypertension June 06, 2025 9:26 am Hypothyroidism June 06, 2025 9:26 am Additional Source Comments INFORMATION SOURCE (unrecogn ized section and content) DATE CREATED AUTHOR 02/14/2022 [facility] DATE CREATED AUTHOR AUTHOR'S MICHAEL ATSIL 06/20/2025 [facility] Goals (unrecognized section and content) Goals may be documented in a n alternate sectionGoals may be documented in an alternate sectionGoals may be documented in an alternate sectionGoals may be documented in an alternate sectionGoals may be documented in an alternate section Care Teams (unrecognized sec tion and content) Team Status: Active Member Role Status Dates Dr. Annie Chin MD Family Provider Active Dr. Anthony Armstrong MD Primary Care Provider Active Team Status: Inactive Member Role Status Dates Dr. Anthony Armstrong MD Primary Care Provider, Referring Pr ovider Active Dr. Honorio Waite MD Attending Provider Active Team Status: Active Member Role Status Dates Dr. Annie Chin MD Primary Care Pr ovider, Family Provider, Referring Provider Active Ravindra Olmedo Attending Provider Active Team Status: Inactive Member Role Status Dates Dr. Anthony Armstrong MD Primary Care Provider Active Dr. Honorio Waite MD Attending Provider Active Team Status: Inactive Member Role Status Dates Dr. Anthony Armstrong MD Primary Care Provide r, Attending Provider, Referring Provider Active Team Status: Active Member Role/Relationship Status Dates Dr. Annie Chin MD Family Provider Active Dr. Analia Hancock MD Primary Care Provider Active Team Status: Inactive Member Role/Relationship Status Dates Dr. Anthony Armstrong MD Attending Provider Active Sta rt: June 06, 2025 End: June 06, 2025 Dr. Analia Hancock MD Primary Care Provider Active Start: June 06, 2025 End: June 06, 2025 Out of Town Doctor Referring Provider Active Sta rt: June 06, 2025 End: June 06, 2025 Team Status: Inactive Member Role/Relationship Status Dates Dr. Analia Hancock MD Primary Care Provider Active Start: June 13, 2025 End: June 13, 2025 Dr. Anthony Armstrong MD Attending Provider Active Sta rt: June 13, 2025 End: June 13, 2025 Dr. Anthony Armstrong MD Referring Provider Active Sta rt: June 13, 2025 End: June 13, 2025 FOR RECORDS PERTAINING TO PATIENTS WHO ARE OR HAVE BEEN ENROLLED IN A CHEMICAL DEPENDENCY/SUBSTANCEABUSE PROGRAM, SOME INFORMATION MAY BE OMITTED. This clinical summary was aggregated from multiple sources. Caution should be exercised in using it in the provision of clinical care. This summary normalizes information from multiple sources, and as a consequence, information in this document may materially change the coding, format and clinical context of patient data. In addition, data may be omitted in some cases. CLINICAL DECISIONS SHOULD BE BASED ON THE PRIMARY CLINICAL RECORDS. [facility]. provides no warranty or guarantee of the accuracy or completeness of information in this document.
--- NOTE | 2025-11-15 07:07 | EX.ED.DYSGE1 ---
HPI History of Present Illness Chief Complaint: Edema Informant: patient Narrative Narrative: Patient is a 55-year-old female with past medical history of hypothyroidism and hypertension. She states she had dental work done the previous day and that they were drilling around her fillings in the right upper molars. She states she went to bed which is mild soreness from the procedure then awoke with right sided facial swelling pain and redness. She denies any trouble breathing or swallowing or change in vision but has concern for an infection based on the sudden onset of symptoms and her recent procedure and therefore comes in for evaluation [facility] Medical History (Updated 11/15/25 @ 08:[address] Jose Armando Sun, DO) Knee pain Hypokalemia Vitamin D deficiency Thyroid cancer Oral candidiasis DLBCL (diffuse large B cell lymphoma) Thyroid mass Acquired hypothyroidism Hypokalemia Vitamin deficiency Malaise and fatigue Iron deficiency Hypercalcemia Esophageal reflux Lactic acidosis Morbid obesity with BMI of 40.0-44.9, adult Acute respiratory failure with hypoxia Hypothyroidism Hypertension Severe sepsis Community acquired pneumonia Home Medications ?Medication ?Instructions ?Recorded ?Last Taken ?Type metoprolol succinate 25 mg 25 mg PO DAILY #90 tabs 10/02/25 Unknown Rx tablet,extended release 24 hr hydrochlorothiazide 25 mg tablet 25 mg PO DAILY #90 tabs 10/12/25 Unknown Rx levothyroxine 150 mcg tablet 150 mcg PO DAILY #90 tabs 10/23/25 Unknown Rx amoxicillin 875 mg-potassium 1 tab PO BID 10 days #20 tabs 11/15/25 Unknown Rx clavulanate 125 mg tablet Allergy/AdvReac Type Severity Reaction Status Date / Time codeine AdvReac Severe Vomiting Verified 11/15/25 06:23 Family History Grandmother Heart disease Father Diabetes Mother Heart disease Lupus Sister Thyroid disorder Aunt Thyroid disorder Surgical History PORT REMOVAL History of reversal of tubal ligation History of tubal ligation History of parathyroidectomy History of thyroidectomy, total Social History household members: children current occupational status: employed current occupation: works at [employer] Smoking Status: Never smoker alcohol intake: never substance use type: does not use what type of physical activity do you participate in: walking frequency: 1-2 times per week do you feel safe at home: Yes ROS ROS ED Constitutional Constitutional ED: Denies chills or fever(s) Eyes Eyes: Denies change in vision ENT ENT ED: Reports other Details: Positive facial pain redness and swelling ; Denies sore throat Cardiovascular Cardiovascular: Denies chest pain Respiratory/Chest Respiratory/Chest: Denies cough or dyspnea Gastrointestinal Gastrointestinal: Denies abdominal pain, diarrhea, nausea or vomiting Musculoskeletal Musculoskeletal: Denies myalgias or neck pain Integumentary Reports other Details: Positive right facial/cheek redness and swelling Neurologic Neurologic: Denies headache(s) Hematologic/Lymphatic Hematologic/Lymphatic: Denies easy bleeding or easy bruising Allergic/Immunologic Allergic/Immunologic ED: Denies mouth swelling or tongue swelling EXAM Physical Exam Const Vital Signs: 11/15/25 06:22 11/15/25 07:18 11/15/25 07:19 Temperature 99.9 F H 99.9 F H 99.9 F H Temperature Source Oral Pulse Rate 110 H 110 H 110 H Respiratory Rate 18 18 18 Blood Pressure 177/111 H 159/90 H 159/90 H Blood Pressure Mean 133 113 113 Pulse Ox 95 95 95 Oxygen Delivery Method Room Air Positive well nourished and well developed General Appearance ED: well developed HEENT HEENT Narrative: Normocephalic atraumatic There is soft tissue swelling with asymmetric erythema and warmth along the right cheek compared to left without obvious abscess formation or crepitance noted No tongue or lip swelling no oral lesions no airway edema or compromise Eyes PERRL and EOMs intact bilaterally General Eye ED: Negative for scleral icterus Neck supple Neck Narrative: Positive anterior cervical lymphadenopathy is noted Resp normal respiratory effort and clear to auscultation bilaterally Cardio regular rate and regular rhythm Extremity normal to inspection Neuro oriented x3, CN's II-XII intact bilaterally and no sensory deficits noted Sensorium / Orientation: alert Motor Exam: strength 5/5 throughout Psych mental status grossly normal Skin Skin Narrative: Soft tissue changes to the right cheek as documented above MDM MDM MDM Narrative Medical decision making narrative: Patient arrived to the ER hypertensive but has a past medical history of this. With her recent dental procedure followed by sudden onset of symptoms there is high concern for tracking of oral klaus into the soft tissue and/or sinus cavity leading to secondary infection such as cellulitis. There is no obvious abscess formation at this time. Physical exam does not show airway edema or compromise or concerning for epiglottitis or Bert's angina. I discussed with patient that we could perform a CT scan of the face as well as basic labs to ensure no signs of systemic infection developing abscess or sinus perforation. The patient states however that she would prefer just to take antibiotics as overall she feels well to see if this will just help resolve the symptoms. As the patient does not have signs of airway compromise and there would be no emergent surgical intervention needed if there was perforation of the maxillary sinus other than antibiotics to cover for infection and allow spontaneous healing I will place her on Augmentin. The patient states that she understands to return if there is no improvement of symptoms or it is worsening over the next few days as she may require further intervention such as imaging IV antibiotics and/or blood work. However at this time as there is no signs of respiratory distress and patient feels at baseline I will simply start antibiotics and she is otherwise safe for discharge History & Record Review Discussion w/independent historian: Patient Discharge Plan Triage Chief Complaint: Edema ED Provider: Jose Armando Sun Dx/Rx/DC Orders Clinical Impression: Facial cellulitis, Hypertension, Hypothyroidism Instructions: ED Cellulitis, Facial Prescriptions: New amoxicillin-pot clavulanate 875-125 mg tablet 1 tab PO BID 10 Days Qty: 20 0RF No Action metoprolol succinate 25 mg tablet extended release 24 hr 25 mg PO DAILY Qty: 90 1RF hydrochlorothiazide 25 mg tablet 25 mg PO DAILY Qty: 90 1RF levothyroxine 150 mcg tablet 150 mcg PO DAILY Qty: 90 3RF Primary Care Provider: Analia Hancock Referrals: Analia Hancock MD [Primary Care Provider, Internal Medicine] Activity Restrictions/Additional Instructions: Your history and exam is consistent with a facial infection most likely introduced by your recent dental procedure. It will typically take 2 to 3 days for the antibiotic to show improvement. Continue with Tylenol and/or Motrin for fever and pain control. If the redness and swelling continues to progress despite treatment you have difficulty breathing or swallowing or any further concerns and return to the ER for repeat evaluation which will most likely include blood work IV antibiotics and CT scan. Print Language: Citizen Of [place] Disposition Disposition: Home, Self Care Discharge Date/Time: 11/15/25 07:20
[2025-11-15 07:18] VITALS: BP 159/90; PULSE 110; RESP 18; TEMP 37.7; O2SAT 95
[2025-11-15 07:19] VITALS: BP 159/90; PULSE 110; RESP 18; TEMP 37.7; O2SAT 95
== END 2025-11-15 07:20 | disposition home or self-care (01) ==
PROVIDERS: Emergency Provider Emergency Medicine; PCP Internal Medicine; Visit Provider Emergency Medicine
DX: L03.211 Cellulitis of face (principal); I10 Essential (primary) hypertension; R60.9 Edema, unspecified; E03.9 Hypothyroidism, unspecified; Z85.850 Personal history of malignant neoplasm of thyroid; Z79.899 Other long term (current) drug therapy; Z79.890 Hormone replacement therapy; Z98.51 Tubal ligation status
CPT/HCPCS: 99283